=== PATIENT | female | born 1940 | race Caucasian/White ===

== ENCOUNTER 2024-10-28 13:07 | Inpatient (IN) | payer MEDICARE, OTHER, SELFPAY ==
[2024-10-28] VITALS (39 sets, daily range): BP systolic 76–103; BP diastolic 41–62; BMI 26.3
--- NOTE | 2024-10-28 10:03 | ED.GENMED ---
History of Present Illness
General
Chief Complaint: Rectal Bleeding
Time Seen by Provider: 10/28/24 09:52
History of Present Illness
History of Present Illness:
Patient is a 84-year-old woman presenting to the emergency department with vomiting blood. Patient states for the past few weeks she has been taking 880 mg of Aleve a day for leg pain. She states that yesterday she was nauseous. This morning she
woke up nauseous and then vomited bright red blood some clots. She also noticed some maroon-colored stool. She is having some vague epigastric abdominal pain. No prior endoscopy or colonoscopy that she remembers. She denies any lightheadedness
dizziness. She is not on a blood thinner. Per paperwork the patient arrives with her last hemoglobin was 11.1 in September.
Past History
Past History
ED Past Medical History: Other (osteoarthitis)
ED Past Surgical History: Orthopedic (ORIF of femur fx folling auto-ped)
Social History
Tobacco: Non-smoker
Alcohol: None
Drug: None
Phy Exam
Physical Exam
Physical Exam:
GENERAL: Pale
HEENT: normocephalic, extraocular movements intact, moist oral mucosa
NECK: normal inspection
RESPIRATORY: no respiratory distress, clear to auscultation bilaterally
CARDIOVASCULAR: regular rate and rhythm
ABDOMEN/: soft, non-distended, epigastric tenderness,, no rebound or guarding
EXTREMITIES: non-tender, no edema/swelling
NEUROLOGIC: awake and alert, moves all extremities
SKIN: warm
Course
Orders/Labs/Results
Orders:
Orders
10/28/24 09:57
Pantoprazole [Protonix IV] 80 mg IV NOW STA
10/28/24 09:58
Electrocardiogram (*1) Stat
Reason for Study: Other
Other Reason for Exam: GI Bleed
EKG- Treatment ONCE
IV Insert/Care/Rem.- Treatment PRN
10/28/24 10:11
Type+Screen Urgent
Complete Blood Count/With Diff Urgent
Comprehensive Metabolic Panel Urgent
Lipase Urgent
PTT Urgent
Prothrombin Time Urgent
10/28/24 10:24
0.9% Sodium Chloride 1000 ml [Nss] 1,000 ml IV BOLUS
10/28/24 10:49
ABO2 Urgent
BBK Wristband Number:
Associate notified that ABO2 has been ordered: [id number]
Date: 10/28/24
Time: 10:43
Scrip Clerk ID: [id number]
10/28/24 10:50
* Blood Bank Products Urgent
Blood Bank Products: *Packed RBC Leuko(PRBC's)
Quantity: 3
Transfuse Today: Yes
Reason: Anemia
Abnormal Lab Results
10/28/24
10:11
WBC 39.2 H 10^3/uL
(4.8-10.8)
RBC 1.94 L 10^6/uL
(4.20-5.40)
Hgb 5.2 L* g/dL
(12.0-16.0)
Hct 16.4 L* %
(37.0-47.0)
MCH 26.8 L pg
(27.0-31.0)
MCHC 31.7 L g/dL
(33.0-37.0)
RDW 14.9 H %
(11.5-14.5)
Plt Count 435 H 10^3/uL
(130-400)
PT 15.1 H Sec
(11.4-14.6)
Sodium 130 L mmol/L
(135-145)
Chloride 96 L mmol/L
(98-107)
BUN 31 H mg/dl
(7-17)
Creatinine 0.4 L mg/dL
(0.6-1.0)
Glucose 114 H mg/dl
(70-99)
Total Protein 3.9 L g/dl
(6.3-8.2)
Albumin 1.9 L g/dl
(3.5-5.0)
10/28/24 10:11
10/28/24 10:11
Vital Signs
Initial and Last Documented VS:
Initial Vital Signs
Temp Pulse Resp BP Pulse Ox
97.5 F 84 16 76/41 99
10/28/24 09:42 10/28/24 09:42 10/28/24 09:42 10/28/24 09:42 10/28/24 09:42
Last Documented Vital Signs
Temp Pulse Resp BP Pulse Ox
97.5 F 78 16 93/49 95
10/28/24 09:42 10/28/24 10:31 10/28/24 10:53 10/28/24 10:31 10/28/24 10:18
MDM/Problems Addressed
Differential Diagnosis Includes:
Patient is a 84-year-old woman presenting to the emergency department with GI bleeding. Vitals initially notable for blood pressure of 76/41 exam does show woman who is pale appearing. She is not actively vomiting. Concern for upper GI bleed and
possible lower GI bleed given the maroon-colored stool. Will give Protonix and fluids. Low threshold to initiate blood. Will check blood work as well as CTA. Will reach out to GI.
After discussion with GI, we will hold off on CTA. Patient does need endoscopy.
*Critical Care Note
Total Time (30-74mins, 75-104mins- exclusive of procedures): Not Applicable
Update Note
Update Note:
On reevaluation patient blood pressure has been improving with the fluids.
Hemoglobin is 5.2. Will order blood transfusion. If patients blood pressure drops will start emergent transfusion.
I did update GI who will take patient up to the lab later this afternoon. Discussed with hospitalist who accepted patient to their service.
ED Attending Note
-
Portions of this chart may have been created with voice recognition software.� Occasional wrong word or��sound alike� substitutions may have occurred due to the inherent limitations of voice recognition software.
Discharge Plan
Departure
Patient Disposition: Admit
Date of Disposition: 10/28/24
Time of Disposition: 11:06
Presentation/result/management discussed w/ accepting MD/DO: Hospitalist
Discharge Problem:
Acute upper GI bleed
Prescriptions:
No Action
naproxen sodium [Aleve] 220 MG tablet
220 mg PO PRN PRN (Reason: pain.)
acetaminophen 325 MG tablet
650 mg PO Q4HPRN PRN (Reason: mild to moderate pain) Qty: 0 0RF
Referrals:
UNKNOWN - PT DOES,NOT KNOW [Family Provider] -
Interventions
Interventions:
*Risk Screen - Suicide Last Done: 10/28/24 09:42
*General Assessment Last Done: 10/28/24 09:42
*Neglect/Abuse Screening Last Done: 10/28/24 09:42
ED- Fall Risk Assessment Last Done: 10/28/24 10:18
*ED COVID-19 Vaccine History Last Done: 10/28/24 10:53
EJ-Fhtlou-Riwsbcubjr Assessment Last Done: 10/28/24 10:18
ED- Cardiac Assessment Last Done: 10/28/24 10:18
ED- Pulmonary Assessment Last Done: 10/28/24 10:18
Discharge Date and Time
Print Language: TAMAZIGHT
[2024-10-28] MEDS: PROTONIX IV 80 MG IV (10:15)
[2024-10-28] MEDS: NSS 1000 IV (10:24)
[2024-10-28 10:44] LABS: INR 1.14; PT 15.1 Sec (11.4-14.6)
[2024-10-28 10:45] LABS: ALT (SGPT) 12 U/L (0-35); APTT 29.1 Sec (23.4-35.0); AST (SGOT) 21 U/L (14-36); Albumin 1.9 g/dl (3.5-5.0); Alkaline Phosphatase 71 U/L (38-126); Blood Urea Nitrogen 31 mg/dl (7-17); Calcium 8.5 mg/dl (8.4-10.2); Carbon Dioxide 30 mmol/L (22-30); Chloride 96 mmol/L (98-107); Glucose 114 mg/dl (70-99); Lipase 129 U/L (23-300); Sodium 130 mmol/L (135-145); Total Bilirubin 0.4 mg/dl (0.2-1.3); Total Protein 3.9 g/dl (6.3-8.2); eGFR > 60.00
[2024-10-28 10:47] LABS: Hematocrit 16.4 % (37.0-47.0); Hemoglobin 5.2 g/dL (12.0-16.0); Mean Corp Hgb Conc. 31.7 g/dL (33.0-37.0); Mean Corpuscular Hgb 26.8 pg (27.0-31.0); Mean Corpuscular Volume 84.5 fL (81.0-99.0); Mean Platelet Volume 8.9 fL (7.4-10.4); Platelet Count 435 10^3/uL (130-400); Red Blood Cell Count 1.94 10^6/uL (4.20-5.40); Red Cell Dist. Width 14.9 % (11.5-14.5); White Blood Cell Count 39.2 10^3/uL (4.8-10.8)
[2024-10-28 11:28] LABS: % Basophils 0.3 % (0-2); % Eosinophils 0.1 % (0-6); % Immature Granulocytes 1.7 % (0-0.5); % Lymphocytes 2.5 % (20.5-51.1); % Monocytes 4.2 % (1.7-9.3); % Neutrophils 91.2 % (42.2-75.2); Absolute Basophils 0.1 10^3/uL (0-0.2); Absolute Immature Granulocytes 0.7 10^3/uL (0-0.05); Absolute Monocytes 1.7 10^3/uL (0.1-0.6); Absolute Neutrophils 35.7 10^3/uL (1.4-6.5); Nucleated Red Blood Cells % 0 %
--- NOTE | 2024-10-28 11:31 | CON.GI ---
Addendum entered and electronically signed by Alexandra Nye MD 10/28/24 16:30:
I saw and examined the patient.
The GHOST WRITER's note was reviewed and I agree with the note.
Comment: This is a very pleasant 84-year-old female with past medical history as listed below who presented to the emergency room with symptoms of hematemesis. She had been having edema and saw her PCP about a month ago and had blood work done and
was thought to be related to hypoalbuminemia and was told to take more protein supplements also. She is also been recently taking more NSAIDs for joint pain with swelling and yesterday had hematemesis and also had dark stool. Her labs showed
elevated WBC of 39.2 profound anemia with a hemoglobin of 5.2 down from 11.1 in September and thrombocytosis with hyponatremia and also iron deficiency and B12 deficiency.
Assessment and plan acute blood loss anemia with hematemesis and melena. Will schedule her for urgent endoscopy after she gets at least 3 units of packed red blood cells since she was also hypotensive on presentation. She is going to continue on
Protonix drip which has been started in the ER. given her recent use of NSAIDs will need to rule out possible PUD. She also has iron deficiency anemia and will need to rule out possible chronic blood loss from angioectasias or neoplasm. She also
has diffuse anasarca and significant hypoalbuminemia and also B12 deficiency. She will need to be started on B12 supplements and IV iron infusions also. Avoid NSAIDs. Will need further workup for leukocytosis, thrombocytosis and anasarca will
defer to primary may need hematology consult.
Original Note:
Consultation
-
Date/Time Consultation Requested: 10/28/24 1030
Date/Time Consultation Performed: 10/28/24 1130
Requesting Provider: Marilee Boyd MD
Performing Provider: ERVIN Bolden, Alexandra Nye MD
Reason for Consultation: Gi bleed
Medical History
Chief Complaint / HPI
Chief Complaint: GI bleed
History of Present Illness:
Pt is an 84 yo with hx sudhir, hysterectomy, ORIF femur, arthritis, hernia repair with mesh for incarcerated hernia with SB resection presents to ER today with onset of nausea with vomiting red blood and clots. In review with patient and family
noted with fall and rib fractures 3 months ago with Tylenol use then recent onset of diffuse swelling. She saw PCP in September with hbg 11.1 with some elevation of platelets. She began taking NSAID- Aleve 2 tabs BID for pain with swelling and noted
onset of nausea 10/27 then vomiting red blood 2 episode with second episode about 50ml of blood and presents to ER for evaluation. She was also noted with dark stool at home on day of admission. On admission she is noted hypotension with labs
noted WBC 39.2, hbg 5.2 with platelets 435, Na 130, creat 0.4, albumin 1.9.
Pt otherwise denies dysphagia, GERD, nausea, vomiting, wt loss, diarrhea, constipation, or prior bleeding. Pt states possible colonoscopy in past. Family denies hx EGD or colonoscopy in past.
Past Medical History
Past Medical History: Other (osteoarthritis )
Past Surgical History: Cholecystectomy, Gynecological (hysterectomy), Orthopedic (LLE traumatic injury with ORIF femur ) and Other (open umbilical hernia with mesh and SB resection)
Social History
Tobacco: Non-Smoker
Alcohol: None
Drug: None
Living: With Family
Employment: Retired
Family History
Family History: Other (no family hx GI issues, colon CA etc. )
Allergies / Home Medications
Allergy/AdvReac Type Severity Reaction Status Date / Time
No Known Allergies Allergy Verified 10/28/24 09:46
�Medication �Instructions �Recorded
naproxen sodium 220 mg tablet 220 mg PO PRN PRN pain. 11/21/18
(Aleve)
acetaminophen 325 mg tablet 650 mg (2 x 325 mg) PO Q4HPRN PRN 11/27/18
mild to moderate pain #0 tabs
Review of Systems
-
History Source: Patient and Family (granddaughter at bedside )
Constitutional: Reports Weight Gain (with new swelling ) and Fatigue
EENT: Reports No Symptoms
Respiratory: Reports No Symptoms
Cardiac: Reports No Symptoms
Abdomen/GI: Reports Nausea, Vomiting (blood emesis ) and Black Stools (prior to admission)
Musculoskeletal: Reports Other (new onset of diffuse anasarca )
Skin: Reports No Symptoms
Neurological: Reports Weakness
Endocrine: Reports No Symptoms
Hematologic/Lymphatic: Reports Bleeding
Vital Signs
Temp Pulse Resp BP Pulse Ox
97.5 F 80 14 96/52 96
10/28/24 09:42 10/28/24 11:15 10/28/24 11:15 10/28/24 11:15 10/28/24 11:15
Physical Exam
Exam
General: Other (pale appearing, diffuse anasarca in leg and also in arms )
HEENT: Normocephalic
Respiratory: Clear
Cardiac: Regular Rhythm
GI: Soft, Non Tender and Non Distended
Rectal: Other (dark prior to admission)
Musculoskeletal: No Clubbing and No Cyanosis
Skin: Warm and Dry
Neuro: Awake, Alert and AO x 3
Psych: Calm
Results
WBC 39.2 10^3/uL (4.8-10.8) H 10/28/24 10:11
Hgb 5.2 g/dL (12.0-16.0) L* 10/28/24 10:11
Hct 16.4 % (37.0-47.0) L* 10/28/24 10:11
MCV 84.5 fL (81.0-99.0) 10/28/24 10:11
Plt Count 435 10^3/uL (130-400) H 10/28/24 10:11
Absolute Neuts (auto) 35.7 10^3/uL (1.4-6.5) H 10/28/24 10:11
PT 15.1 Sec (11.4-14.6) H 10/28/24 10:11
INR 1.14 10/28/24 10:11
APTT 29.1 Sec (23.4-35.0) 10/28/24 10:11
Sodium 130 mmol/L (135-145) L 10/28/24 10:11
Potassium 5.0 mmol/L (3.5-5.1) 10/28/24 10:11
Chloride 96 mmol/L (98-107) L 10/28/24 10:11
Carbon Dioxide 30 mmol/L (22-30) 10/28/24 10:11
BUN 31 mg/dl (7-17) H 10/28/24 10:11
Creatinine 0.4 mg/dL (0.6-1.0) L 10/28/24 10:11
Calcium 8.5 mg/dl (8.4-10.2) 10/28/24 10:11
Total Bilirubin 0.4 mg/dl (0.2-1.3) 10/28/24 10:11
AST 21 U/L (14-36) 10/28/24 10:11
ALT 12 U/L (0-35) 10/28/24 10:11
Alkaline Phosphatase 71 U/L (38-126) 10/28/24 10:11
Lipase 129 U/L (23-300) 10/28/24 10:11
Diagnostic Image Results:
Prior GI Procedures:
EGD: none
Colonoscopy: ? in past per pt -- family denies
Assessment / Plan
-
Pt is an 84 yo with hx sudhir, hysterectomy, ORIF femur, arthritis, hernia repair with mesh for incarcerated hernia with SB resection presents to ER today with onset of nausea with vomiting red blood and clots. In review with patient and family
noted with fall and rib fractures 3 months ago with Tylenol use then recent onset of diffuse swelling. She saw PCP in September with hbg 11.1 with some elevation of platelets. She began taking NSAID- Aleve 2 tabs BID for pain with swelling and noted
onset of nausea 10/27 then vomiting red blood 2 episode with second episode about 50ml of blood and presents to ER for evaluation. She was also noted with dark stool at home on day of admission. On admission she is noted hypotension with labs
noted WBC 39.2, hbg 5.2 with platelets 435, Na 130, creat 0.4, albumin 1.9. Family denies hx EGD or colonoscopy in past.
-onset of nausea/vomiting with hematemesis
-recent NSAID use
- anemia with drop in hbg 11.1 in September to 5.2 on admission
-new onset anasarca/hypoalbuminemia
-leukocytosis
-thrombocytosis
-hyponatremia
-hx fall with rib fx 3 months ago
other med problems:
-sudhir
-hysterectomy
-ORIF femur
-arthritis
-hernia repair with mesh with SB resection
PLAN:
etiology of hematemesis with acute drop hbg 11.1 in September to 5.2 today unclear -- PUD with recent NSAID use, ectasia, mass vs other
concern for some other underlying process with new diffuse anasarca, hypoalbuminemia, hyponatremia -- reviewed with Dr. Dang-- for echo, urine studies
trend hbg agree with transfusion
possible EGD later today vs tomorrow -will review with Dr. Nye with other medical issues and first transfusion running now
PPI gtt
add iron studies, B12, folate
NSAID avoidance
consider eventual colonoscopy inpatient vs outpatient pending course
granddaughter updated at bedside
-
-
Thank you for consultation and allowing me to participate in the patient's care. Please call the foreign law consultant GI physician during the after hours with any questions or concerns.
--- NOTE | 2024-10-28 12:13 | HPS.HSE ---
Family Physician
-
Family Physician: NOT KNOW UNKNOWN - PT DOES
Chief Complaint
-
vomiting
History of Present Illness
84-year-old female extensive past medical history is presenting from home with complaints of nausea and vomiting of bright red blood. Patient granddaughter is able to fill in the details of the history. Per patient granddaughter post hernia
surgery patient appetite has significantly decreased. Patient was having significant amount of body pain extremity pain. Patient saw primary doctor last month where blood work was checked was found patient had hemoglobin of 11 with elevated
platelets and low albumin. Patient with significantly poor appetite. Patient with weight loss. Granddaughter states of noticing lower extremity edema and bilateral upper extremity edema. No prior history of cardiac or renal disease. Because of
the lower extremity edema pain patient was taking increasing amount of naproxen. Also with maroon colored stools.
Medical History
Past Medical History
Past Medical History: Reports Other
Additional Past Medical History:
Osteoarthritis
Umbilical hernia
Past Surgical History: Reports Other
Additional Past Surgical History:
Hysterectomy
Cholecystectomy
Left tibial plates
Umbilical hernia with mesh and bowel resection
Social History
Tobacco: Non-smoker
Alcohol: None
Living: With Family
Family History
Family History: Not pertinent
Allergies / Home Medications
Allergies reflects when Allergies were last updated in [employer].
Home Medications with original date entered in [employer]
Allergy/Medication List:
Allergies
Allergy/AdvReac Type Severity Reaction Status Date / Time
No Known Allergies Allergy Verified 10/28/24 09:46
Home Medications
naproxen sodium 220 mg tablet (Aleve) 440 mg PO BID 11/21/18
Review of Systems
-
History Source: Patient and Family (Granddaughter)
A 12 point ROS was completed and negative except as noted: Yes
Physical Exam
Vital Signs
Vital Signs
Temp Pulse Resp BP Pulse Ox
97.5 F 74 16 92/55 98
10/28/24 12:04 10/28/24 12:04 10/28/24 12:04 10/28/24 12:04 10/28/24 12:04
Physical Exam
General: No Apparent Distress and Cachectic
HEENT: NormoCephalic, Moist mucous membranes and Atraumatic
Respiratory: Clear
Cardiac: S1/S2 and Regular Rhythm; No Murmur or Rub
GI: Soft, Non Tender, Non Distended and Normal Bowel Sounds; No Organomegaly
Rectal: Deferred by Provider
Musculoskeletal: No Clubbing, No Cyanosis, Edema, Left Upper Extremity, Edema, Right Upper Extremity, Edema, Left Lower Extremity and Edema, Right Lower Extremity
Skin: No Rash
Neuro: Awake, Alert, Oriented, AO x 3, No Motor Deficits and Nonfocal/grossly intact
Psych: Calm
Laboratory Results
-
10/28/24 10:11
10/28/24 10:11
Laboratory Results
PT 15.1 Sec (11.4-14.6) H 10/28/24 10:11
INR 1.14 10/28/24 10:11
APTT 29.1 Sec (23.4-35.0) 10/28/24 10:11
Total Bilirubin 0.4 mg/dl (0.2-1.3) 10/28/24 10:11
AST 21 U/L (14-36) 10/28/24 10:11
ALT 12 U/L (0-35) 10/28/24 10:11
Alkaline Phosphatase 71 U/L (38-126) 10/28/24 10:11
Lipase 129 U/L (23-300) 10/28/24 10:11
Impression/Plan
-
#Hematemesis suspected acute upper GI bleeding exacerbated due to NSAID usage
#Acute blood loss anemia
#Shock likely hemorrhagic due to volume loss
Agree with blood transfusion. Recheck hemoglobin post blood transfusion
Start pressors if needed
Status post PPI bolus. Continue with Protonix drip
Avoid all NSAIDs. This was discussed with patient and granddaughter at bedside. Patient verbalized understanding
Plan for endoscopy later today versus tomorrow
Colonoscopy per GI
Monitor in the ICU
GI evaluated patient
Hr Receptionist consultation
#Iron deficiency anemia
#Vitamin B12 deficiency
Start patient on IV iron while here
Start patient B12 supplementation
#Anasarca/hypoalbuminemia
Low albumin likely could be due to dietary deficiency
Check urine protein creatinine ratio
Check echocardiogram
Gentle IV fluids if needed
Creatinine normal. Check urine for proteinuria
If it worsening anasarca may need gentle diuresis if blood pressure can tolerate
#Severe leukocytosis
Could be reactive due to episode of GI bleeding
If patient spikes fevers blood culture and chest x-ray
Trend CBC for now
#Thrombocytosis
Monitor for now
#Mild hyponatremia likely second to hypovolemia
Status post IV fluid bolus
Trend sodium for now
If with persistent drop then check urine lites
Sodium at 130.
DVT prophylaxis SCDs in the setting of GI bleeding
Full code
Total Critical Care Time 40_ minutes. I was immediately available to the patient and staff. I personally examined, reviewed labs, diagnostic images/reports, interpretations, treatment plans, discussed patient care with other providers and family
or caregivers (if patient is unable to make decisions), entered orders as appropriate and documented the medical record.
[2024-10-28 13:23] LABS: Iron 23 ug/dl (37-170)
[2024-10-28 13:32] LABS: Percent Saturation 10 % (20-50); Total Iron Binding Capacity 224 ug/dl (265-497)
[2024-10-28 14:50] LABS: Folate 5.6 ng/ml (2.76-20); Vitamin B12 180 pg/ml (239-931)
[2024-10-28] MEDS: PROTONIX 100 IV ×2 (14:59→23:44)
--- NOTE | 2024-10-28 16:03 | CON.INTV ---
Consultation
Consultation Request
Date/Time Consultation Requested: 10/28/2024 12:07
Date/Time Consultation Performed: 10/28/2024 14:00
Requesting Provider: Ede Dang MD
Performing Provider: Ramón Vance MD; Robe Kellogg DO (Resident)
Reason for Consultation: Acute GI Bleed
Medical History
-
History of Present Illness:
This is an 84 year old female with a past medical history of osteoarthritis and a recent fall 3 months ago with resultant rib injury who presented to the emergency department this morning after having 2 episodes of hematemesis and 1 episode of
melena earlier this morning. The patient states that she felt to be in her usual state of health until yesterday, when she started to feel mildly nauseous. This morning, the nausea continued, and the patient had 2 episodes of a moderate amount of
bloody clot-laden emesis. At this point, she called her daughters who felt that the patient seemed weak and fatigued. The patient herself endorses a feeling of weakness, and shortness of breath with exertion after the episodes of hematemesis +
melena that is out of the ordinary for her. The patient otherwise denies any headaches, chest pains, shortness of breath at rest, diarrhea, constipation.
Less acutely, the patient notes that she has experienced swelling of her bilateral upper and lower extremities for approximately 3 months. The patient, who does not normally go to the doctor, went to her primary care physician. Hemoglobin at that
visit was 11.1, and the swelling was thought to be due to low total body protein. Additionally, during this time, the patient started to use Aleve (220 mg x 2 tabs, BID) for her chronic osteoarthritic pain and pain from a recent fall in which she
injured her ribs (denies fracture).
In the Emergency Department, the patient appeared pale with a benign abdomen. However, laboratory studies revelead a Hb of 5.2, Hct of 16.4 and mild thrombocytosis of 433 (patient notes mild thrombocytosis was also seen on prior outpatient labs in
Sep) and leukocytosis of 39.2 with neutrophilic predominance. Patient was additionally hyponatremic at 130, hypoalbuminemic at 1.9, and iron studies with an anemia of chronic disease pattern. The patient was type/screened, given 3U pRBCs, started on
IVF resuscitation and Protonix with emergent evaluation by gastroenterology. Patient was admitted to the ICU for intensive management of acute GI bleed.
Past Medical History
Past Medical History: Other (osteoarthritis )
Past Surgical History: Other (Cholecystectomy, hysterectomy, open reduction internal fixation, hernia repair with mesh)
Social History
Tobacco: Non-smoker
Alcohol: Occasional
Drug: None
Living: With Family
Family History
Family History: Reviewed & Not Pertinent
Allergies / Home Medications
Allergies
Allergy/AdvReac Type Severity Reaction Status Date / Time
No Known Allergies Allergy Verified 10/28/24 09:46
Home Medications
�Medication �Instructions �Recorded �Confirmed �Last Taken �Type
naproxen sodium 220 mg tablet 440 mg PO BID 11/21/18 10/28/24 10/27/24 History
(Aleve)
Review of Systems
-
History Source: Patient and Family
Constitutional: Fever (n), Fatigue and Chills (n)
EENT: Other (dysphagia (n))
Respiratory: No Symptoms
Cardiac: No Symptoms
Abdomen/GI: Abdominal Pain (n), Nausea, Vomiting (2 episodes of hematemesis), Diarrhea (n) and Black Stools (episode)
: No Symptoms
Musculoskeletal: Edema (bilateral lower and upper extremities x 3 months)
Neuro: No Symptoms
Vitals / Labs / Diagnostic Testing
Vital Signs
Temp Pulse Resp BP Pulse Ox
98.1 F 79 16 96/57 98
10/28/24 15:31 10/28/24 15:31 10/28/24 15:31 10/28/24 15:31 10/28/24 15:31
Lab Data
10/28/24 10:11
10/28/24 10:11
Laboratory Results
10/28/24
10:11
PT 15.1 H
INR 1.14
APTT 29.1
Diagnostic Testing:
ECG (10/28): NSR, Normal ECG
Iron Studies: Low Iron, Low TIBC, Low % Sat, Normal Ferritin (ACD picture)
Physical Exam
-
HEENT: Normocephalic, Anicteric and Other (conjunctival pallor)
Cardiovascular: S1/S2, Regular Rhythm, Murmur (n), Rub (n) and Peripheral Edema (3+ edema in the lower extremities bilaterally up to the level of the thighs, 3+ edema in the upper extremities bilaterally up to the level of the mid-forearm)
Respiratory: Clear, Wheeze (n), Rales (n), Rhonchi (n) and Non-Labored Respirations
GI: Soft, Non Distended, Non Tender and Normal Bowel Sounds
Neurology: Awake, Alert and Oriented
Skin: Warm and Dry
General: Respiratory Distress (n), Comfortable, Pain (n), Fever (n) and Poor Appetite
Assessment
-
Opal Harris is an 84-year-old female with a past medical history of osteoarthritis, anasarca secondary to hypoalbuminemia, recent hernia pair with mesh, recent fall 3 months ago with resultant rib injury (no fractures), and is not on any
anticoagulation, who presented to the emergency department this afternoon with 2 episodes of hematemesis and 1 episode of melena earlier today resulting in a hemoglobin level of 5.2 and a hematocrit of 16.4 necessitating repletion of 3 units of
packed red blood cells in the emergency department. Patient was admitted to the ICU for intensive management of acute upper GI bleed.
Impression:
Acute Upper GI Bleed +/- Lower GI Bleed
2 episodes of hematemesis and 1 episode of melena prior to arrival
Patient has been using Aleve 440mg BID for approximately 2 weeks, with questionable occasional use prior to this
Hemoglobin on arrival 5.2, hematocrit 16.4.
Patient being followed by GI; scheduled for emergent EGD today.
-Hemorrhagic, diffusely ulcerated gastropathy; suspicious for linitis plastica. Biopsies sent.
Patient started on Protonix for GI PPx
Acute Blood Loss Anemia in the Setting of Likely Anemia of Chronic Disease
Hb 5.2; s/p 3U pRBC in the ED; see above
Hypotension
BP 91/57 (MAP 68); otherwise hemodynamically stable
Leukocytosis
WBC 39.2 on admission
Hyponatremia
Other Conditions Present Prior to Arrival
Subacute Thrombocytosis
Subacute Anasarca Secondary to Hypoalbuminemia
Chronic Pain secondary to Osteoarthritis
Recent Hernia with Mesh Repair
Plan:
Neuro:
Pain Control; avoid NSAIDs; Tylenol 650 mg PO PRN for mild pain
Cardiovascular:
Continue IVF. NS to replete hyponatremia.
Continue to monitor BP with goal MAP of >65
Consider repletion of Albumin, otherwise may require pressors
Respiratory:
Stable. PT/OT when able.
GI:
Patient being followed by GI.
Follow up endoscopic biopsy results.
Inpatient vs. outpatient colonoscopy to be decided by GI.
Protonix for GI PPx.
ID:
Continue to monitor WBC Count.
Heme/Onc:
SCD for DVT PPx
s/p 3U pRBC; transfuse for Hb < 7
Consider oncology consult pending biopsy results
Data Reviewed
-
EKG: Tracing personally visualized and interpreted and Report reviewed by me
Labs: Labs reviewed by me and Discussed with Patient
[2024-10-28 18:08] LABS: Hematocrit 27.2 % (37.0-47.0); Hemoglobin 9.1 g/dL (12.0-16.0)
--- NOTE | 2024-10-28 21:10 | PTCARENOTE ---
Pt AAOx3. SPO2 96% RA lungs clear. Protonix gtt hanging. Pt has no complaints at this time. Call robles within reach.
[2024-10-28 22:41] LABS: Hematocrit 25.4 % (37.0-47.0); Hemoglobin 8.6 g/dL (12.0-16.0)
[2024-10-28] MEDS: FLEXBUMIN 100 IV (23:30)
[2024-10-29] VITALS (69 sets, daily range): BP systolic 84–120; BP diastolic 48–68; BMI 25.9
--- NOTE | 2024-10-29 00:09 | PTCARENOTE ---
Pt repeat H&H 8.6/25.4. Pt bp's becoming soft 80's/40's Pt remains Asymptomatic. Orders placed for Flexbumin and Levophed.
[2024-10-29 00:48] LABS: Urine Albumin 1+ (Neg - Trace); Urine Bilirubin Negative (Negative); Urine Character Slightly Cloudy (Clear); Urine Color Yellow; Urine Glucose Negative (Negative); Urine Ketone Negative (Negative); Urine Leukocyte Negative (Negative); Urine Nitrite Negative (Negative); Urine Occult Blood Negative (Negative); Urine Urobilinogen Negative (Neg - 1+)
[2024-10-29 01:08] LABS: Protein/creatinine Ratio 0.2; Urine Protein 12 mg/dl
[2024-10-29 01:24] LABS: Urine Amorphous Seen; Urine Squamous Cell >30 /LPF (Few)
[2024-10-29 01:25] LABS: Urine Bacteria Many (Negative)
[2024-10-29] MEDS: LEVOPHED 250 IV (02:06)
[2024-10-29 05:46] LABS: % Basophils 0.4 % (0-2); % Eosinophils 0.3 % (0-6); % Immature Granulocytes 1.1 % (0-0.5); % Lymphocytes 5.8 % (20.5-51.1); % Monocytes 7.9 % (1.7-9.3); % Neutrophils 84.5 % (42.2-75.2); Absolute Basophils 0.1 10^3/uL (0-0.2); Absolute Eosinophils 0.1 10^3/uL (0-0.7); Absolute Immature Granulocytes 0.2 10^3/uL (0-0.05); Absolute Lymphocytes 1.2 10^3/uL (1.2-3.4); Absolute Monocytes 1.6 10^3/uL (0.1-0.6); Absolute Neutrophils 16.8 10^3/uL (1.4-6.5); Hematocrit 25.4 % (37.0-47.0); Hemoglobin 8.4 g/dL (12.0-16.0); Mean Corp Hgb Conc. 33.1 g/dL (33.0-37.0); Mean Corpuscular Hgb 27.6 pg (27.0-31.0); Mean Corpuscular Volume 83.6 fL (81.0-99.0); Mean Platelet Volume 8.5 fL (7.4-10.4); Nucleated Red Blood Cells % 0 %; Platelet Count 353 10^3/uL (130-400); Red Blood Cell Count 3.04 10^6/uL (4.20-5.40); Red Cell Dist. Width 16.4 % (11.5-14.5); White Blood Cell Count 19.9 10^3/uL (4.8-10.8)
--- NOTE | 2024-10-29 05:55 | PTCARENOTE ---
Pt spo2 dropping to mid 80's while sleeping, Pt placed on 2L nc spo2 now in mid 90's. Pt continues on Levo gtt @ 4mcg/min, MAP maintaining >65. Protonix gtt continues. Pt denies pain. No BM over night.
[2024-10-29 06:03] LABS: Blood Urea Nitrogen 25 mg/dl (7-17); Calcium 8.2 mg/dl (8.4-10.2); Carbon Dioxide 29 mmol/L (22-30); Chloride 99 mmol/L (98-107); Estimated Creatinine Clearance 58 ml/min; Glucose 68 mg/dl (70-99); Magnesium 1.9 mg/dl (1.6-2.3); Potassium 4.3 mmol/L (3.5-5.1); Sodium 132 mmol/L (135-145); eGFR > 60.00
[2024-10-29] MEDS: VITAMIN B-12 PO (08:24)
--- NOTE | 2024-10-29 09:09 | W.PN.INTV ---
Today's Communication / Plan
Recommendations
Pressor support/intravascular volume repletion; wean Levophed as tolerated, give Albumin IV, consider Midodrine
Continue to monitor CBC q8-q12h; monitor BMs for blood
Follow up Vitamin B12, hyponatremia, leukocytosis
Consider downgrade to [facility] once cleared by GI and no longer on pressor support
Assessment
-
Opal Harris is an 84-year-old female with a past medical history of osteoarthritis, anasarca secondary to hypoalbuminemia, recent hernia repair with mesh, recent fall 3 months ago with resultant rib injury (no fractures), and is not on any
anticoagulation, who presented to the emergency department this afternoon with 2 episodes of hematemesis and 1 episode of melena yesterday (10/28) resulting in a hemoglobin level of 5.2 and a hematocrit of 16.4 necessitating repletion with 3 units of
packed red blood cells in the emergency department (10/28). Patient was admitted to the ICU (10/28) for intensive management of acute upper GI bleed and pressor support of soft blood pressures.
Impression:
Acute Upper GI Bleed +/- Lower GI Bleed
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
Patient has been using Aleve 440mg BID for approximately 2 weeks, with questionable occasional use prior to this
Hemoglobin on arrival 5.2, hematocrit 16.4.
- Appropriate response to 3U pRBC, hemoglobin corrected to 9.1, slight drop to 8.4 this AM
EGD (10/28): Hemorrhagic, diffusely ulcerated gastropathy; suspicious for linitis plastica. Biopsies sent.
Patient started on Protonix for GI PPx
Acute Blood Loss Anemia in the Setting of Likely Anemia of Chronic Disease
Hb 5.2; s/p 3U pRBC in the ED; see above
Vitamin B12 low; pending MMA and homocysteine level - possible Vit B12 deficiency in the setting of diffuse gastric ulceration and decreased intrinsic factor production/secretion
Hypotension
Patient given 25 g Albumin and started on Levophed; maximum dose of 4mcg/min, currently at 1mcg/min
Leukocytosis
WBC 39.2 on admission, currently 19.9
Hyponatremia
Na 132, improving.
Other Conditions Present Prior to Arrival
Subacute Thrombocytosis
Subacute Anasarca Secondary to Hypoalbuminemia
Chronic Pain secondary to Osteoarthritis
Recent Hernia with Mesh Repair
Plan:
Neuro:
Pain Control; strict avoidance of NSAIDs; Tylenol 650 mg PO PRN for mild pain
Cardiovascular:
Continue Levophed for BP support, but wean as tolerated; continue to monitor BP with goal MAP of >65
Received 25 g Albumin last night. Given the patient's chronic hypoalbuminemia and history of third spacing, will try albumin for fluid resuscitation
Given relatively small need for Levophed, consider Midodrine prior to transfer to telemetry, if GI does not plan on doing any more procedures
Respiratory:
Stable. PT/OT when able.
GI:
Patient being followed by GI.
Follow up endoscopic biopsy results.
Inpatient vs. outpatient colonoscopy to be decided by GI.
Protonix for GI PPx.
Advance to [facility] per GI
ID:
Continue to monitor WBC Count.
Heme/Onc:
SCD for DVT PPx
s/p 3U pRBC; transfuse for Hb < 7
Consider oncology consult pending biopsy results
Follow up MMA and Homocysteine level
Subjective Dataa
Subjective Data
Date of Service:
Date of Service: October 29, 2024
Chief Complaint: Neurology Nurse Follow Up
Subjective:
Patient seen and examined while resting comfortably in bed, with daughter at bedside. Hemoglobin responded to 3U pRBC yesterday, and no overnight emetic events or bowel movements. Patient denies any abdominal pains, chest pains, shortness of breath,
dizziness. Feels mildly improved from a fatigue standpoint from yesterday. Pt was mildly hypotensive last night, was given 25 g Albumin, and then started on Levophed, went as high as 4mcg/min, currently at 1 mcg/min.
Review of Systems
General: Fever (n), Chills (n), Pain (n) and Bleeding (n)
HEENT: Dysphagia (n)
Cardiopulmonary: Dyspnea (n), Chest Pain (n) and Edema (bilateral lower and upper extremities (subacute))
GI: Abdominal Pain (n), Nausea (n), Vomiting (n), Diarrhea (n), Constipation (n) and Melena ((n), no BM overnight)
Neuro: Dizziness (n)
Objective Data
Data Reviewed
Vital Signs / I&O / Oxygen:
Vital Signs
Temp Pulse Resp BP Pulse Ox
99.2 F 72 15 108/68 98
10/29/24 03:44 10/29/24 05:30 10/29/24 05:30 10/29/24 05:30 10/29/24 05:30
Intake and Output
10/28/24 10/29/24 10/30/24
06:59 06:59 06:59
Intake Total 960 / 960
Output Total 600 / 600
Balance 360 / 360
SaO2 98
Physical Exam
General: Respiratory Distress (n), Comfortable, Pain (n), Fever (n) and T Max (99.2)
HEENT: Normocephalic and Anicteric
Cardiovascular: S1-S2, Regular Rhythm, Murmur (n) and Rub (n)
Respiratory: Clear, Wheeze (n), Crackles (n), Rhonchi (n) and Non-Labored Respirations
GI: Soft, Non Distended, Non Tender and Normal Bowel Sounds
Neurology: Awake, Alert, Oriented and No Motor Deficits
Skin: Warm and Dry
Labs/Micro/Reports
Lab Data
10/29/24 05:24
10/29/24 05:24
Laboratory Results
10/28/24
10:11
PT 15.1 H
INR 1.14
APTT 29.1
[2024-10-29] MEDS: PROTONIX 100 IV ×2 (09:44→21:00)
--- NOTE | 2024-10-29 10:01 | PTCARENOTE ---
Updated assessment, vital signs ongoing and as documented. Follow up am plan of cares, await gi team for updated plan of cares. Daughter at bedside. Follow up with hospitalist team. At bedside working with patient. Updates with pharmacy, Protonix
drip continues. Will follow up plan of cares in am rounds. Update with Retail Performance Specialist at bedside this am.
--- NOTE | 2024-10-29 11:36 | CM ---
CM following re: discharge planning.
Reviewed pt's chart, met with pt. Pt's daughter and nephew at bedside.
Pt is an 84 year old female, admitted with primary dx of nausea and vomiting, bright red clots and rectal bleeding.
Pt reports she lives with daughter 2SH [place], 2 steps to enter, has 3 supportive children. Pt reports she ambulates with a walker at baseline, family helps as needed. No VN or SNF history.
PT and OT will evaluate the pt to determine a level of care at discharge.
PCP: Guicho Barnard
Pharmacy: [facility]
D/C plan: uncertain at this time, most likely home home VN services. PT and OT to confirm
CM will follow with discharge plan updates as hospitalization progresses
--- NOTE | 2024-10-29 11:39 | W.PN.GI.CBS2 ---
Today's Communication / Plan
-
clears today
Assessment / Plan
-
Pt is an 84 yo with hx sudhir, hysterectomy, ORIF femur, arthritis, hernia repair with mesh for incarcerated hernia with SB resection presents to ER today with onset of nausea with vomiting red blood and clots. In review with patient and family
noted with fall and rib fractures 3 months ago with Tylenol use then recent onset of diffuse swelling. She saw PCP in September with hbg 11.1 with some elevation of platelets. She began taking NSAID- Aleve 2 tabs BID for pain with swelling and noted
onset of nausea 10/27 then vomiting red blood 2 episode with second episode about 50ml of blood and presents to ER for evaluation. She was also noted with dark stool at home on day of admission. On admission she is noted hypotension with labs
noted WBC 39.2, hbg 5.2 with platelets 435, Na 130, creat 0.4, albumin 1.9. Family denies hx EGD or colonoscopy in past.
-onset of nausea/vomiting with hematemesis
-recent NSAID use
- anemia with drop in hbg 11.1 in September to 5.2 on admission
-new onset anasarca/hypoalbuminemia
-leukocytosis
-thrombocytosis
-hyponatremia
-hx fall with rib fx 3 months ago
other med problems:
-sudhir
-hysterectomy
-ORIF femur
-arthritis
-hernia repair with mesh with SB resection
PLAN:
Severe anemia secondary to acute blood loss and chronic blood loss.
Status post EGD 10/28 which showed severe gastritis with ulcerated nodular hemorrhagic mucosa which was biopsied path pending concerning for possible lymphoma versus lienitis plastica
Malabsorption may be related to this
Has evidence of iron deficiency and B12 deficiency also
Was started on iron infusions and B12 injection yesterday
concern for some other underlying process with new diffuse anasarca, hypoalbuminemia, hyponatremia, leukocytosis and thrombocytosis
PPI gtt continue can change to bid tomorrow
added carafate also
She is also receiving albumin infusions and her edema seems to have improved
NSAID avoidance
chest,Abdomen CT when more stable
May need hematology consult based on pathology and CT results
Subjective
Subjective
Date of Service: October 29, 2024
Hemoglobin responded after 3 units of packed red blood cells from 5.4-8.2 and has not had any rectal bleeding or hematemesis overnight
Objective
Data Reviewed
Laboratory Data:
Laboratory Results
10/29/24 05:24
Laboratory Results
PT 15.1 Sec (11.4-14.6) H 10/28/24 10:11
INR 1.14 10/28/24 10:11
APTT 29.1 Sec (23.4-35.0) 10/28/24 10:11
Magnesium 1.9 mg/dl (1.6-2.3) 10/29/24 05:24
Total Bilirubin 0.4 mg/dl (0.2-1.3) 10/28/24 10:11
AST 21 U/L (14-36) 10/28/24 10:11
ALT 12 U/L (0-35) 10/28/24 10:11
Alkaline Phosphatase 71 U/L (38-126) 10/28/24 10:11
Lipase 129 U/L (23-300) 10/28/24 10:11
Vital Signs and I&O:
Vital Signs
Temp Pulse Resp BP Pulse Ox
98.4 F 71 17 89/58 96
10/29/24 09:34 10/29/24 10:30 10/29/24 10:30 10/29/24 10:30 10/29/24 10:30
I&O
10/28/24 10/29/24 10/30/24
06:59 06:59 06:59
Intake Total 960 / 985 77.5 / 77.5
Output Total 600 / 600 300 / 300
Balance 360 / 385 -222.5 / -222.5
10/28/24 EGD
Impression: - Normal esophagus.
- Hemorrhagic, diffusely ulcerated gastropathy.
Biopsied.
- Normal examined duodenum. Biopsied.
Physical Exam
Physical Exam
Cardiology: Normal Sinus Rhythm
Pulmonary: Clear
GI: Soft, Non Distended, Non Tender and Normal Bowel Sounds
[2024-10-29] MEDS: FLEXBUMIN 100 IV ×2 (12:23→16:17)
--- NOTE | 2024-10-29 12:44 | W.PN.HOSP.TC ---
Today's Communication/Plan
-
Started on clears
IV albumin
PPI drip
Start midodrine
Wean off Levophed
Trend H&H
Assessment / Plan
Assessment / Plan
General: No Apparent Distress and Cachectic
HEENT: NormoCephalic, Moist mucous membranes and Atraumatic
Respiratory: Clear
Cardiac: S1/S2 and Regular Rhythm; No Murmur or Rub
GI: Soft, Non Tender, Non Distended and Normal Bowel Sounds; No Organomegaly
Rectal: Deferred by Provider
Musculoskeletal: No Clubbing, No Cyanosis, Edema, Left Upper Extremity, Edema, Right Upper Extremity, Edema, Left Lower Extremity and Edema, Right Lower Extremity-improvement lower extremity edema
Skin: No Rash
Neuro: Awake, Alert, Oriented, AO x 3, No Motor Deficits and Nonfocal/grossly intact
Psych: Calm
#Hematemesis suspected acute upper GI bleeding exacerbated due to NSAID usage
#Acute blood loss anemia
#Shock likely hemorrhagic due to volume loss
Status post 3 units of PRBC. Hemoglobin 8.4. Repeat pending.
Wean off Levophed as tolerated
Status post PPI bolus. Continue with Protonix drip
Avoid all NSAIDs. This was discussed with patient and granddaughter at bedside. Patient verbalized understanding
Status post emergent endoscopy with finding of Diffuse hemorrhagic ulcerated mucosa with intermittent nodularity with no bleeding and stigmata of recent bleeding was found in the entire examined stomach. Stomach was also narrowed and gave the
appearance of linitis plastica. Old blood seen in the fundus. No normal mucosa seen. s/p biopsies.
Colonoscopy per GI
Started on clears
Start on midodrine and wean off Levophed if if possible
Plan for CAT scan pending stabilization of hemodynamics.
Appreciate ICU and GI assistance
#Iron deficiency anemia
#Vitamin B12 deficiency
Start patient on IV iron while here
Start patient B12 supplementation
#Anasarca/hypoalbuminemia
Low albumin likely could be due to dietary deficiency
Check urine protein creatinine ratio with 200 mg. Will require further workup with nephrology as outpatient
Check echocardiogram
Gentle IV fluids if needed
Creatinine normal.
Currently on albumin per numerical control machine tool operator
If it worsening anasarca may need gentle diuresis if blood pressure can tolerate
#Severe leukocytosis
Could be reactive due to episode of GI bleeding
If patient spikes fevers blood culture and chest x-ray
Trend CBC for now
WBC is downtrending. Platelets have down trended.
#Thrombocytosis
Monitor for now
Platelets improved.
#Mild hyponatremia likely second to hypovolemia
Status post IV fluid bolus
Trend sodium for now
If with persistent drop then check urine lites
Sodium is improving.
DVT prophylaxis SCDs in the setting of GI bleeding
Full code
Discussed with patient daughter at bedside in details
Anticipated Discharge: > 48 hours
Subjective/Interval History
-
Date of Service: October 29, 2024
States feeling weak
Denies lower extremity leg pain
Denies abdominal pain
States of dry heaves
Objective Data
-
Labs:
Laboratory Results
10/29/24 10/29/24 10/29/24
05:24 05:24 05:24
WBC 19.9 H
Hgb Cancelled 8.4 L
Hct Cancelled 25.4 L
Plt Count 353
Sodium 132 L
Potassium 4.3
Chloride 99
Carbon Dioxide 29
BUN 25 H
Creatinine 0.4 L
Glucose 68 L
Calcium 8.2 L
10/29/24
14:00
WBC Pending
Hgb Pending
Hct Pending
Plt Count Pending
Sodium
Potassium
Chloride
Carbon Dioxide
BUN
Creatinine
Glucose
Calcium
Vital Signs:
Vital Signs
Temp Pulse Resp BP Pulse Ox
98.5 F 71 17 89/58 96
10/29/24 12:13 10/29/24 10:30 10/29/24 10:30 10/29/24 10:30 10/29/24 10:30
I&O
10/28/24 10/29/24 10/30/24
06:59 06:59 06:59
Intake Total 960 / 985 77.5 / 77.5
Output Total 600 / 600 300 / 300
Balance 360 / 385 -222.5 / -222.5
Data Reviewed
-
Total Time Spent with Patient (in minutes): 55
[2024-10-29] MEDS: ProAmatine 5 MG PO ×2 (12:57→17:53)
[2024-10-29 14:28] LABS: Hematocrit 24.2 % (37.0-47.0); Mean Corp Hgb Conc. 33.1 g/dL (33.0-37.0); Mean Corpuscular Hgb 27.7 pg (27.0-31.0); Mean Corpuscular Volume 83.7 fL (81.0-99.0); Mean Platelet Volume 8.4 fL (7.4-10.4); Platelet Count 346 10^3/uL (130-400); Red Blood Cell Count 2.89 10^6/uL (4.20-5.40); Red Cell Dist. Width 16.4 % (11.5-14.5); White Blood Cell Count 20.2 10^3/uL (4.8-10.8)
[2024-10-29] MEDS: FERRLECIT 110 MG IV (14:45)
[2024-10-29] MEDS: CARAFATE SUSPENSION 1 GM PO ×2 (16:17→20:59)
--- NOTE | 2024-10-29 17:47 | PTCARENOTE ---
Assessment update. Two loose black brown old watery stools. Patient vss and as documented. Remains on protonix. Off levophed thru afternoon. Two rounds SPAalbumin as ordered, medications reviewed with pharmacy and followed via [facility]. Echo completed
earlier today. Continue follow up labs, review with hospitalist and orthopedic nurse team. Daughter at bedside. Family verbalizes appreciation of cares and service provided. Continue supportive cares and emotional support.
--- NOTE | 2024-10-29 20:00 | PTCARENOTE ---
Received pt resting in bed, AAOx3, able to make needs known. No complaints at this time. NAVAS but with generalized weakness. NSR on tele, HR 60s-70s. BP 90-100s/50s-60s. Afebrile. +3 gen anasarca present. Pt and family states it is improved overall.
On RA. Spo2 91-93%. Lungs CTA but diminished throughout, poor effort. Hypoactive bowel sounds. Tolerating clear liquid diet. No BM this shift thus far. Incontinent of han urine - cleaned and changed. R AC with protonix gtt as ordered. Call robles in
reach.
[2024-10-29 21:18] LABS: Hematocrit 23.8 % (37.0-47.0); Hemoglobin 7.8 g/dL (12.0-16.0); Mean Corp Hgb Conc. 32.8 g/dL (33.0-37.0); Mean Corpuscular Hgb 27.1 pg (27.0-31.0); Mean Corpuscular Volume 82.6 fL (81.0-99.0); Mean Platelet Volume 8.4 fL (7.4-10.4); Platelet Count 280 10^3/uL (130-400); Red Blood Cell Count 2.88 10^6/uL (4.20-5.40); Red Cell Dist. Width 16.5 % (11.5-14.5); White Blood Cell Count 13.4 10^3/uL (4.8-10.8)
--- NOTE | 2024-10-29 23:41 | PTCARENOTE ---
Placed on 1L NC due to sats dipping to high 80s while sleeping. Spo2 96% now. Pt. resting.
[2024-10-30] VITALS (21 sets, daily range): BP systolic 82–131; BP diastolic 49–65; BMI 26.3
[2024-10-30 04:23] LABS: % Basophils 0.4 % (0-2); % Eosinophils 0.6 % (0-6); % Lymphocytes 7.9 % (20.5-51.1); % Monocytes 8.6 % (1.7-9.3); % Neutrophils 81.5 % (42.2-75.2); Absolute Basophils 0.1 10^3/uL (0-0.2); Absolute Eosinophils 0.1 10^3/uL (0-0.7); Absolute Immature Granulocytes 0.1 10^3/uL (0-0.05); Absolute Monocytes 1.1 10^3/uL (0.1-0.6); Absolute Neutrophils 10.2 10^3/uL (1.4-6.5); Hematocrit 23.2 % (37.0-47.0); Hemoglobin 7.5 g/dL (12.0-16.0); Mean Corp Hgb Conc. 32.3 g/dL (33.0-37.0); Mean Corpuscular Hgb 27.1 pg (27.0-31.0); Mean Corpuscular Volume 83.8 fL (81.0-99.0); Mean Platelet Volume 8.9 fL (7.4-10.4); Nucleated Red Blood Cells % 0 %; Platelet Count 319 10^3/uL (130-400); Red Blood Cell Count 2.77 10^6/uL (4.20-5.40); Red Cell Dist. Width 16.5 % (11.5-14.5); White Blood Cell Count 12.4 10^3/uL (4.8-10.8)
[2024-10-30 04:43] LABS: Blood Urea Nitrogen 19 mg/dl (7-17); Calcium 8.2 mg/dl (8.4-10.2); Carbon Dioxide 29 mmol/L (22-30); Chloride 100 mmol/L (98-107); Estimated Creatinine Clearance 58 ml/min; Glucose 68 mg/dl (70-99); Potassium 3.9 mmol/L (3.5-5.1); Sodium 131 mmol/L (135-145); eGFR > 60.00
--- NOTE | 2024-10-30 06:21 | PTCARENOTE ---
No bowel movements overnight. Pt. without complaints this AM. Rested calmly. AM labs sent
[2024-10-30] MEDS: PROTONIX 100 IV (07:18)
[2024-10-30] MEDS: CARAFATE SUSPENSION 1 GM PO ×4 (07:50→23:34)
[2024-10-30] MEDS: VITAMIN B-12 1000 MCG PO (07:50)
[2024-10-30] MEDS: ProAmatine 5 MG PO ×2 (07:50→09:48)
--- NOTE | 2024-10-30 08:20 | PTCARENOTE ---
Assumed care of pt from night patrol inspector RN. AAOx3. NSR on tele, HRs 60s-70s. Remains off levo, BPs 90s-100s/50s-60s. +3 general anasarca. On RA, SpO2 90-92%. Tolerating clear liquids. Protonix gtt remains at 8mg/hr. Hgb 7.5 this morning, goal is > 7. Pt
resting in bed, call robles in reach. Family member at bedside. Assessment documented.
[2024-10-30 12:00] LABS: Hematocrit 25.7 % (37.0-47.0); Hemoglobin 8.1 g/dL (12.0-16.0); Mean Corp Hgb Conc. 31.5 g/dL (33.0-37.0); Mean Corpuscular Hgb 26.7 pg (27.0-31.0); Mean Corpuscular Volume 84.8 fL (81.0-99.0); Mean Platelet Volume 8.6 fL (7.4-10.4); Platelet Count 337 10^3/uL (130-400); Red Blood Cell Count 3.03 10^6/uL (4.20-5.40); Red Cell Dist. Width 16.5 % (11.5-14.5); White Blood Cell Count 14.6 10^3/uL (4.8-10.8)
[2024-10-30] MEDS: ProAmatine 10 MG PO (12:26)
--- NOTE | 2024-10-30 12:42 | W.PN.INTV ---
Today's Communication / Plan
Recommendations
Change Protonix to 40mg IV BID
Monitor BPs on Midodrine 10mg TID
Consider downgrade to telemetry pending GI evaluation
PT/OT as tolerated.
CBC at 1200.
Assessment
-
Opal Harris is an 84-year-old female with a past medical history of osteoarthritis, anasarca secondary to hypoalbuminemia, recent hernia repair with mesh, recent fall 3 months ago with resultant rib injury (no fractures), and is not on any
anticoagulation, who presented to the emergency department this afternoon with 2 episodes of hematemesis and 1 episode of melena yesterday (10/28) resulting in a hemoglobin level of 5.2 and a hematocrit of 16.4 necessitating repletion with 3 units of
packed red blood cells in the emergency department (10/28). Patient was admitted to the ICU (10/28) for intensive management of acute upper GI bleed and pressor support of soft blood pressures.
Impression:
Acute Upper GI Bleed +/- Lower GI Bleed
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
Patient has been using Aleve 440mg BID for approximately 2 weeks, with questionable occasional use prior to this
Hemoglobin on arrival 5.2, hematocrit 16.4.
- Appropriate response to 3U pRBC, hemoglobin corrected to 9.1, slight drop to 8.4 yesterday.
- Patient's hemoglobin continues to exhibit slight drops from lab draw to lab draw q8h, 7.5 this AM.
EGD (10/28): Hemorrhagic, diffusely ulcerated gastropathy; suspicious for linitis plastica. Biopsies sent.
Patient started on Protonix for GI PPx
Acute Blood Loss Anemia in the Setting of Likely Anemia of Chronic Disease
Hb 5.2 on arrival; s/p 3U pRBC in the ED; see above
Vitamin B12 low; pending MMA and homocysteine level - possible Vit B12 deficiency in the setting of diffuse gastric ulceration and decreased intrinsic factor production/secretion
Hypotension
Patient given 25 g Albumin and started on Levophed; maximum dose of 4mcg/min, currently at 1mcg/min
Leukocytosis
WBC 39.2 on admission, currently 12.4 with steady daily improvements
Hyponatremia
Na 131, stable.
Subacute Anasarca 2/2 Hypoalbuminemia
3+ pitting edema of the lower extremities bilaterally up to the level of the thigh on admission
2+ pitting edema of the upper extremities bilaterally up to the level of the forearm on admission
Patient is s/p 25g IV albumin repletion x 3
Marked improvement in edema (10/30)
ECHO (10/29): LVEF 65-70% mild aortic regurgitation, mild-moderate tricuspid regurgitation, moderate-severe left atrial dilatation
Other Conditions Present Prior to Arrival
Subacute Thrombocytosis
Chronic Pain secondary to Osteoarthritis
Recent Hernia with Mesh Repair
Plan:
Neuro:
Pain Control; strict avoidance of NSAIDs; Tylenol 650 mg PO PRN for mild pain
Cardiovascular:
Continue Midodrine 10mg TID for BP support, but titrate as tolerated; continue to monitor BP with goal MAP of >65
Transfer to telemetry pending GI evaluation
Respiratory:
Stable. PT/OT.
GI:
Patient being followed by GI.
Follow up endoscopic biopsy results.
Inpatient vs. outpatient colonoscopy to be decided by GI.
Protonix for GI PPx.
Tolerating clears, advance as tolerated.
ID:
Continue to monitor WBC Count.
Heme/Onc:
SCD for DVT PPx
s/p 3U pRBC; transfuse for Hb < 7
-CBC at 1200 today.
Consider oncology consult pending biopsy results
Follow up MMA and Homocysteine level
Subjective Dataa
Subjective Data
Date of Service:
Date of Service: October 30, 2024
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
Subjective:
Patient seen and examined while resting comfortably in bed, with daughter at bedside. Patient states that she is feeling better today, per daughter, appears less fatigued, better color. Patient has been off of pressors since last night, has been on
standing order of TID midodrine since yesterday at 1300. Patient tolerating clear liquid diet without nausea, vomiting, diarrhea. Denies overt bleeding, notes 1 bowel movement, characterized as small, streaky, dark brown.
Review of Systems
General: Fever (n), Chills (n), Pain (n) and Bleeding (n)
HEENT: Dysphagia (n)
Cardiopulmonary: Dyspnea (n), Chest Pain (n) and Edema (improved)
GI: Abdominal Pain (n), Nausea (n), Vomiting (n), Diarrhea (n) and Constipation (n)
Neuro: Weakness (n)
Objective Data
Data Reviewed
Vital Signs / I&O / Oxygen:
Vital Signs
Temp Pulse Resp BP Pulse Ox
98.5 F 66 14 101/57 93
10/30/24 08:58 10/30/24 12:26 10/30/24 11:00 10/30/24 12:26 10/30/24 10:00
Intake and Output
10/29/24 10/30/24 10/31/24
06:59 06:59 06:59
Intake Total 960 / 985 1114.9 / 1124.9 300 / 300
Output Total 600 / 600 800 / 800
Balance 360 / 385 314.9 / 324.9 300 / 300
SaO2 93
Nasal Cannula flow liters per 1
minute
Physical Exam
General: Respiratory Distress (n), Comfortable, Pain (n), Fever (n) and T Max (99.2)
HEENT: Normocephalic and Anicteric
Cardiovascular: S1-S2, Regular Rhythm, Murmur (n), Rub (n) and Peripheral Edema (markedly improved from presentation)
Respiratory: Clear, Wheeze (n), Crackles (n), Rhonchi (n) and Non-Labored Respirations
GI: Soft, Non Distended, Non Tender and Normal Bowel Sounds
Neurology: Awake, Alert, Oriented and No Motor Deficits
Skin: Warm and Dry
Labs/Micro/Reports
Lab Data
10/30/24 11:38
10/30/24 03:30
Microbiology
10/29/24 00:23 Urine Urine Culture - Preliminary
Gram negative bacilli
Lactobacillus species
--- NOTE | 2024-10-30 13:48 | W.PN.HOSP.TC ---
Addendum entered and electronically signed by Ede Dang MD 10/30/24 14:07:
Patient with asymptomatic bacteriuria.
Lactobacillus. Increase squamous cell. DC antibiotics and observe
Original Note:
Today's Communication/Plan
-
Transfer out of ICU
Plan for CAT scan
Monitor blood pressure
Diet per GI
Assessment / Plan
Assessment / Plan
General: No Apparent Distress and Cachectic
HEENT: NormoCephalic, Moist mucous membranes and Atraumatic
Respiratory: Clear
Cardiac: S1/S2 and Regular Rhythm; No Murmur or Rub
GI: Soft, Non Tender, Non Distended and Normal Bowel Sounds; No Organomegaly
Rectal: Deferred by Provider
Musculoskeletal: No Clubbing, No Cyanosis, Edema, Left Upper Extremity, Edema, Right Upper Extremity, Edema, Left Lower Extremity and Edema, Right Lower Extremity-improvement lower extremity edema
Skin: No Rash
Neuro: Awake, Alert, Oriented, AO x 3, No Motor Deficits and Nonfocal/grossly intact
Psych: Calm
#Hematemesis suspected acute upper GI bleeding exacerbated due to NSAID usage
#Acute blood loss anemia
#Shock likely hemorrhagic due to volume loss
Status post 3 units of PRBC. Hemoglobin 8.1.
Wean off Levophed as tolerated
Status post PPI bolus and Protonix drip. Now on PPI BID and Carafate ordered
Avoid all NSAIDs. This was discussed with patient and granddaughter at bedside. Patient verbalized understanding
Status post emergent endoscopy with finding of Diffuse hemorrhagic ulcerated mucosa with intermittent nodularity with no bleeding and stigmata of recent bleeding was found in the entire examined stomach. Stomach was also narrowed and gave the
appearance of linitis plastica. Old blood seen in the fundus. No normal mucosa seen. s/p biopsies.
Colonoscopy per GI
Started on clears
Start on midodrine was increased to 10 mg. Off pressors.
Plan for CT chest abdomen pelvis
Diet per GI.
#Iron deficiency anemia
#Vitamin B12 deficiency
Start patient on IV iron while here
Start patient B12 supplementation and folic acid.
#Anasarca/hypoalbuminemia improving
Low albumin likely could be due to dietary deficiency
Check urine protein creatinine ratio with 200 mg. Will require further workup with nephrology as outpatient
Gentle IV fluids if needed
Creatinine normal.
Currently on albumin per public health social worker
Echocardiogram with normal ejection fraction. Valvular disease noted. Discussed with patient daughter.
#Severe leukocytosis possibly due to polymicrobial urinary tract infection andCould be reactive due to episode of GI bleeding
Start patient on IV antibiotic with ceftriaxone.
#Thrombocytosis
Monitor for now
Platelets improved.
#Mild hyponatremia likely second to hypovolemia
Status post IV fluid bolus
Trend sodium for now
If with persistent drop then check urine lites
Sodium is improving.
DVT prophylaxis SCDs in the setting of GI bleeding
Full code
Discussed with patient daughter at bedside in details
Anticipated Discharge: > 48 hours
Subjective/Interval History
-
Date of Service: October 30, 2024
Resting in bed
States of weakness
Tolerating liquids
States improvement in lower extremity edema
Objective Data
-
Labs:
Laboratory Results
10/30/24 10/30/24
03:30 11:38
WBC 12.4 H 14.6 H
Hgb 7.5 L 8.1 L
Hct 23.2 L 25.7 L
Plt Count 319 337
Sodium 131 L
Potassium 3.9
Chloride 100
Carbon Dioxide 29
BUN 19 H
Creatinine 0.4 L
Glucose 68 L
Calcium 8.2 L
Vital Signs:
Vital Signs
Temp Pulse Resp BP Pulse Ox
98.7 F 63 18 111/61 94
10/30/24 12:30 10/30/24 13:00 10/30/24 13:00 10/30/24 13:00 10/30/24 13:00
I&O
10/29/24 10/30/24 10/31/24
06:59 06:59 06:59
Intake Total 960 / 985 1114.9 / 1124.9 310 / 310
Output Total 600 / 600 800 / 800
Balance 360 / 385 314.9 / 324.9 310 / 310
Data Reviewed
-
Total Time Spent with Patient (in minutes): 58
[2024-10-30] MEDS: FERRLECIT 110 MG IV (14:04)
[2024-10-30] MEDS: OMNIPAQUE 50 ML PO (14:40)
--- NOTE | 2024-10-30 15:15 | CM ---
CM following re: discharge planning.
Reviewed pt's chart, met with pt. Per Rounds meeting, pt is downgraded from ICU level of are, continue supportive care.
Pt lives with daughter 2[facility] [place], ambulates with a walker at baseline, .
PT and OT will evaluate the pt to determine a level of care at discharge.
D/C plan: uncertain at this time, most likely home home VN services. PT and OT to confirm
CM will follow with discharge plan updates as hospitalization progresses
--- NOTE | 2024-10-30 16:15 | PTCARENOTE ---
Repeat hgb 8.1, pt downgraded to tele. Protonix gtt discontinued, switched to IV Protonix 40mg BID. Abx discontinued. CT abd/Pelvis with oral contrast ordered for suspected GI malignancy. Per family request, they would like to be present with
patient before results of biopsies disclosed to patient. Hospitalist informed. Will hold off on Oncology consult until tomorrow. Assessment unchanged. Pt in bed, call robles in reach.
[2024-10-30] MEDS: ZOFRAN 4 MG IV (16:42)
--- NOTE | 2024-10-30 17:12 | PTCARENOTE ---
Report called to [address] Dayday [address] Abd/Pelvis. Will be transferred to room 436-[address] scan.
--- NOTE | 2024-10-30 17:30 | PTCARENOTE ---
Pt admitted to 4W from ICU, pulled over from stretcher to bed. AAOx3, no acute complaints at this time. Patient and daughter oriented to room and plan of care.
[2024-10-30] MEDS: ProAmatine PO (18:31)
[2024-10-30] MEDS: NSS (PRESERVATIVE FREE) 10 ML IV (20:21)
[2024-10-30] MEDS: PROTONIX IV 40 MG IV (20:22)
[2024-10-30] MEDS: FLUSH (NSS) 1 FLUSH IV (20:22)
[2024-10-30 23:39] LABS: Homocysteine 12 umol/L (0-15)
[2024-10-31] VITALS (10 sets, daily range): BP systolic 99–121; BP diastolic 50–63; PULSE 59–72; O2SAT 98; BMI 25.9
[2024-10-31 07:59] LABS: % Basophils 0.3 % (0-2); % Eosinophils 0.3 % (0-6); % Lymphocytes 7.2 % (20.5-51.1); % Monocytes 6.2 % (1.7-9.3); Absolute Basophils 0.1 10^3/uL (0-0.2); Absolute Eosinophils 0.1 10^3/uL (0-0.7); Absolute Immature Granulocytes 0.2 10^3/uL (0-0.05); Absolute Lymphocytes 1.2 10^3/uL (1.2-3.4); Absolute Neutrophils 13.9 10^3/uL (1.4-6.5); Hematocrit 26.7 % (37.0-47.0); Hemoglobin 8.6 g/dL (12.0-16.0); Mean Corp Hgb Conc. 32.2 g/dL (33.0-37.0); Mean Corpuscular Hgb 27.7 pg (27.0-31.0); Mean Corpuscular Volume 85.9 fL (81.0-99.0); Mean Platelet Volume 8.8 fL (7.4-10.4); Nucleated Red Blood Cells % 0 %; Platelet Count 383 10^3/uL (130-400); Red Blood Cell Count 3.11 10^6/uL (4.20-5.40); White Blood Cell Count 16.3 10^3/uL (4.8-10.8)
[2024-10-31 08:33] LABS: Blood Urea Nitrogen 16 mg/dl (7-17); Calcium 8.3 mg/dl (8.4-10.2); Carbon Dioxide 28 mmol/L (22-30); Chloride 97 mmol/L (98-107); Estimated Creatinine Clearance 58 ml/min; Glucose 65 mg/dl (70-99); Magnesium 1.8 mg/dl (1.6-2.3); Phosphorus 3.2 mg/dl (2.5-4.5); Potassium 3.7 mmol/L (3.5-5.1); Sodium 129 mmol/L (135-145); eGFR > 60.00
[2024-10-31] MEDS: NSS (PRESERVATIVE FREE) 10 ML IV ×2 (10:11→21:16)
[2024-10-31] MEDS: PROTONIX IV 40 MG IV ×2 (10:12→21:16)
[2024-10-31] MEDS: ProAmatine PO ×4 (10:13→17:52)
[2024-10-31] MEDS: CARAFATE SUSPENSION 1 GM PO ×3 (10:13→21:13)
[2024-10-31] MEDS: VITAMIN B-12 1000 MCG PO (10:16)
[2024-10-31] MEDS: FOLVITE 1 MG PO (10:16)
--- NOTE | 2024-10-31 10:55 | W.PN.HOSP.TC ---
Today's Communication/Plan
-
iRad for thoracentesis
Oncology evaluation
Diet per GI
Monitor blood pressure
Trend hemoglobin
Assessment / Plan
Assessment / Plan
General: No Apparent Distress and Cachectic
HEENT: NormoCephalic, Moist mucous membranes and Atraumatic
Respiratory: Clear
Cardiac: S1/S2 and Regular Rhythm; No Murmur or Rub
GI: Soft, Non Tender, Non Distended and Normal Bowel Sounds; No Organomegaly
Rectal: Deferred by Provider
Musculoskeletal: No Clubbing, No Cyanosis, Edema, Left Upper Extremity, Edema, Right Upper Extremity, Edema, Left Lower Extremity and Edema, Right Lower Extremity-improvement lower extremity edema
Skin: No Rash
Neuro: Awake, Alert, Oriented, AO x 3, No Motor Deficits and Nonfocal/grossly intact
Psych: Calm
#Hematemesis suspected acute upper GI bleeding exacerbated due to NSAID usage
#Acute blood loss anemia
#Shock likely hemorrhagic due to volume loss
#Gastric B-cell lymphoma
Status post 3 units of PRBC. Hemoglobin 8.1.
Wean off Levophed as tolerated
Status post PPI bolus and Protonix drip. Now on PPI BID and Carafate ordered
Avoid all NSAIDs. This was discussed with patient and granddaughter at bedside. Patient verbalized understanding
Status post emergent endoscopy with finding of Diffuse hemorrhagic ulcerated mucosa with intermittent nodularity with no bleeding and stigmata of recent bleeding was found in the entire examined stomach. Stomach was also narrowed and gave the
appearance of linitis plastica. Old blood seen in the fundus. No normal mucosa seen. s/p biopsies.
Colonoscopy per GI
Started on clears
Start on midodrine was increased to 10 mg. Off pressors.
Blood pressure is improving.
Diet per GI.
#Gastric B-cell lymphoma
Final biopsy results pending
Preliminary- Stomach biopsy - High grade B-cell lymphoma. Additional immuno- and molecular studies pending.
CT chest abdomen pelvis done.
Unclear if bx sent for h.pylori.
Patient informed of the results
Oncology evaluation
# Bilateral pleural effusion
iRad for thoracentesis. Fluid cytology also ordered.
#Iron deficiency anemia
#Vitamin B12 deficiency
Start patient on IV iron while here
Start patient B12 supplementation and folic acid.
#Anasarca/hypoalbuminemia improving
Low albumin likely could be due to dietary deficiency
Check urine protein creatinine ratio with 200 mg. Will require further workup with nephrology as outpatient
Gentle IV fluids if needed
Creatinine normal.
Currently on albumin per internal specialist
Echocardiogram with normal ejection fraction. Valvular disease noted. Discussed with patient daughter.
#Severe leukocytosis possibly Could be reactive due to episode of GI bleeding versus due to malignancy
Patient with asymptomatic bacteriuria.
#Thrombocytosis
Monitor for now
Platelets improved.
#Mild hyponatremia likely second to hypovolemia
Status post IV fluid bolus
Trend sodium for now
If with persistent drop then check urine lites
Sodium is improving.
DVT prophylaxis SCDs in the setting of GI bleeding
Full code
Discussed with patient daughter and granddaughter at bedside in details
Anticipated Discharge: > 48 hours
Subjective/Interval History
-
Date of Service: October 31, 2024
Patient was informed of the stomach biopsy result positive for lymphoma. Patient daughter and granddaughter present at bedside
Remains on oxygen
Remains on liquid diet and tolerating it
Objective Data
-
Labs:
Laboratory Results
10/31/24
07:08
WBC 16.3 H
Hgb 8.6 L
Hct 26.7 L
Plt Count 383
Sodium 129 L
Potassium 3.7
Chloride 97 L
Carbon Dioxide 28
BUN 16
Creatinine 0.5 L
Glucose 65 L
Calcium 8.3 L
Vital Signs:
Vital Signs
Temp Pulse Resp BP Pulse Ox
98.4 F 69 16 135/71 98
10/31/24 07:52 10/31/24 10:13 10/31/24 07:52 10/31/24 10:13 10/31/24 07:52
I&O
10/30/24 10/31/24 11/01/24
06:59 06:59 06:59
Intake Total 1114.9 / 1124.9 1879
Output Total 800 / 800
Balance 314.9 / 324.9 1879
Data Reviewed
-
Total Time Spent with Patient (in minutes): 55
--- NOTE | 2024-10-31 13:29 | W.PN.GI.CBS2 ---
Today's Communication / Plan
-
oncology eval
Assessment / Plan
-
Pt is an 84 yo with hx sudhir, hysterectomy, ORIF femur, arthritis, hernia repair with mesh for incarcerated hernia with SB resection presents to ER today with onset of nausea with vomiting red blood and clots. In review with patient and family
noted with fall and rib fractures 3 months ago with Tylenol use then recent onset of diffuse swelling. She saw PCP in September with hbg 11.1 with some elevation of platelets. She began taking NSAID- Aleve 2 tabs BID for pain with swelling and noted
onset of nausea 10/27 then vomiting red blood 2 episode with second episode about 50ml of blood and presents to ER for evaluation. She was also noted with dark stool at home on day of admission. On admission she is noted hypotension with labs
noted WBC 39.2, hbg 5.2 with platelets 435, Na 130, creat 0.4, albumin 1.9. Family denies hx EGD or colonoscopy in past.
-onset of nausea/vomiting with hematemesis
-recent NSAID use
- anemia with drop in hbg 11.1 in September to 5.2 on admission
-new onset anasarca/hypoalbuminemia
-leukocytosis
-thrombocytosis
-hyponatremia
-hx fall with rib fx 3 months ago
other med problems:
-sudhir
-hysterectomy
-ORIF femur
-arthritis
-hernia repair with mesh with SB resection
EGD 10/28
Findings:
The examined esophagus was normal.
Diffuse hemorrhagic ulcerated mucosa with intermittent nodularity with
no bleeding and stigmata of recent bleeding was found in the entire
examined stomach. Stomach was also narrowed and gave the appearance of
linitis plastica. Old blood seen in the fundus. No normal mucosa seen.
Biopsies were taken with a cold forceps for histology.
The examined duodenum was normal. Biopsies for histology were taken with
a cold forceps for evaluation of celiac disease.
prelim path results -high-grade B-cell lymphoma. Awaiting additional immuno and molecular studies
PLAN:
Prelim path results discussed with patient/patient's daughter/medical team
Will recommend oncology eval for further evaluation/management
Final path results-official report pending
Patient is tolerating liquid diet. She would like to remain on that when I asked her this morning. Okay to advance to low-fat low fiber diet as tolerated
No further recommendation. Will sign off. Please call us back if any questions
Total Time Spent with Patient (in minutes): 35
Subjective
Subjective
Date of Service: October 31, 2024
Denies any GI bleeding. Tolerating liquid diet
Objective
Data Reviewed
Laboratory Data:
Laboratory Results
10/31/24 07:08
10/31/24 07:08
Laboratory Results
PT 15.1 Sec (11.4-14.6) H 10/28/24 10:11
INR 1.14 10/28/24 10:11
APTT 29.1 Sec (23.4-35.0) 10/28/24 10:11
Phosphorus 3.2 mg/dl (2.5-4.5) 10/31/24 07:08
Magnesium 1.8 mg/dl (1.6-2.3) 10/31/24 07:08
Total Bilirubin 0.4 mg/dl (0.2-1.3) 10/28/24 10:11
AST 21 U/L (14-36) 10/28/24 10:11
ALT 12 U/L (0-35) 10/28/24 10:11
Alkaline Phosphatase 71 U/L (38-126) 10/28/24 10:11
Lipase 129 U/L (23-300) 10/28/24 10:11
Vital Signs and I&O:
Vital Signs
Temp Pulse Resp BP Pulse Ox
98.3 F 66 16 110/60 97
10/31/24 11:20 10/31/24 11:20 10/31/24 11:20 10/31/24 11:20 10/31/24 11:20
I&O
10/30/24 10/31/24 11/01/24
06:59 06:59 06:59
Intake Total 1114.9 / 1124.9 1879
Output Total 800 / 800
Balance 314.9 / 324.9 1879
Physical Exam
Physical Exam
GI: Soft, Non Distended and Non Tender
[2024-10-31] MEDS: CARAFATE SUSPENSION PO (13:54)
[2024-10-31] MEDS: FERRLECIT 110 MG IV (15:10)
--- NOTE | 2024-10-31 19:15 | PTCARENOTE ---
Assumed care of previous nurse. Pt denies pain. pt with family at bedside. oob to chair today, tolerated well. Call robles is within reach, pt rings cheryle. will cont to monitor.
--- NOTE | 2024-10-31 20:00 | CON.ONC ---
Impression
Impression
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
B12 deficiency
Iron deficiency
Multi-factorial anemia: GI blood loss, substrate deficiency
Anasarca
Plan
Plan
Await final path.
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
Start IV iron to optimize Hgb as she will need to start chemo sooner than later.
Outpt PET.
Thank you for consult. Will follow along with you.
Patient History
History of Present Illness
Pt is an 84 yo with hx sudhir, hysterectomy, ORIF femur, arthritis, hernia repair with mesh for incarcerated hernia with SB resection. Presented to ED presents to ER 10/28 with onset of nausea with vomiting red blood and clots. In review with
patient and family noted with fall and rib fractures 3 months ago with Tylenol use then recent onset of diffuse swelling. She saw PCP in September with hbg 11.1 with some elevation of platelets. She began taking NSAID- Aleve 2 tabs BID for pain with
swelling and noted onset of nausea 10/27 then vomiting red blood 2 episode with second episode about 50 ml of blood and presents to ER for evaluation. She was also noted with dark stool at home on day of admission. Hypotensive in ED. Workup of
anemia showed iron and B12 deficiency. Since admission, she underwent EGD 10/28/24 noting diffuse hemorrhagic ulcerated mucosa with intermittent nodularity. Stomach had linitis plastica appearance. Prelim path diffuse large cell lymphoma. CT C/A/P:
moderate bilateral pleural effusions. Gastric outlet obstruction. No adenopathy or splenomegaly.
Past-Medical/Surgical History
Past Medical History
Osteoarthritis
Past Surgical History
Cholecystectomy
Gynecological (hysterectomy)
Orthopedic (LLE traumatic injury with ORIF femur )
Open umbilical hernia with mesh and SB resection
Social History
Tobacco: Non-Smoker
Alcohol: None
Drug: None
Living: With Family
Employment: Retired
Family History
Family History: Other (no family hx GI issues, colon CA etc. )
Patient Medication
�Medication �Instructions �Recorded �Confirmed �Last Taken �Type
naproxen sodium 220 mg tablet 440 mg PO BID Pain 11/21/18 10/28/24 10/27/24 History
(Aleve)
Active Medications
Generic Name Dose Route Start Last Admin
Trade Name Freq PRN Reason Stop Dose Admin
Cyanocobalamin 1,000 mcg 10/29/24 08:00 10/31/24 10:16
Cyanocobalamin 1,000 Mcg Tablet PO 11/26/24 07:59 1,000 mcg
DAILY CHA Administration
Folic Acid 1 mg 10/31/24 08:00 10/31/24 10:16
Folic Acid 1 Mg Tablet PO 11/28/24 07:59 1 mg
DAILY CHA Administration
Ferric Sodium Gluconate 110 mls @ 110 mls/hr 10/29/24 14:00 10/31/24 15:10
Complex 125 mg/ Sodium IV 11/02/24 14:59 110 mls
Chloride DAILY@1400 CHA Administration
Midodrine 10 mg 10/30/24 13:00 10/31/24 17:52
Midodrine 5 Mg Tablet PO 11/27/24 12:59 Not Given
TID@0800,1300,1800 CHA
Ondansetron HCl 4 mg 10/30/24 16:35 10/30/24 16:42
Ondansetron 4 Mg/2 Ml Vial IV 11/27/24 16:34 4 mg
Q6HPRN PRN Administration
NAUSEA/VOMITING
Pantoprazole Sodium 40 mg 10/30/24 20:00 10/31/24 10:12
Pantoprazole Sodium 40 Mg/10 Ml Vial IV 11/27/24 19:59 40 mg
BID CHA Administration
Sodium Chloride 0 flush 10/28/24 17:00 10/30/24 20:22
Sodium Chloride 0.9% (Flush) Syringe IV 11/25/24 16:59 1 flush
PER PROTOCOL CHA Administration
Sodium Chloride 10 ml 10/30/24 20:00 10/31/24 10:11
Sodium Chloride 0.9% (Preservative Free) 10 Ml Vial IV 11/27/24 19:59 10 ml
BID CHA Administration
Sucralfate 1 gm 10/29/24 16:30 10/31/24 17:52
Sucralfate (Carafate) 1 Gm/10 Ml Cup PO 11/26/24 16:29 1 gm
ACHS CHA Administration
Review of Systems
-
History Source: Patient, Family and Records
Constitutional: Reports No Symptoms; Denies Fever, Weight Loss or No Appetite
EENT: Reports No Symptoms
Respiratory: Reports No Symptoms
Cardiac: Reports No Symptoms
GI: Reports Hemetemesis and Bloated
: Reports No Symptoms
Musculoskeletal: Reports No Symptoms
Neuro: Reports No Symptoms
Endocrine: Reports No Symptoms
Hematologic/Lymphatic: Reports No Symptoms
Allergy / Immunology: Reports No Symptoms
Psych: Reports No Symptoms
Physical Exam
-
General: Well Developed, Well Nourished and Other (Appears younger than stated age)
HEENT: Moist Mucous Membranes; Negative Jaundice
Cardiology: Normal Sinus Rhythm, S1 and S2
Pulmonary: Other (breath sounds decreased at b/l bases)
GI: Soft, Distended and Other (non-tender)
Musculoskeletal: No Clubbing, No Cyanosis and No Edema
Extremities: Negative Phlebitic Signs
Neurology: Non Focal
Skin: Warm and Dry
Hematologic / Lymphatic: No Lymphadenopathy
Psych: Calm and Intact Judgement/Insight
Labs
Lab Results
WBC 16.3 10^3/uL (4.8-10.8) H 10/31/24 07:08
RBC 3.11 10^6/uL (4.20-5.40) L 10/31/24 07:08
Hgb 8.6 g/dL (12.0-16.0) L 10/31/24 07:08
Hct 26.7 % (37.0-47.0) L 10/31/24 07:08
MCV 85.9 fL (81.0-99.0) 10/31/24 07:08
MCH 27.7 pg (27.0-31.0) 10/31/24 07:08
MCHC 32.2 g/dL (33.0-37.0) L 10/31/24 07:08
RDW 17.0 % (11.5-14.5) H 10/31/24 07:08
Plt Count 383 10^3/uL (130-400) 10/31/24 07:08
MPV 8.8 fL (7.4-10.4) 10/31/24 07:08
Abs Immat Gran (auto) 0.2 10^3/uL (0-0.05) H 10/31/24 07:08
Absolute Neuts (auto) 13.9 10^3/uL (1.4-6.5) H 10/31/24 07:08
Absolute Lymphs (auto) 1.2 10^3/uL (1.2-3.4) 10/31/24 07:08
Absolute Monos (auto) 1.0 10^3/uL (0.1-0.6) H 10/31/24 07:08
Absolute Eos (auto) 0.1 10^3/uL (0-0.7) 10/31/24 07:08
Absolute Basos (auto) 0.1 10^3/uL (0-0.2) 10/31/24 07:08
Immature Gran % 1.0 % (0-0.5) H 10/31/24 07:08
Neutrophils % 85.0 % (42.2-75.2) H 10/31/24 07:08
Lymphocytes % 7.2 % (20.5-51.1) L 10/31/24 07:08
Monocytes % 6.2 % (1.7-9.3) 10/31/24 07:08
Eosinophils % 0.3 % (0-6) 10/31/24 07:08
Basophils % 0.3 % (0-2) 10/31/24 07:08
Creatinine 0.5 mg/dL (0.6-1.0) L 10/31/24 07:08
Vital Signs
Vital Signs
Temp Pulse Resp BP Pulse Ox
98.2 F 60 16 127/61 98
10/31/24 15:00 10/31/24 17:52 10/31/24 15:00 10/31/24 17:52 10/31/24 15:00
[2024-10-31 20:20] LABS: Methylmalonic Acid 0.39 umol/L (0.00-0.40)
[2024-10-31] MEDS: FLUSH (NSS) 1 FLUSH IV (21:17)
[2024-11-01 03:07] VITALS: BP 108/61
[2024-11-01 07:00] VITALS: BP 110/62
[2024-11-01 08:02] LABS: % Basophils 0.7 % (0-2); % Eosinophils 0.6 % (0-6); % Immature Granulocytes 1.1 % (0-0.5); % Lymphocytes 6.8 % (20.5-51.1); % Monocytes 7.4 % (1.7-9.3); % Neutrophils 83.4 % (42.2-75.2); Absolute Basophils 0.1 10^3/uL (0-0.2); Absolute Eosinophils 0.1 10^3/uL (0-0.7); Absolute Immature Granulocytes 0.1 10^3/uL (0-0.05); Absolute Lymphocytes 0.8 10^3/uL (1.2-3.4); Absolute Monocytes 0.9 10^3/uL (0.1-0.6); Absolute Neutrophils 9.7 10^3/uL (1.4-6.5); Hemoglobin 8.7 g/dL (12.0-16.0); Mean Corp Hgb Conc. 32.2 g/dL (33.0-37.0); Mean Corpuscular Hgb 27.5 pg (27.0-31.0); Mean Corpuscular Volume 85.4 fL (81.0-99.0); Mean Platelet Volume 8.8 fL (7.4-10.4); Nucleated Red Blood Cells % 0 %; Platelet Count 358 10^3/uL (130-400); Red Blood Cell Count 3.16 10^6/uL (4.20-5.40); Red Cell Dist. Width 17.2 % (11.5-14.5); White Blood Cell Count 11.7 10^3/uL (4.8-10.8)
[2024-11-01 08:32] LABS: Blood Urea Nitrogen 12 mg/dl (7-17); Calcium 8.3 mg/dl (8.4-10.2); Carbon Dioxide 30 mmol/L (22-30); Chloride 99 mmol/L (98-107); Estimated Creatinine Clearance 58 ml/min; Glucose 73 mg/dl (70-99); LDH 193 U/L (120-246); Potassium 3.7 mmol/L (3.5-5.1); Sodium 131 mmol/L (135-145); Uric Acid 2.1 mg/dl (2.5-6.2); eGFR > 60.00
[2024-11-01] MEDS: CARAFATE SUSPENSION 1 GM PO ×4 (08:43→21:02)
[2024-11-01] MEDS: ProAmatine PO ×3 (08:44→18:05)
[2024-11-01] MEDS: FOLVITE 1 MG PO (08:45)
[2024-11-01] MEDS: VITAMIN B-12 1000 MCG PO (08:45)
[2024-11-01] MEDS: PROTONIX IV 40 MG IV ×2 (08:48→21:02)
[2024-11-01] MEDS: NSS (PRESERVATIVE FREE) 10 ML IV ×2 (08:48→21:01)
[2024-11-01 11:00] VITALS: BP 111/55
--- NOTE | 2024-11-01 11:31 | W.PN.HOSP.TC ---
Today's Communication/Plan
-
Start weaning down oxygen as tolerated
Interventional radiology for thoracentesis
Trend hemoglobin
Continue PPI
Monitor for diet tolerance. Diet advanced.
Assessment / Plan
Assessment / Plan
General: No Apparent Distress and Cachectic
HEENT: NormoCephalic, Moist mucous membranes and Atraumatic
Respiratory: Clear
Cardiac: S1/S2 and Regular Rhythm; No Murmur or Rub
GI: Soft, Non Tender, Non Distended and Normal Bowel Sounds; No Organomegaly
Rectal: Deferred by Provider
Musculoskeletal: No Clubbing, No Cyanosis, Edema, Left Upper Extremity, Edema, Right Upper Extremity, Edema, Left Lower Extremity and Edema, Right Lower Extremity-improvement lower extremity edema
Skin: No Rash
Neuro: Awake, Alert, Oriented, AO x 3, No Motor Deficits and Nonfocal/grossly intact
Psych: Calm
#Hematemesis suspected acute upper GI bleeding exacerbated due to NSAID usage
#Acute blood loss anemia
#Shock likely hemorrhagic due to volume loss
#Gastric B-cell lymphoma
Status post 3 units of PRBC. Hemoglobin 8.7.
Wean off Levophed as tolerated
Status post PPI bolus and Protonix drip. Now on PPI BID and Carafate ordered
Avoid all NSAIDs. This was discussed with patient and granddaughter at bedside. Patient verbalized understanding
Status post emergent endoscopy with finding of Diffuse hemorrhagic ulcerated mucosa with intermittent nodularity with no bleeding and stigmata of recent bleeding was found in the entire examined stomach. Stomach was also narrowed and gave the
appearance of linitis plastica. Old blood seen in the fundus. No normal mucosa seen. s/p biopsies.
Colonoscopy per GI
Diet advanced.
Start on midodrine was increased to 10 mg. Off pressors.
Blood pressure is improving.
Diet per GI.
#Gastric B-cell lymphoma
Final biopsy results pending
Preliminary- Stomach biopsy - High grade B-cell lymphoma. Additional immuno- and molecular studies pending.
CT chest abdomen pelvis done.
Unclear if bx sent for h.pylori.
Patient informed of the results
Further blood work ordered
Oncology evaluation
# Bilateral pleural effusion
[facility] for thoracentesis. Fluid cytology also ordered.
#Iron deficiency anemia
#Vitamin B12 deficiency
Start patient on IV iron while here can switch to p.o. on discharge
Start patient B12 supplementation and folic acid.
#Anasarca/hypoalbuminemia improving
Low albumin likely could be due to dietary deficiency
Check urine protein creatinine ratio with 200 mg. Will require further workup with nephrology as outpatient
Gentle IV fluids if needed
Creatinine normal.
Currently on albumin per produce shipper
Echocardiogram with normal ejection fraction. Valvular disease noted. Discussed with patient daughter.
#Severe leukocytosis possibly Could be reactive due to episode of GI bleeding versus due to malignancy
Patient with asymptomatic bacteriuria. White count continues to trend down.
#Thrombocytosis
Monitor for now
Platelets improved.
#Mild hyponatremia likely second to hypovolemia
Status post IV fluid bolus
Trend sodium for now
If with persistent drop then check urine lites
Sodium is improving.
DVT prophylaxis SCDs in the setting of GI bleeding
Full code
PT/OT Home PT versus SNF. Family would like to take patient home.
Discussed with patient granddaughter at bedside in details
Anticipated Discharge: 24 - 48 hours
Subjective/Interval History
-
Date of Service: November 01, 2024
remains on oxygen
Objective Data
-
Labs:
Laboratory Results
11/01/24
07:25
WBC 11.7 H
Hgb 8.7 L
Hct 27.0 L
Plt Count 358
Sodium 131 L
Potassium 3.7
Chloride 99
Carbon Dioxide 30
BUN 12
Creatinine 0.5 L
Glucose 73
Calcium 8.3 L
Vital Signs:
Vital Signs
Temp Pulse Resp BP Pulse Ox
97.5 F 64 16 111/55 98
11/01/24 11:00 11/01/24 11:00 11/01/24 11:00 11/01/24 11:00 11/01/24 11:00
I&O
10/31/24 11/01/24 11/02/24
06:59 06:59 06:59
Intake Total 1879 690 / 690
Balance 1879 690 / 690
Data Reviewed
-
Total Time Spent with Patient (in minutes): 55
--- NOTE | 2024-11-01 12:23 | PTCARENOTE ---
Assumed care of pt from previous nurse. Pt denies pain. Pt weaned to 1 unit of 02, sating 98%. Pt call robles is within reach, pt rings cheryle. will cont to monitor.
[2024-11-01 15:00] VITALS: BP 102/58
[2024-11-01] MEDS: FERRLECIT 110 MG IV (15:33)
[2024-11-01 19:47] VITALS: BP 131/65
[2024-11-01 23:40] VITALS: BP 106/59
[2024-11-02] VITALS (9 sets, daily range): BP systolic 69–131; BP diastolic 57–70
[2024-11-02 08:12] LABS: Blood Urea Nitrogen 12 mg/dl (7-17); Calcium 8.1 mg/dl (8.4-10.2); Carbon Dioxide 29 mmol/L (22-30); Chloride 98 mmol/L (98-107); Estimated Creatinine Clearance 58 ml/min; Glucose 75 mg/dl (70-99); Potassium 3.7 mmol/L (3.5-5.1); Sodium 132 mmol/L (135-145); eGFR > 60.00
[2024-11-02] MEDS: FOLVITE 1 MG PO (08:27)
[2024-11-02] MEDS: VITAMIN B-12 1000 MCG PO (08:27)
[2024-11-02] MEDS: ProAmatine PO ×3 (08:28→16:07)
[2024-11-02] MEDS: CARAFATE SUSPENSION 1 GM PO ×4 (08:28→22:24)
[2024-11-02] MEDS: PROTONIX IV 40 MG IV ×2 (08:29→20:29)
[2024-11-02] MEDS: NSS (PRESERVATIVE FREE) 10 ML IV ×2 (08:29→20:30)
--- NOTE | 2024-11-02 11:44 | W.PN.HOSP.TC ---
Today's Communication/Plan
-
Monitor off oxygen
Trend hemoglobin
monitor for diet tolerance
Start disposition planning
Assessment / Plan
Assessment / Plan
General: No Apparent Distress and Cachectic
HEENT: NormoCephalic, Moist mucous membranes and Atraumatic
Respiratory: dec bs L>R
Cardiac: S1/S2 and Regular Rhythm; No Murmur or Rub
GI: Soft, Non Tender, Non Distended and Normal Bowel Sounds; No Organomegaly
Rectal: Deferred by Provider
Musculoskeletal: No Clubbing, No Cyanosis, Edema, Left Upper Extremity, Edema, Right Upper Extremity, Edema, Left Lower Extremity and Edema, Right Lower Extremity-improvement lower extremity edema
Skin: No Rash
Neuro: Awake, Alert, Oriented, AO x 3, No Motor Deficits and Nonfocal/grossly intact
Psych: Calm
#Hematemesis suspected acute upper GI bleeding exacerbated due to NSAID usage
#Acute blood loss anemia
#Shock likely hemorrhagic due to volume loss
#Gastric B-cell lymphoma
Status post 3 units of PRBC. Hemoglobin 8.7.
Wean off Levophed as tolerated
Status post PPI bolus and Protonix drip. Now on PPI BID and Carafate ordered
Avoid all NSAIDs. This was discussed with patient and granddaughter at bedside. Patient verbalized understanding
Status post emergent endoscopy with finding of Diffuse hemorrhagic ulcerated mucosa with intermittent nodularity with no bleeding and stigmata of recent bleeding was found in the entire examined stomach. Stomach was also narrowed and gave the
appearance of linitis plastica. Old blood seen in the fundus. No normal mucosa seen. s/p biopsies.
Colonoscopy per GI
Diet advanced.
Start on midodrine was increased to 10 mg. Off pressors.
Blood pressure is improving.
Diet per GI.
#Gastric B-cell lymphoma
Final biopsy results pending
Preliminary- Stomach biopsy - High grade B-cell lymphoma. Additional immuno- and molecular studies pending.
CT chest abdomen pelvis done.
Unclear if bx sent for h.pylori.
Patient informed of the results
Further blood work ordered
hep panel ordered per onc-pending
Oncology evaluation
# Bilateral pleural effusion
Status post thoracentesis with findings 500cc removed on the left side.
Discussed with interventional radiology and not enough fluid for right-sided thoracentesis.
#Iron deficiency anemia
#Vitamin B12 deficiency
Start patient on IV iron while here can switch to p.o. on discharge
Start patient B12 supplementation and folic acid.
#Anasarca/hypoalbuminemia improving
Low albumin likely could be due to dietary deficiency
Check urine protein creatinine ratio with 200 mg. Will require further workup with nephrology as outpatient
Gentle IV fluids if needed
Creatinine normal.
Currently on albumin per autocad detailer
Echocardiogram with normal ejection fraction. Valvular disease noted. Discussed with patient daughter.
#Severe leukocytosis possibly Could be reactive due to episode of GI bleeding versus due to malignancy
Patient with asymptomatic bacteriuria. White count continues to trend down.
#Thrombocytosis
Monitor for now
Platelets improved.
#Mild hyponatremia likely second to hypovolemia
Status post IV fluid bolus
Trend sodium for now
If with persistent drop then check urine lites
Sodium is improving.
DVT prophylaxis SCDs in the setting of GI bleeding
Full code
PT/OT Home PT versus SNF. Family would like to take patient home.
Discussed with patient daughter at bedside in details
Anticipated Discharge: Within 24 hours
Subjective/Interval History
-
Date of Service: November 02, 2024
didnt sleep much overnight
feeling tired
Objective Data
-
Labs:
Laboratory Results
11/02/24
05:59
Sodium 132 L
Potassium 3.7
Chloride 98
Carbon Dioxide 29
BUN 12
Creatinine 0.4 L
Glucose 75
Calcium 8.1 L
Vital Signs:
Vital Signs
Temp Pulse Resp BP Pulse Ox
97.7 F 69 15 109/58 95
11/02/24 11:00 11/02/24 11:26 11/02/24 11:26 11/02/24 11:26 11/02/24 11:26
I&O
11/01/24 11/02/24 11/03/24
06:59 06:59 06:59
Intake Total 690 / 690 900 / 900
Balance 690 / 690 900 / 900
Data Reviewed
-
Total Time Spent with Patient (in minutes): 55
[2024-11-02 12:09] LABS: Body Fluid pH 7.49
[2024-11-02] MEDS: FERRLECIT 110 MG IV (12:11)
[2024-11-02 12:28] LABS: Body Fluid Glucose 98 mg/dl; Body Fluid LDH 101 U/L; Body Fluid Protein < 2.0 g/dl
[2024-11-02 14:07] LABS: Body Fluid Mononuclear 74.2 %; Body Fluid Polymorphonuclear 25.8 %; Body Fluid Second Tech EM; Body Fluid WBC 899 /CUMM
[2024-11-02 18:34] LABS: Hepatitis B Surface Antigen Negative (Negative)
[2024-11-02 18:53] LABS: Hepatitis B Core Ab, Total Negative (Negative); Hepatitis B Surface Antibody Negative; Hepatitis C Antibody Negative (Negative)
--- NOTE | 2024-11-02 19:34 | W.PN.ONC2 ---
Addendum entered and electronically signed by Shanika Monroy MD 11/02/24 20:03:
Need H.pylori testing and probably empiric treatment, to decrease risk of gastric hemorrhage and perforation.
If disease is localized to stomach on PET, preventative regimen (H. pylori treatment, omit prednisone) can be used to decrease risk of gastric rupture.
GI signed off but need input from them about H. pylori status and empiric treatment.
Original Note:
Today's Communication / Plan
-
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
Impression
Impression
Infiltrative neoplasm lining of stomach, prelim path large cell lymphoma
B12 deficiency
Iron deficiency
Multi-factorial anemia: GI blood loss, substrate deficiency
Anasarca
Plan
Plan
Discussed probable gastric large cell diagnosis today.
Discussed usual management which would be chemotherapy vs. surgery.
Suspect pt would tolerate R-mini-CHOP. She and family are amenable.
Plan:
- outpt PET
- outpt port placement
- Cardio-Oncology eval
Discussed that there is a risk of gastric rupture when gastric diffuse large cell is treated with chemotherapy. Pt and family voice understanding.
Reviewed ECHO showing normal LVEF, dilated L atrium.
Will coordinate outpt care
Subjective/Objective
Chief Complaint
Heme/Onc follow up of hematemasis and anemia
Subjective
Feels well, denies complaint.
Vital Signs:
Vital Signs
Temp Pulse Resp BP Pulse Ox
98.2 F 73 18 131/70 94
11/02/24 15:00 11/02/24 15:00 11/02/24 15:00 11/02/24 15:00 11/02/24 15:00
Lab Results:
Laboratory Data
WBC 11.7 10^3/uL (4.8-10.8) H 11/01/24 07:25
Hgb 8.7 g/dL (12.0-16.0) L 11/01/24 07:25
Plt Count 358 10^3/uL (130-400) 11/01/24 07:25
PT 15.1 Sec (11.4-14.6) H 10/28/24 10:11
INR 1.14 10/28/24 10:11
APTT 29.1 Sec (23.4-35.0) 10/28/24 10:11
eGFR > 60.00 11/02/24 05:59
Prelim path: Gastric diffuse large B-cell lymphoma
Physical Exam
Awake, alert, pale, non-toxic appearing
[2024-11-03 03:38] VITALS: BP 124/63
[2024-11-03 07:00] VITALS: BP 98/57
[2024-11-03] MEDS: ProAmatine PO ×2 (07:48→12:04)
[2024-11-03] MEDS: NSS (PRESERVATIVE FREE) 10 ML IV (07:51)
[2024-11-03] MEDS: FOLVITE 1 MG PO (07:51)
[2024-11-03] MEDS: CARAFATE SUSPENSION 1 GM PO ×2 (07:51→12:04)
[2024-11-03] MEDS: VITAMIN B-12 1000 MCG PO (07:51)
[2024-11-03] MEDS: PROTONIX IV 40 MG IV (07:52)
[2024-11-03 08:06] LABS: Hemoglobin 9.1 g/dL (12.0-16.0)
--- NOTE | 2024-11-03 09:50 | W.PN.ONC2 ---
Today's Communication / Plan
-
.
Impression
Impression
Infiltrative neoplasm lining of stomach, prelim path large cell lymphoma
B12 deficiency
Iron deficiency
Multi-factorial anemia: GI blood loss, substrate deficiency
Anasarca
Plan
Plan
usual management which would be chemotherapy vs. surgery, however, suspect pt would tolerate R-mini-CHOP.
- outpt PET
- outpt port placement
- Cardio-Oncology eval
Will coordinate outpt care
Family at bedside provided updates
Subjective/Objective
Subjective
ambulating
no new complaints
denies overt bleeding
Vital Signs:
Vital Signs
Temp Pulse Resp BP Pulse Ox
97.8 F 70 18 98/57 96
11/03/24 07:00 11/03/24 07:00 11/03/24 07:00 11/03/24 07:00 11/03/24 07:00
Lab Results:
Laboratory Data
WBC 11.7 10^3/uL (4.8-10.8) H 11/01/24 07:25
Hgb 9.1 g/dL (12.0-16.0) L 11/03/24 06:34
Plt Count 358 10^3/uL (130-400) 11/01/24 07:25
PT 15.1 Sec (11.4-14.6) H 10/28/24 10:11
INR 1.14 10/28/24 10:11
APTT 29.1 Sec (23.4-35.0) 10/28/24 10:11
eGFR > 60.00 11/02/24 05:59
[2024-11-03 11:16] VITALS: BP 114/62; PULSE 72; O2SAT 95
--- NOTE | 2024-11-03 11:17 | W.PN.HOSP.TC ---
Today's Communication/Plan
-
op GI and onc f/u
Assessment / Plan
Assessment / Plan
General: No Apparent Distress and Cachectic
HEENT: NormoCephalic, Moist mucous membranes and Atraumatic
Respiratory: dec bs L>R
Cardiac: S1/S2 and Regular Rhythm; No Murmur or Rub
GI: Soft, Non Tender, Non Distended and Normal Bowel Sounds; No Organomegaly
Rectal: Deferred by Provider
Musculoskeletal: No Clubbing, No Cyanosis, Edema, Left Upper Extremity, Edema, Right Upper Extremity, Edema, Left Lower Extremity and Edema, Right Lower Extremity-improvement lower extremity edema
Skin: No Rash
Neuro: Awake, Alert, Oriented, AO x 3, No Motor Deficits and Nonfocal/grossly intact
Psych: Calm
#Hematemesis suspected acute upper GI bleeding exacerbated due to NSAID usage-resolved
#Acute blood loss anemia
#Shock likely hemorrhagic due to volume loss
#Gastric B-cell lymphoma
Status post 3 units of PRBC. Hemoglobin 9.1
Wean off Levophed as tolerated
Status post PPI bolus and Protonix drip. Now on PPI BID and Carafate ordered
Avoid all NSAIDs. This was discussed with patient and granddaughter at bedside. Patient verbalized understanding
Status post emergent endoscopy with finding of Diffuse hemorrhagic ulcerated mucosa with intermittent nodularity with no bleeding and stigmata of recent bleeding was found in the entire examined stomach. Stomach was also narrowed and gave the
appearance of linitis plastica. Old blood seen in the fundus. No normal mucosa seen. s/p biopsies.
Colonoscopy per GI
Diet advanced.
Start on midodrine was increased to 10 mg. Off pressors.
Blood pressure is improving.
Diet per GI.
#Gastric B-cell lymphoma
Final biopsy results pending
Stomach biopsy - finalized Diffuse large B-cell lymphoma.
CT chest abdomen pelvis done.
Unclear if bx sent for h.pylori. d;w with Dr. Souza who requested h.pylori testing w/pathologist. f/u results Dr. KELLY in office
Patient informed of the results
Further blood work ordered
hep panel ordered negative.
Oncology evaluation-OP PET/Port/chemo etc
# Bilateral pleural effusion
Status post thoracentesis with findings 500cc removed on the left side.
Discussed with interventional radiology and not enough fluid for right-sided thoracentesis.
#Iron deficiency anemia
#Vitamin B12 deficiency
Start patient on IV iron while here can switch to p.o. on discharge
Start patient B12 supplementation and folic acid.
#Anasarca/hypoalbuminemia improving
Low albumin likely could be due to dietary deficiency
Check urine protein creatinine ratio with 200 mg. Will require further workup with nephrology as outpatient
Gentle IV fluids if needed
Creatinine normal.
Currently on albumin per certified medical assistant
Echocardiogram with normal ejection fraction. Valvular disease noted. Discussed with patient daughter.
#Severe leukocytosis possibly Could be reactive due to episode of GI bleeding versus due to malignancy
Patient with asymptomatic bacteriuria. White count continues to trend down.
#Thrombocytosis
Monitor for now
Platelets improved.
#Mild hyponatremia likely second to hypovolemia
Status post IV fluid bolus
Trend sodium for now
If with persistent drop then check urine lites
Sodium is improving.
DVT prophylaxis SCDs in the setting of GI bleeding
Full code
PT/OT Home PT versus SNF. Family would like to take patient home.
Discussed with patient daughter at bedside in details.
d/w with GI
More than 30 minutes spent in discharge including
Final examination of the patient
Summarizing hospital stay
Instructions for continuing care to all relevant caregivers
Preparation of discharge records, prescriptions, and referral forms
Total time spent (in minutes): 55
Anticipated Discharge: Today
Subjective/Interval History
-
Date of Service: November 03, 2024
tolerating diet
Objective Data
-
Labs:
Laboratory Results
11/03/24
06:34
Hgb 9.1 L
Hct 29.0 L
Vital Signs:
Vital Signs
Temp Pulse Resp BP Pulse Ox
97.8 F 70 18 98/57 96
11/03/24 07:00 11/03/24 07:00 11/03/24 07:00 11/03/24 07:00 11/03/24 07:00
I&O
11/02/24 11/03/24 11/04/24
06:59 06:59 06:59
Intake Total 900 / 900 1140 / 1140
Balance 900 / 900 1140 / 1140
--- NOTE | 2024-11-03 11:26 | W.DCSUMMARY ---
Discharge Summary
Discharge Data
Date of Admission: 10/28/24
Date of Discharge: 11/03/24
-
Pending Results: No
Hospital Course
84-year female past medical history of arthritis, anasarca, recent hernia repair with mesh who is presenting with complaints of hematemesis and melanotic stools. Patient was found to be severely anemic with hemoglobin of 5.2 requiring emergent 2
units of packed red blood cells for transfusion. Patient admitted to medical ICU. Patient underwent endoscopy which showed esophagus was normal. Diffuse hemorrhagic ulcerated mucosa with intermittent nodularity with no bleeding and stigmata of
recent bleeding was found in the entire examined stomach. Stomach was also narrowed and gave the appearance of linitis plastica. Old blood seen in the fundus. No normal mucosa seen. Biopsies were taken with a cold forceps for histology.The
examined duodenum was normal. Biopsies for histology were taken with na cold forceps for evaluation of celiac disease. Patient was also found to be iron deficient was started on IV iron. Patient was also started B12 supplementation. IV PPI was
transitioned to twice daily. Patient was also started on Carafate. Patient hemoglobin stabilized. Patient was also started on midodrine. Patient was transferred out of ICU. Diet was slowly advanced. Patient gastric biopsy positive for diffuse
large B-cell lymphoma. H. pylori testing was requested by oncologist and GI discussed at the visit pathology. Family to follow-up results as outpatient. Patient was tolerating diet. Hemoglobin was stable. Patient will follow-up outpatient with
gastroenterology and oncology.
Discharge Plan
-
Patient Disposition: Home with Home Care
Discharge Diagnosis/Procedures: Hematemesis suspected acute upper GI bleeding exacerbated due to NSAID usage
Acute blood loss anemia
Shock likely hemorrhagic due to volume loss
Gastric B-cell lymphoma
Pleural effusion Status post thoracentesis
Iron deficiency anemia
Vitamin B12 deficiency
Mild hyponatremia likely second to hypovolemia
Severe leukocytosis possibly Could be reactive due to episode of GI bleeding versus due to malignancy
Condition: Fair
Diet: Low Fat
Additional Diets: low-fat low fiber diet
Activity: With assistance and As tolerated
Driving Restrictions: Not until seen by your Dr
Blood Work: cbc in 1 week via primary doctor.
Other Services: [facility]
Activity Restrictions/Additional Instructions:
Follow-up H. pylori testing results with pottery kiln builder and or primary doctor as they are currently pending.
Referrals:
Khoa Harper MD [Active] - in one week (follow H.pylori results. )
Shanika Monroy MD [Active] - in one to two weeks
Guicho Barnard DO [Family Provider] - in less than 1 week
Prescriptions:
New
midodrine 5 mg Tablet
10 mg PO TID@0800,1300,1800 30 Days Qty: 180 0RF
folic acid 1 mg Tablet
1 mg PO DAILY 30 Days Qty: 30 0RF
cyanocobalamin (vitamin B-12) [Vitamin B-12] 1,000 mcg Tablet
1,000 mcg PO DAILY 30 Days Qty: 30 0RF
ferrous sulfate 325 mg (65 mg iron) tablet
325 mg PO DAILY Qty: 30 0RF
pantoprazole [Protonix] 40 mg tablet,delayed release (DR/EC)
40 mg PO BID Qty: 60 0RF
sucralfate [Carafate] 1 gram tablet
1 g PO ACHS 30 Days Qty: 120 0RF
Discontinued
naproxen sodium [Aleve] 220 MG tablet
440 mg PO BID
Discharge Orders:
Discharge Patient (As Directed); Ordered 11/03/24
Ordered By: Ede Dang
Discharge Date and Time
Print Language: STATELESS
[2024-11-03 11:30] VITALS: BP 114/62
--- NOTE | 2024-11-03 11:43 | W.PN.GI.CBS2 ---
Today's Communication / Plan
-
Asked to see again by oncology to review for H pylori
Dr. Souza reviewed with pathology and added on H pylori testing from prior EGD path
await results
if treatment needed pt request family be called to review results -- I reviewed with daughter to call office in 1 week to review results
Assessment / Plan
-
Pt is an 84 yo with hx sudhir, hysterectomy, ORIF femur, arthritis, hernia repair with mesh for incarcerated hernia with SB resection presents to ER today with onset of nausea with vomiting red blood and clots. In review with patient and family
noted with fall and rib fractures 3 months ago with Tylenol use then recent onset of diffuse swelling. She saw PCP in September with hbg 11.1 with some elevation of platelets. She began taking NSAID- Aleve 2 tabs BID for pain with swelling and noted
onset of nausea 10/27 then vomiting red blood 2 episode with second episode about 50ml of blood and presents to ER for evaluation. She was also noted with dark stool at home on day of admission. On admission she is noted hypotension with labs
noted WBC 39.2, hbg 5.2 with platelets 435, Na 130, creat 0.4, albumin 1.9. s/p EGD with concern for hemorrhagic ulcers and nodularity path with high grade B cell lymphoma
-concern for high grade B cell lymphoma
-onset of nausea/vomiting with hematemesis
-recent NSAID use
- anemia with drop in hbg 11.1 in September to 5.2 on admission
-new onset anasarca/hypoalbuminemia
-leukocytosis
-thrombocytosis
-hyponatremia
-hx fall with rib fx 3 months ago
other med problems:
-sudhir
-hysterectomy
-ORIF femur
-arthritis
-hernia repair with mesh with SB resection
EGD 10/28
Findings:
The examined esophagus was normal.
Diffuse hemorrhagic ulcerated mucosa with intermittent nodularity with
no bleeding and stigmata of recent bleeding was found in the entire
examined stomach. Stomach was also narrowed and gave the appearance of
linitis plastica. Old blood seen in the fundus. No normal mucosa seen.
Biopsies were taken with a cold forceps for histology.
The examined duodenum was normal. Biopsies for histology were taken with
a cold forceps for evaluation of celiac disease.
path results -high-grade B-cell lymphoma.
PLAN:
Asked to see again by oncology to review for H pylori
Dr. Souza reviewed with pathology and added on H pylori testing from prior EGD path
await results
if treatment needed pt request family be called to review results -- I reviewed with daughter to call office in 1 week to review results
Subjective
Subjective
Date of Service: November 03, 2024
10/31 small stool on low fat diet
Objective
Data Reviewed
Laboratory Data:
Laboratory Results
11/03/24 06:34
11/02/24 05:59
Laboratory Results
PT 15.1 Sec (11.4-14.6) H 10/28/24 10:11
INR 1.14 10/28/24 10:11
APTT 29.1 Sec (23.4-35.0) 10/28/24 10:11
Phosphorus 3.2 mg/dl (2.5-4.5) 10/31/24 07:08
Magnesium 1.8 mg/dl (1.6-2.3) 10/31/24 07:08
Total Bilirubin 0.4 mg/dl (0.2-1.3) 10/28/24 10:11
AST 21 U/L (14-36) 10/28/24 10:11
ALT 12 U/L (0-35) 10/28/24 10:11
Alkaline Phosphatase 71 U/L (38-126) 10/28/24 10:11
Lipase 129 U/L (23-300) 10/28/24 10:11
Vital Signs and I&O:
Vital Signs
Temp Pulse Resp BP Pulse Ox
97.8 F 70 18 98/57 96
11/03/24 07:00 11/03/24 07:00 11/03/24 07:00 11/03/24 07:00 11/03/24 07:00
I&O
11/02/24 11/03/24 11/04/24
06:59 06:59 06:59
Intake Total 900 / 900 1140 / 1140
Balance 900 / 900 1140 / 1140
Physical Exam
Physical Exam
HEENT: Anicteric and Moist mucous membranes
Cardiology: Normal Sinus Rhythm
Pulmonary: Clear
GI: Soft, Non Distended and Non Tender
Extremities: Edema (with anasaraca )
Neuro: Non Focal
--- NOTE | 2024-11-03 11:45 | CM ---
Plan is for discharge to home home today with visiting nurses, options reviewed with patient and she has selected [facility], [facility] liaison contacted.
Plan; Home with family and [facility].
--- NOTE | 2024-11-03 12:19 | VNURNOTE ---
Home Health Liaison met with patient and daugher at bedside to discuss [facility] nurse/therapy, visits, schedule and homebound status. Both are agreeable and understand that visits at home will be 2-3 x per week to assess and teach medical management.
[facility] contact information provided. Both patient and daughter are aware that [facility] will contact them for start of care in 1-2 days after discharge from .
[facility] referral completed in [facility].
== END 2024-11-03 14:11 | disposition home health service (06) | DRG 840 ==
LOC: 4 WEST ACU 13:07
PROVIDERS: Internal Medicine; Radiology Vascular & Interventional Radiology; ADMITTING PHYSICIAN Hospitalist; CONSULT PHYSICIAN Internal Medicine Critical Care Medicine; CONSULT PHYSICIAN Internal Medicine Gastroenterology; CONSULT PHYSICIAN Internal Medicine Hematology & Oncology; EMERGENCY PHYSICIAN Student in an Organized Health Care Education/Training Program; FAMILY PHYSICIAN Family Medicine
PROC: 30233N1 Transfusion of Nonautologous Red Blood Cells into Peripheral Vein, Percutaneous Approach (ICD-10-PCS; 2024-10-28)
PROC: 0DB98ZX Excision of Duodenum, Via Natural or Artificial Opening Endoscopic, Diagnostic (ICD-10-PCS; 2024-10-28)
PROC: 0DB68ZX Excision of Stomach, Via Natural or Artificial Opening Endoscopic, Diagnostic (ICD-10-PCS; 2024-10-28)
PROC: 0W9B3ZZ Drainage of Left Pleural Cavity, Percutaneous Approach (ICD-10-PCS; 2024-11-02)
DX: C83.398 Diffuse large B-cell lymphoma of other extranodal and solid organ sites (principal); R57.8 Other shock; K92.1 Melena; E87.1 Hypo-osmolality and hyponatremia; D62 Acute posthemorrhagic anemia; D68.32 Hemorrhagic disorder due to extrinsic circulating anticoagulants; J90 Pleural effusion, not elsewhere classified; K90.9 Intestinal malabsorption, unspecified; K31.1 Adult hypertrophic pyloric stenosis; K92.0 Hematemesis; M79.606 Pain in leg, unspecified; R10.13 Epigastric pain; M19.90 Unspecified osteoarthritis, unspecified site; D75.839 Thrombocytosis, unspecified; D72.829 Elevated white blood cell count, unspecified; E88.09 Other disorders of plasma-protein metabolism, not elsewhere classified; R63.0 Anorexia; D50.9 Iron deficiency anemia, unspecified; E53.8 Deficiency of other specified B group vitamins; E87.8 Other disorders of electrolyte and fluid balance, not elsewhere classified; D63.8 Anemia in other chronic diseases classified elsewhere; G89.29 Other chronic pain; R60.1 Generalized edema; E86.1 Hypovolemia; R82.71 Bacteriuria; Z90.710 Acquired absence of both cervix and uterus; Z90.49 Acquired absence of other specified parts of digestive tract; Z79.1 Long term (current) use of non-steroidal anti-inflammatories (NSAID)
CPT/HCPCS: 88305; 32555; 36430; 71045; 71260; 74177; 80048; 80053; 81003; 81015; 82570; 82607; 82728; 82746; 82945; 83090; 83540; 83550; 83615; 83690; 83735; 83921; 83986; 84100; 84156; 84157; 84550; 85014; 85018; 85025; 85027; 85610; 85730; 86704; 86706; 86803; 86850; 86900; 86901; 86920; 87015; 87070; 87077; 87086; 87186; 87205; 87340; 88112; 88341; 88342; 89051; 93005; 93306; 96361; 96374; 97162; 97166; 97530; 99285; J2916; P9016; P9047; Q9967

== ENCOUNTER → 2024-11-16 08:21 | Outpatient (REF) | payer MEDICARE, OTHER, SELFPAY ==
[2024-11-16 08:40] VITALS: BP 110/57; BP_SYST 72
[2024-11-16] MEDS: ANCEF 10 IV (09:17)
[2024-11-16 10:15] VITALS: BP 106/71; BP_SYST 82
[2024-11-16 10:31] VITALS: BP 97/56
== END ==
LOC: RADI 08:21
PROVIDERS: ATTENDING PHYSICIAN Internal Medicine Hematology & Oncology; FAMILY PHYSICIAN Family Medicine
DX: C83.33 Diffuse large B-cell lymphoma, intra-abdominal lymph nodes (principal)
CPT/HCPCS: 36561; 76937; 77001; 99152; 99153; C1788

== ENCOUNTER → 2024-11-18 13:59 | Outpatient (REF) | payer MEDICARE, OTHER, SELFPAY ==
[2024-11-18 14:05] LABS: % Basophils 0.2 % (0-2); % Eosinophils 0.2 % (0-6); % Immature Granulocytes 0.6 % (0-0.5); % Lymphocytes 6.7 % (20.5-51.1); % Monocytes 5.2 % (1.7-9.3); % Neutrophils 87.1 % (42.2-75.2); Absolute Immature Granulocytes 0.1 10^3/uL (0-0.05); Absolute Lymphocytes 1.2 10^3/uL (1.2-3.4); Absolute Monocytes 0.9 10^3/uL (0.1-0.6); Absolute Neutrophils 15.7 10^3/uL (1.4-6.5); Hematocrit 30.5 % (37.0-47.0); Hemoglobin 9.7 g/dL (12.0-16.0); Mean Corp Hgb Conc. 31.8 g/dL (33.0-37.0); Mean Corpuscular Hgb 26.1 pg (27.0-31.0); Mean Corpuscular Volume 82.2 fL (81.0-99.0); Mean Platelet Volume 8.9 fL (7.4-10.4); Platelet Count 309 10^3/uL (130-400); Red Blood Cell Count 3.71 10^6/uL (4.20-5.40); Red Cell Dist. Width 16.9 % (11.5-14.5)
[2024-11-18 15:00] LABS: ALT (SGPT) 11 U/L (0-35); AST (SGOT) 20 U/L (14-36); Albumin 2.1 g/dl (3.5-5.0); Alkaline Phosphatase 69 U/L (38-126); Blood Urea Nitrogen 14 mg/dl (7-17); Calcium 8.5 mg/dl (8.4-10.2); Carbon Dioxide 37 mmol/L (22-30); Chloride 92 mmol/L (98-107); Glucose 79 mg/dl (70-99); Potassium 3.7 mmol/L (3.5-5.1); Sodium 128 mmol/L (135-145); Total Bilirubin 0.4 mg/dl (0.2-1.3); eGFR > 60.00
== END ==
LOC: OIDL 13:59
PROVIDERS: ATTENDING PHYSICIAN Internal Medicine Hematology & Oncology
DX: C83.33 Diffuse large B-cell lymphoma, intra-abdominal lymph nodes (principal); D51.9 Vitamin B12 deficiency anemia, unspecified; E61.1 Iron deficiency
CPT/HCPCS: 80053; 85025

== ENCOUNTER 2025-01-17 17:05 | Emergency (ER) | payer MEDICARE, SELFPAY ==
[2025-01-17 17:07] VITALS: BP 127/84
[2025-01-17 17:51] LABS: PT 14.7 Sec (11.4-14.6)
[2025-01-17 17:55] LABS: ALT (SGPT) 13 U/L (0-35); AST (SGOT) 25 U/L (14-36); Albumin 2.5 g/dl (3.5-5.0); Alkaline Phosphatase 95 U/L (38-126); Blood Urea Nitrogen 15 mg/dl (7-17); Calcium 8.6 mg/dl (8.4-10.2); Carbon Dioxide 36 mmol/L (22-30); Chloride 97 mmol/L (98-107); Glucose 113 mg/dl (70-99); Potassium 3.1 mmol/L (3.5-5.1); Sodium 132 mmol/L (135-145); Total Bilirubin 0.2 mg/dl (0.2-1.3); Total Protein 4.5 g/dl (6.3-8.2); eGFR > 60.00
[2025-01-17 18:01] LABS: % Basophils 1.3 % (0-2); % Eosinophils 0.2 % (0-6); % Immature Granulocytes 6.4 % (0-0.5); % Lymphocytes 8.4 % (20.5-51.1); % Monocytes 4.6 % (1.7-9.3); % Neutrophils 79.1 % (42.2-75.2); Absolute Basophils 0.2 10^3/uL (0-0.2); Absolute Immature Granulocytes 0.9 10^3/uL (0-0.05); Absolute Lymphocytes 1.2 10^3/uL (1.2-3.4); Absolute Monocytes 0.7 10^3/uL (0.1-0.6); Absolute Neutrophils 11.4 10^3/uL (1.4-6.5); Hematocrit 31.6 % (37.0-47.0); Hemoglobin 10.3 g/dL (12.0-16.0); Mean Corp Hgb Conc. 32.6 g/dL (33.0-37.0); Mean Corpuscular Hgb 25.7 pg (27.0-31.0); Mean Corpuscular Volume 78.8 fL (81.0-99.0); Mean Platelet Volume 9.2 fL (7.4-10.4); Nucleated Red Blood Cells % 0 %; Platelet Count 264 10^3/uL (130-400); Red Blood Cell Count 4.01 10^6/uL (4.20-5.40); Red Cell Dist. Width 19.6 % (11.5-14.5); White Blood Cell Count 14.4 10^3/uL (4.8-10.8)
[2025-01-17 18:09] LABS: Troponin I < 0.012 ng/ml
[2025-01-17 18:26] VITALS: BMI 18.4
[2025-01-17 18:30] VITALS: BP 128/75
--- NOTE | 2025-01-17 18:30 | ED.GENMED ---
History of Present Illness
General
Chief Complaint: Cardiac Symptoms
Time Seen by Provider: 01/17/25 18:13
History of Present Illness
History of Present Illness:
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 Patient states around noon she developed chest pain with intermittent back pain. She
states that the back pain feels positional. It has since resolved. However she also felt palpitations this morning. They usually correlates with her potassium levels. She states that she had a low potassium level and her oncologist did give p.o.
potassium however it did not increase it. She does get blood work completed again in a few days. She denies any shortness of breath. No current chest pain or back pain. No numbness tingling. No weakness. No leg swelling. No hemoptysis.
Past History
Past History
ED Past Medical History: Other (osteoarthitis)
ED Past Surgical History: Orthopedic (ORIF of femur fx folling auto-ped)
Social History
Tobacco: Non-smoker
Alcohol: None
Drug: None
Phy Exam
Physical Exam
Physical Exam:
GENERAL: in no acute distress
HEENT: normocephalic, extraocular movements intact, moist oral mucosa
NECK: normal inspection
RESPIRATORY: no respiratory distress, clear to auscultation bilaterally
CARDIOVASCULAR: regular rate and rhythm
ABDOMEN/: soft, non-distended, non-tender to palpation, no rebound or guarding
EXTREMITIES: non-tender, no edema/swelling
NEUROLOGIC: awake and alert, moves all extremities
SKIN: warm
Course
Orders/Labs/Results
Orders:
Orders
01/17/25 17:10
Electrocardiogram (*1) Urgent
Reason for Study: Palpitations
01/17/25 17:11
EKG- Treatment ONCE
01/17/25 17:32
Comprehensive Metabolic Panel Urgent
Magnesium Urgent
Comment: ADD ON
PT/INR [Prothrombin Time] Urgent
Troponin I Urgent
01/17/25 17:33
Complete Blood Count/With Diff Urgent
01/17/25 18:27
EKG- Treatment ONCE
Potassium Chloride [KCl] 40 meq 0.9% Sodium Chloride 250 ml [Nss] 250 ml IV NOW
01/17/25 18:32
Add On- LAB Urgent
Tests Added?: mag
01/17/25 19:31
Magnesium Sulfate 4 Gram/100Ml [Magnesium Sulfate] 4 gram in 100 ml IV NOW
01/17/25 20:30
Electrocardiogram (*1) Urgent
Reason for Study: Chest Pain
01/17/25 20:39
Troponin I Urgent
Abnormal Lab Results
01/17/25 01/17/25
17:32 17:33
WBC 14.4 H 10^3/uL
(4.8-10.8)
RBC 4.01 L 10^6/uL
(4.20-5.40)
Hgb 10.3 L g/dL
(12.0-16.0)
Hct 31.6 L %
(37.0-47.0)
MCV 78.8 L fL
(81.0-99.0)
MCH 25.7 L pg
(27.0-31.0)
MCHC 32.6 L g/dL
(33.0-37.0)
RDW 19.6 H %
(11.5-14.5)
Abs Immat Gran (auto) 0.9 H 10^3/uL
(0-0.05)
Absolute Neuts (auto) 11.4 H 10^3/uL
(1.4-6.5)
Absolute Monos (auto) 0.7 H 10^3/uL
(0.1-0.6)
Immature Gran % 6.4 H %
(0-0.5)
Neutrophils % 79.1 H %
(42.2-75.2)
Lymphocytes % 8.4 L %
(20.5-51.1)
PT 14.7 H Sec
(11.4-14.6)
Sodium 132 L mmol/L
(135-145)
Potassium 3.1 L mmol/L
(3.5-5.1)
Chloride 97 L mmol/L
(98-107)
Carbon Dioxide 36 H mmol/L
(22-30)
Creatinine 0.3 L mg/dL
(0.6-1.0)
Glucose 113 H mg/dl
(70-99)
Magnesium 1.1 L mg/dl
(1.6-2.3)
Total Protein 4.5 L g/dl
(6.3-8.2)
Albumin 2.5 L g/dl
(3.5-5.0)
01/17/25 17:33
01/17/25 17:32
Vital Signs
Initial and Last Documented VS:
Initial Vital Signs
Temp Pulse Resp BP Pulse Ox
97.7 F 90 18 127/84 95
01/17/25 17:07 01/17/25 17:07 01/17/25 17:07 01/17/25 17:07 01/17/25 17:07
Last Documented Vital Signs
Temp Pulse Resp BP Pulse Ox
97.7 F 73 18 108/58 96
01/17/25 17:07 01/17/25 22:45 01/17/25 22:45 01/17/25 22:00 01/17/25 22:45
MDM/Problems Addressed
Differential Diagnosis Includes:
Patient is a 84-year-old woman with history of lymphoma presenting to the emergency department with palpitations and chest pain that have since resolved. On arrival vitals unremarkable exam is reassuring. Differential consist of atypical ACS
versus electrolyte derangement. Considered PE though patient is not tachycardic or hypoxic and is symptom-free at this time. EKG per my interpretation normal sinus rhythm. Blood work obtained prior to my evaluation shows leukocytosis which is
similar to prior. She does have hypokalemia. Will check magnesium level. Initial troponin negative. Will obtain delta troponin. Regarding patient's hypokalemia given that she was on p.o. potassium without improvement we will give IV
replacement. I did offer patient admission to make sure her potassium levels do respond to the potassium via the IV. However patient and patient's daughter at bedside states that they will get routine blood work done anyways in 2 days and will
follow-up then
*Critical Care Note
Total Time (30-74mins, 75-104mins- exclusive of procedures): Not Applicable
Update Note
Update Note:
Delta troponin negative. Patient magnesium is low. Will replete via IV.
Reevaluation patient resting comfortably. Patient without any new chest pain palpitations or other symptoms. Will discharge at this time. Patient will obtain outpatient blood work to ensure her electrolytes have normalized.
ED Attending Note
-
Portions of this chart may have been created with voice recognition software.� Occasional wrong word or��sound alike� substitutions may have occurred due to the inherent limitations of voice recognition software.
Discharge Plan
Departure
Patient Disposition: Home (Routine Discharge)
Date of Disposition: 01/17/25
Time of Disposition: 23:07
Patient with high blood pressure during this ER visit?: No
Discharge Problem:
Hypokalemia, Hypomagnesemia
Instructions: Chest Pain (DC)
Prescriptions:
No Action
midodrine 5 mg Tablet
10 mg PO TID@0800,1300,1800 30 Days Qty: 180 0RF
folic acid 1 mg Tablet
1 mg PO DAILY 30 Days Qty: 30 0RF
cyanocobalamin (vitamin B-12) [Vitamin B-12] 1,000 mcg Tablet
1,000 mcg PO DAILY 30 Days Qty: 30 0RF
ferrous sulfate 325 mg (65 mg iron) tablet
325 mg PO DAILY Qty: 30 0RF
pantoprazole [Protonix] 40 mg tablet,delayed release (DR/EC)
40 mg PO BID Qty: 60 0RF
sucralfate [Carafate] 1 gram tablet
1 g PO ACHS 30 Days Qty: 120 0RF
Referrals:
Guicho Barnard DO [Family Provider] -
Activity Restrictions/Additional Instructions:
You were seen in the Emergency Department today for palpitations and chest pain. While you were here we performed blood work, which did show low potassium and magnesium levels. Please make sure you obtain blood work to make sure that the
electrolytes have improved.
We would like for you to follow up with your primary care physician for further evaluation. If you experience fever, worsening of your symptoms, or develop any other new or concerning symptoms, please return to the Emergency Department immediately.
Please see the attached sheet for additional information.
Interventions
Interventions:
*Risk Screen - Suicide Last Done: 01/17/25 17:09
*General Assessment Last Done: 01/17/25 17:09
*Neglect/Abuse Screening Last Done: 01/17/25 17:09
*ED COVID-19 Vaccine History Last Done: 01/17/25 17:09
ED- Pulmonary Assessment Last Done: 01/17/25 18:26
ED- Cardiac Assessment Last Done: 01/17/25 18:26
Discharge Date and Time
Print Language: TURKISH
[2025-01-17 19:00] VITALS: BP 118/69
[2025-01-17 19:03] LABS: Magnesium 1.1 mg/dl (1.6-2.3)
[2025-01-17] MEDS: KCL 270 MEQ IV (19:04)
[2025-01-17 20:00] VITALS: BP 118/69
[2025-01-17] MEDS: MAGNESIUM SULFATE 100 IV (20:14)
[2025-01-17 21:00] VITALS: BP 122/67
[2025-01-17 21:20] LABS: Troponin I < 0.012 ng/ml
[2025-01-17 22:00] VITALS: BP 108/58
[2025-01-18] VITALS: BP 100/61
[2025-01-18 00:25] VITALS: BP 101/63
== END 2025-01-18 00:30 | disposition home or self-care (01) ==
LOC: EMR 17:05
PROVIDERS: Student in an Organized Health Care Education/Training Program; EMERGENCY PHYSICIAN Student in an Organized Health Care Education/Training Program; FAMILY PHYSICIAN Family Medicine
DX: E87.6 Hypokalemia (principal); E83.42 Hypomagnesemia; R07.9 Chest pain, unspecified; R00.2 Palpitations; Z85.72 Personal history of non-Hodgkin lymphomas; Z86.2 Personal history of diseases of the blood and blood-forming organs and certain disorders involving the immune mechanism
CPT/HCPCS: 96365; 96367; 96366; 99284; 80053; 83735; 84484; 85025; 85610; 93005

== ENCOUNTER 2025-01-21 09:28 | Outpatient (RCR) | payer MEDICARE, SELFPAY ==
[2025-01-21 10:09] LABS: Magnesium 1.1 mg/dl (1.6-2.3)
== END 2025-01-30 23:59 | disposition home or self-care (01) ==
LOC: OID 09:28
PROVIDERS: ATTENDING PHYSICIAN Nurse Practitioner Primary Care
DX: C83.33 Diffuse large B-cell lymphoma, intra-abdominal lymph nodes (principal); D51.9 Vitamin B12 deficiency anemia, unspecified; E61.1 Iron deficiency
CPT/HCPCS: 83735

== ENCOUNTER 2025-03-23 15:30 | Inpatient (IN) | payer MEDICARE, SELFPAY ==
[2025-03-22] VITALS (10 sets, daily range): BP systolic 118–148; BP diastolic 60–84; BMI 16.3
--- NOTE | 2025-03-22 14:31 | ED.GENMED ---
History of Present Illness
General
Chief Complaint: Abdominal Symptoms
Time Seen by Provider: 03/22/25 14:10
History of Present Illness
History of Present Illness:
85-year-old female with medical history significant for lymphoma presents to the emergency department for evaluation of intractable nausea and vomiting beginning this morning. Denies any abdominal pain at this time. Notes that she is approximate 3
weeks status post immunotherapy treatment. No reported fevers or chills. No new leg edema. No shortness of breath or chest pain.
Past History
Past History
ED Past Medical History: Other (osteoarthitis)
ED Past Surgical History: Orthopedic (ORIF of femur fx folling auto-ped)
Social History
Tobacco: Non-smoker
Alcohol: None
Drug: None
Review of Systems
Review of Systems
Allergies reviewed?: Yes
All Other Systems: ROS reviewed and negative except as documented in HPI and ROS
Phy Exam
Physical Exam
Physical Exam:
GEN: Well appearing, NAD, WDWN
HEENT: Oral mucosa moist, no scleral icterus
Cardiac: Regular rate and rhythm, no murmurs
Lung: No respiratory distress, no tachypnea, lungs clear to auscultation bilaterally
Abdomen: Soft, epigastric and left upper quadrant tenderness with no rigidity
MSK: No gross deformity or injuries
Skin: Good color, no pallor or jaundice, no rashes
Neuro: AO x3, moves all extremities freely
Psych: Calm, cooperative
Course
Orders/Labs/Results
Orders:
Orders
03/22/25 Lunch
Regular
At Your Request: Limited, Stock Driver Required
Oral Supplement (If unsure of flavor order apple or vanilla): Ensure Enlive Chocolate
Supplement Frequency: BID
03/22/25 14:27
Electrocardiogram (*1) Urgent
Reason for Study: QTc Monitoring
EKG- Treatment ONCE
0.9% Sodium Chloride 1000 ml [Nss] 1,000 ml IV BOLUS
03/22/25 14:28
CMP [Comprehensive Metabolic Panel] Urgent
Complete Blood Count/With Diff Urgent
Lipase Urgent
Magnesium Urgent
Comment: ADD ON
Phosphorus Urgent
Comment: ADD ON
03/22/25 15:30
CR Chest - 2 Views Urgent
Comment:
Reason For Exam: cough
03/22/25 16:17
Azithromycin 500 mg/250 ml [Zithromax Infusion] 500 mg in 250 ml IV NOW
CefTRIAXone [Rocephin] 1,000 mg IV NOW STA
03/22/25 16:30
Lactic Acid Q4H
Comment: CANCEL 2nd LACTIC ACID IF 1st LACTIC ACID IS LESS THAN 2
03/22/25 17:57
Code Status As Directed
Resuscitation Status: Do not resuscitate
Reached after discussion with pt or family/Healthcare POA: Yes
Acetaminophen [Tylenol] 650 mg PO Q4HPRN PRN
Bisacodyl [Dulcolax] 10 mg RECTAL [id number] PRN
Docusate W/Senna [Senokot-S] 1 tablet PO BIDPRN PRN
Polyethylene Glycol Powder [Miralax] 17 grams PO DAILYPRN PRN
Activity As Directed
Activity Level: With Assistance
DNR Bracelet Application ONCE
Precautions As Directed
Type of Precautions: Other
Comment: Fall precautions
Vital Signs As Directed
Frequency: Per unit guidelines
03/22/25 17:58
DX Deep Vein Thrombosis Video Routine
03/22/25 18:00
0.9% Sodium Chloride 1000 ml [Nss] 1,000 ml IV 75 mls/hr
Enoxaparin Sodium [Lovenox] 40 mg SC QPM
03/22/25 18:02
Lorazepam [Ativan] 0.25 mg PO Q6HPRN PRN
Trimethobenzamide [Tigan] 200 mg IM Q6HPRN PRN
03/22/25 18:05
Ot Eval And Treat Routine
Pt Eval And Treat Routine
Activity Level: With Assistance
Venous Doppler Lwr Ext Bilat [US Periph Venous LOWER Ext Dave] Routine
Comment:
Reason For Exam: calf asymmetry pitting edema amb dysf
03/22/25 18:07
Admit/Transfer Patient As Directed
Co-Sign Provider:
Level of Care: Observation services
Assign to:: Telemetry
Physician / Group: Reyes Malloy
Diagnosis: Possible PNA high white count
Reason for Telemetry: Arrhythmia
Date to Stop Telemetry: 03/25/25
Time to Stop Telemetry: 11:00
PRN Pain Medication Management As Directed
May give lesser potent ordered pain med per pt: Yes
preference::
Protocol:: Medication orders for pain may be administered in a
manner that supports deferring to patient preference
when the pt is:
- Requesting an ordered lesser potent pain medication.
Least to most potent pain medications are defined
as: acetaminophen < NSAID < tramadol < opioids
(morphine, oxycodone, hydromorphone).
- Requesting a lesser dose of the same medication IF
ORDERED.
- Requesting a less intrusive route of administration
if both routes are prescribed by the provider (PO <
IV).
03/22/25 18:10
Add On- LAB Routine
Tests Added?: Mg, Phos
03/22/25 19:05
Calcium 200mg(Ca. Carb. 500mg) [Tums Chewable Tablet] 400 mg PO DAILYPRN PRN
03/22/25 19:30
Procalcitonin Routine
If negative, will antibiotics be d/c'd or not started: Yes
Does the patient have renal or hepatic impairment?: No
Any recent (w/in 48 hrs) physiologic stress (CPR, rhabdo): No
Blood Culture Q30M
PAIGE Source: Blood/Venous
Specimen Description:
03/22/25 19:31
Lactic Acid Q4H
Comment: CANCEL 2nd LACTIC ACID IF 1st LACTIC ACID IS LESS THAN 2
03/22/25 19:35
Blood Culture Q30M
PAIGE Source: Blood/Venous
Specimen Description:
03/22/25 22:00
Sucralfate [Carafate] 1 gram PO ACHS
03/23/25 06:00
EKG [Electrocardiogram (*1)] IN AM
Reason for Study: QTc Monitoring
Basic Metabolic Panel IN AM
Complete Blood Count/No Diff IN AM
Magnesium IN AM
03/23/25 08:00
Cyanocobalamin [Vitamin B-12] 1,000 mcg PO DAILY
FOLic ACID [Folvite] 1 mg PO DAILY
Ferrous Sulfate [Feosol] 325 mg PO DAILY
Magnesium l-Lactate [Mag-Tab Sr] 168 mg PO DAILY
Pantoprazole [Protonix] 40 mg PO DAILY
Potassium Chloride [KCl] 10 meq PO DAILY
03/25/25 11:00
DC Protocol for Telemetry ONCE
Abnormal Lab Results
03/22/25
14:28
WBC 33.6 H 10^3/uL
(4.8-10.8)
RBC 3.71 L 10^6/uL
(4.20-5.40)
Hgb 10.5 L g/dL
(12.0-16.0)
Hct 32.1 L %
(37.0-47.0)
MCHC 32.7 L g/dL
(33.0-37.0)
RDW 19.6 H %
(11.5-14.5)
Abs Immat Gran (auto) 1.8 H 10^3/uL
(0-0.05)
Absolute Neuts (auto) 29.0 H 10^3/uL
(1.4-6.5)
Absolute Monos (auto) 1.1 H 10^3/uL
(0.1-0.6)
Immature Gran % 5.4 H %
(0-0.5)
Neutrophils % 86.3 H %
(42.2-75.2)
Lymphocytes % 4.8 L %
(20.5-51.1)
Sodium 129 L mmol/L
(135-145)
Carbon Dioxide 31 H mmol/L
(22-30)
Creatinine 0.3 L mg/dL
(0.6-1.0)
Calcium 8.2 L mg/dl
(8.4-10.2)
Alkaline Phosphatase 156 H U/L
(38-126)
Total Protein 4.4 L g/dl
(6.3-8.2)
Albumin 2.4 L g/dl
(3.5-5.0)
03/22/25 14:28
03/22/25 14:28
Vital Signs
Initial and Last Documented VS:
Initial Vital Signs
BP
125/84
03/22/25 14:13
Last Documented Vital Signs
Temp Pulse Resp BP Pulse Ox
98 F 69 18 148/73 96
03/22/25 14:15 03/22/25 14:15 03/22/25 14:15 03/22/25 18:00 03/22/25 17:52
MDM/Problems Addressed
MDM/Problems Addressed:
Patient reported having frequent mucus production in the mornings prompting chest x-ray which did reveal a left perihilar pneumonia. Her leukocytosis may be a product of Neulasta versus a systemic response due to pneumonia, nevertheless she is
immunocompromised on chemotherapy thus warrants inpatient treatment for IV antibiotics
*Pulse Oximetry
SaO2: 97
Oxygen Mode of Delivery: Room air
Patient hypoxic: no
*Critical Care Note
Total Time (30-74mins, 75-104mins- exclusive of procedures): Not Applicable
ED Attending Note
-
Portions of this chart may have been created with voice recognition software.� Occasional wrong word or��sound alike� substitutions may have occurred due to the inherent limitations of voice recognition software.
Discharge Plan
Departure
Patient Disposition: Admit
Date of Disposition: 03/22/25
Time of Disposition: 16:28
Presentation/result/management discussed w/ accepting MD/DO: Hospitalist
Discharge Problem:
Pneumonia
Interventions
Interventions:
*Risk Screen - Suicide Last Done: 03/22/25 14:15
*General Assessment Last Done: 03/22/25 14:15
*Neglect/Abuse Screening Last Done: 03/22/25 14:15
*ED- Fall Risk Assessment Last Done: 03/22/25 14:15
*ED COVID-19 Vaccine History Last Done: 03/22/25 14:15
[place] Assessment Last Done: 03/22/25 14:15
[2025-03-22] MEDS: NSS 1000 IV ×3 (14:32→21:31)
[2025-03-22 14:51] LABS: Hematocrit 32.1 % (37.0-47.0); Hemoglobin 10.5 g/dL (12.0-16.0); Mean Corp Hgb Conc. 32.7 g/dL (33.0-37.0); Mean Corpuscular Volume 86.5 fL (81.0-99.0); Platelet Count 274 10^3/uL (130-400); Red Cell Dist. Width 19.6 % (11.5-14.5)
[2025-03-22 14:56] LABS: ALT (SGPT) 14 U/L (0-35); AST (SGOT) 22 U/L (14-36); Albumin 2.4 g/dl (3.5-5.0); Alkaline Phosphatase 156 U/L (38-126); Blood Urea Nitrogen 14 mg/dl (7-17); Calcium 8.2 mg/dl (8.4-10.2); Carbon Dioxide 31 mmol/L (22-30); Chloride 98 mmol/L (98-107); Estimated Creatinine Clearance 45 ml/min; Glucose 79 mg/dl (70-99); Lipase 23 U/L (23-300); Potassium 4.0 mmol/L (3.5-5.1); Sodium 129 mmol/L (135-145); Total Protein 4.4 g/dl (6.3-8.2); eGFR > 60.00
[2025-03-22 15:14] LABS: Nucleated Red Blood Cells % 0 %
--- NOTE | 2025-03-22 16:38 | HPS.HSE ---
Family Physician
-
Family Physician: NOT KNOW UNKNOWN - PT DOES
Chief Complaint
-
General Malaise
History of Present Illness
85F Lymphoma on chemo (6th tx earlier this month) hx Lt Femur fx ORIF, walker at baseline, brought in by daughter d/t c/o general malaise fatigue nausea. VSS otherwise stable on room air. ED evaluation concerning for elevated white count possibly
due to PNA vs Neulasta given after last chemo session. EKG also noted QT prolongation 500s. CXR concerning for pneumonia though improved in comparison to prior imaging, per report. Denies sob coughing sneezing. Endorses poor appetite for the
past few months. Daughter MURPHY Opal at bedside assisting with history.
Medical History
Past Medical History
Past Medical History: Reports Other (as above)
Past Surgical History: Reports Other (as above)
Social History
Tobacco: Non-smoker
Alcohol: None
Drug: None
Living: With Family
Family History
Family History: Not pertinent (reviewed)
Allergies / Home Medications
Allergies reflects when Allergies were last updated in [facility].
Home Medications with original date entered in [facility]
Allergy/Medication List:
Allergies
Allergy/AdvReac Type Severity Reaction Status Date / Time
No Known Allergies Allergy Verified 01/17/25 17:09
Home Medications
cyanocobalamin (vitamin B-12) 1,000 mcg tablet (Vitamin B-12) 1,000 mcg PO DAILY 30 days #30 tabs 11/02/24
ferrous sulfate 325 mg (65 mg iron) tablet 325 mg PO DAILY #30 tabs 11/02/24
folic acid 1 mg tablet 1 mg PO DAILY 30 days #30 tabs 11/02/24
sucralfate 1 gram tablet (Carafate) 1 g PO ACHS 30 days #120 tabs 11/02/24
Tums 2 tab PO DAILYPRN PRN gerd 03/22/25
magnesium oxide 800 mg PO DAILY 03/22/25
midodrine 5 mg tablet 5 mg PO DAILYPRN PRN hypotension 03/22/25
pantoprazole 40 mg tablet,delayed release (Protonix) 40 mg PO DAILY 03/22/25
potassium chloride 10 mEq tablet,extended release 10 meq PO DAILY 03/22/25
Review of Systems
-
A 12 point ROS was completed and negative except as noted: Yes
Constitutional: Reports Other (as below)
Physical Exam
Vital Signs
Vital Signs
Temp Pulse Resp BP Pulse Ox
98 F 69 18 127/60 97
03/22/25 14:15 03/22/25 14:15 03/22/25 14:15 03/22/25 15:00 03/22/25 15:06
Physical Exam
General: Other (as below)
Laboratory Results
-
03/22/25 14:28
03/22/25 14:28
Laboratory Results
Total Bilirubin 0.5 mg/dl (0.2-1.3) 03/22/25 14:28
AST 22 U/L (14-36) 03/22/25 14:28
ALT 14 U/L (0-35) 03/22/25 14:28
Alkaline Phosphatase 156 U/L (38-126) H 03/22/25 14:28
Lipase 23 U/L (23-300) 03/22/25 14:28
Impression/Plan
-
ROS
General: Denies fever chills night sweats
Neuro: Denies seizure shaking loss of consciousness dizziness vertigo
Psych: denies depression hallucinations confusion manic episodes
Endocrine: Denies polyuria polydipsia polyphagia heat/cold intolerance
HEENT: Denies blindness visual disturbances epistaxis
Pulmonary: denies coughing hemoptysis sneezing sob dyspnea on exertion
Cardiovascular: denies chest pain palpitations leg swelling
Hematology: denies signs symptoms of anemia easy bruising/bleeding
Gastrointestinal: reports nausea vomiting appetite loss denies diarrhea constipation hematemesis hematochezia melena
Genito-Urinary: denies retention incontinence dysuria
Musculoskeletal: reports generalized weakness
Dermatology: denies rash laceration bruising
Physical Exam
General: pallor cachectic appearance no cyanosis or jaundice.
HEENT: Throat clear. PERRLA Normocephalic atraumatic
NECK: Supple. No JVD Carotid Bruits
RESPIRATORY: Lungs clear to auscultation. No crackles wheezes stridor
CVS: S1, S2 normal. RRR. No murmur, rub or gallop. right chest port present
ABDOMEN: Soft, non-tender. No distension. BS+/normal.
EXTREMITIES: No peripheral cyanosis, +2 pitting edema LE's b/l left calf significantly bigger than right calf
MATHEMATICIAN RESEARCH: AOx3. No focal deficits.
IMPRESSION:
85F Lymphoma on chemo (6th tx earlier this month) hx Lt Femur fx ORIF, walker at baseline, brought in by daughter d/t c/o general malaise fatigue nausea. VSS otherwise stable on room air. ED evaluation concerning for elevated white count possibly
due to PNA vs Neulasta given after last chemo session. EKG also noted QT prolongation 500s. CXR concerning for pneumonia though improved in comparison to prior imaging, per report. Denies sob coughing sneezing. Endorses poor appetite for the
past few months. Daughter MURPHY Joseph at bedside assisting with history.
PLAN:
#High Leukocytosis suspect 2/2 recent neulasta
#PNA less likely, denies respiratory symptoms, CXR though noted possible PNA also noted improvement in comparison to prior imaging
Tele observation for now (tele for QT prolongation as below)
PT/OT eval
fall precautions
received empiric ceftriaxone and azithromycin in ED
Check procal and lactic acid, hold further abx administration at this time
trend wbc
#QT prolongation 500s
monitor on tele
avoid/minimize use of QT prolonging agents
monitor and replete electrolytes as necessary
follow up AM repeat EKG
#Mild Hyponatremia
suspect d/t poor oral intake
IVF NS
monitor
#N/V appetite loss
likely 2/2 chemo
Ensure supplementation
PO ativan prn nausea (IV shortage)
Tigan IM prn if unable to tolerate oral, avoiding QT prolonging agents as above
#LE swelling pitting edema asymmetry
likely 2/2 hypoalbuminemia
Venous duplex eval for possible DVT
DVT ppx Lovenox
DNR as per patient, daughter Opal in agreement with patient's decision
I spent a total of 80 minutes with the patient or on the floor. More than 50% of this time involved counseling and coordination of care.
[2025-03-22] MEDS: ZITHROMAX INFUSION 250 IV (17:05)
[2025-03-22] MEDS: ROCEPHIN 1000 MG IV (17:05)
[2025-03-22 18:45] LABS: Magnesium 1.8 mg/dl (1.6-2.3)
[2025-03-22] MEDS: ATIVAN 0.25 MG PO (20:12)
[2025-03-22] MEDS: LOVENOX 40 MG SC (20:13)
[2025-03-22 20:26] LABS: Procalcitonin 0.28 ng/ml (0.0-0.25)
[2025-03-22] MEDS: CARAFATE 1 GRAM PO (21:34)
[2025-03-23] VITALS (7 sets, daily range): BP systolic 109–120; BP diastolic 59–74; BMI 16.3
[2025-03-23 06:14] LABS: Hematocrit 25.1 % (37.0-47.0); Hemoglobin 8.2 g/dL (12.0-16.0); Mean Corp Hgb Conc. 32.7 g/dL (33.0-37.0); Mean Corpuscular Volume 85.7 fL (81.0-99.0); Platelet Count 284 10^3/uL (130-400); Red Cell Dist. Width 19.5 % (11.5-14.5)
[2025-03-23 06:18] LABS: Blood Urea Nitrogen 11 mg/dl (7-17); Calcium 7.4 mg/dl (8.4-10.2); Carbon Dioxide 31 mmol/L (22-30); Chloride 100 mmol/L (98-107); Estimated Creatinine Clearance 45 ml/min; Glucose 48 mg/dl (70-99); Magnesium 1.7 mg/dl (1.6-2.3); Potassium 3.4 mmol/L (3.5-5.1); Sodium 130 mmol/L (135-145); eGFR > 60.00
[2025-03-23] MEDS: DEXTROSE 50% SYRINGE 12.5 GRAMS IV (06:28)
[2025-03-23 06:47] LABS: Glucose - Point of Care 118 mg/dl (70-99)
--- NOTE | 2025-03-23 07:10 | DOWNTIME ---
There was a Triptease Client Press Operator Downtime on 03/23/2025 from 0100 to 03/23/2025 at 0220. Downtime documentation of patient's care, including medication administrations, has been reconciled in the electronic record per guidelines. Refer to the
patient's paper chart under the miscellaneous tab to see printed paper medication records and downtime forms.
[2025-03-23] MEDS: KCL 10 MEQ PO (08:21)
[2025-03-23] MEDS: FEOSOL 325 MG PO (08:21)
[2025-03-23] MEDS: CARAFATE 1 GRAM PO ×3 (08:21→21:08)
[2025-03-23] MEDS: VITAMIN B-12 1000 MCG PO (08:21)
[2025-03-23] MEDS: FOLVITE 1 MG PO (08:21)
[2025-03-23] MEDS: MAG-TAB SR 168 MG PO (08:21)
[2025-03-23] MEDS: PROTONIX 40 MG PO ×2 (08:21→21:08)
[2025-03-23 09:14] LABS: Glucose - Point of Care 98 mg/dl (70-99)
--- NOTE | 2025-03-23 09:24 | PTCARENOTE ---
pt wakes to name. states no pain or sob. just tired. poor appetite.
[2025-03-23] MEDS: D5/0.9% SODIUM CHLORIDE 1000 IV (09:32)
[2025-03-23] MEDS: AUGMENTIN 875 MG/125 MG 1 TABLET PO ×2 (09:32→21:07)
--- NOTE | 2025-03-23 09:39 | W.PN.HOSP.TC ---
Today's Communication/Plan
-
see a/p
Assessment / Plan
Assessment / Plan
Physical Exam
General: pallor cachectic appearance no cyanosis or jaundice.
HEENT: Throat clear. PERRLA Normocephalic atraumatic
NECK: Supple. No JVD Carotid Bruits
RESPIRATORY: Lungs clear to auscultation. No crackles wheezes stridor
CVS: S1, S2 normal. RRR. No murmur, rub or gallop. right chest port present
ABDOMEN: Soft, non-tender. No distension. BS+/normal.
EXTREMITIES: No peripheral cyanosis, +2 pitting edema LE's b/l left calf significantly bigger than right calf
SITE INTERPRETER: AOx3. No focal deficits.
IMPRESSION:
85F Lymphoma on chemo (6th tx earlier this month) hx Lt Femur fx ORIF, walker at baseline, brought in by daughter d/t c/o general malaise fatigue nausea. VSS otherwise stable on room air. ED evaluation concerning for elevated white count possibly
due to PNA vs Neulasta given after last chemo session. EKG also noted QT prolongation 500s. CXR concerning for pneumonia though improved in comparison to prior imaging, per report. Denies sob coughing sneezing. Endorses poor appetite for the
past few months. Daughter MURPHY Joseph at bedside assisting with history.
PLAN:
#High Leukocytosis suspect 2/2 recent neulasta
#Possible PNA
initial CXR noted possible pna but also noted improvement compared to prior imaging
Tele observation for now (tele for QT prolongation as below)
PT/OT eval
fall precautions
received empiric ceftriaxone and azithromycin in ED
no significant lactic acidosis
mild procal elevation
trend wbc
ID eval appreciated IV abx de-escalated to Augmentin and Doxycycline with clinical improvement
#QT prolongation 500s
since resolved following repletion electrolytes
#Mild Hyponatremia
suspect d/t poor oral intake
IVF NS
monitor
#N/V appetite loss
likely 2/2 chemo vs malignancy
Ensure supplementation
compazine prn nausea (has not required)
cont home protonix carafate
nausea resolved since admission, appetite also improved
#Acute B/l extensive DVTs
#LE swelling pitting edema asymmetry
#hypoalbuminemia also likely contributing to swelling
#Anemia of Chronic Disease
#Possible Hemodilution from IVF
Venous duplex pos for extensive b/l DVTs
checking CT angio chest/abd/pelvis to evaluate extent of dvts
Noted patient was here October 2024 for GIB that lead to discovery of Lymphoma
discussed with patient and patient's family (SONALA daughter same name Opal and granddaughter Ibis) regarding concerns of recurrence GIB while on therapeutic Lovenox. Discussed benefits of treating DVT with anticoagulation, plan for close
monitoring to insure stable on therapeutic Lovenox before transitioning to DOAC, increasing Protonix to BID to further reduce risk of recurrence GIB. Also discussed if patient unable to tolerate, the next step would be to consider IVC filter- which
would reduce risk of PE but not treat patient's DVTs. Further it was emphasized that patient may still develop PE even with IVC filter in place. Also discussed patient at significant risk of developing pulmonary embolism (increased risk
morbidity/mortality) without either treatments, anticoagulation or IVC filter. All questions answered, patient and family agreeable with proceeding trial Lovenox
DVT PPx Lovenox increased to therapeutic dosing
type and screen, patient consented for transfusion if necessary (daughter MURPHY signed on her behalf per pt's request)
DVT ppx on therapeutic Lovenox as above
DNR
Discussed with patient, patient's Daughter MURPHY same name Opal, and granddaughter Ibis
I spent a total of 50 minutes with the patient or on the floor. More than 50% of this time involved counseling and coordination of care.
Anticipated Discharge: 24 - 48 hours
Subjective/Interval History
-
Date of Service: March 23, 2025
Overall reports feeling well. Significant improvement in symptoms, including appetite. Tolerating diet.
Objective Data
-
Labs:
Laboratory Results
03/23/25
04:57
WBC 21.7 H
Hgb 8.2 L D
Hct 25.1 L
Plt Count 284
Sodium 130 L
Potassium 3.4 L
Chloride 100
Carbon Dioxide 31 H
BUN 11
Creatinine 0.4 L
Glucose 48 L*
Calcium 7.4 L
Vital Signs:
Vital Signs
Temp Pulse Resp BP Pulse Ox
97.5 F 70 16 113/63 99
03/23/25 07:00 03/23/25 07:00 03/23/25 07:00 03/23/25 07:00 03/23/25 07:00
I&O
03/22/25 03/23/25 03/24/25
06:59 06:59 06:59
Intake Total 120 / 120
Balance 120 / 120
[2025-03-23] MEDS: KCL ELIXIR 40 MEQ PO (09:48)
[2025-03-23] MEDS: MAGNESIUM SULFATE 50 IV (09:48)
--- NOTE | 2025-03-23 11:08 | CON.ONC ---
Consultation
-
Date Consultation Performed: 03/23/25
Performing Provider: Rosemary Kam
Impression
Impression
Gastric Lymphoma s/p 6 cycles of mini RCHOP - last treatment 03/04, last growth stimulating factor 03/08.
LLL Pneumonia seen on Chest Xray
Elevated WBC (21.7) in setting of recent Neulasta and pneumonia
Patient has poor PO intake at home, improved in hospital
Plan
Plan
Antibiotics as per primary team for pneumonia
Will follow WBC count likely related to current infection
Continue PPI after discharge
Restaging PET scan currently scheduled for April 14 per patient - consider moving up imaging
Will follow along while admitted.
Patient History
History of Present Illness
85 year old female PMH of gastric lymphoma s/p 6 cycles mini R-CHOP completed on 03/04/25, presenting to the ED with general malaise, fatigue and nausea.
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 Patient presented to the ED with hematemesis, melanotic stools and anasarca. Patient hgb at that time was 5.2. Patient underwent endoscopy showing normal esophagus but
diffuse hemorrhagic ulcerated gastric mucosa with intermittent nodularity. The stomach was narrowed with appearance of infiltrative process. Biopsy revealed large cell gastric lymphoma. Patient is now s/p 6 cycles of mini R-CHOP completed last cycle
on 03/04/25, last growth stimulating factor on 03/08/25. Patient has had ~50lbs weight loss since diagnosis and initiation of treatment, but plateaued recently. Patient had been feeling nauseous and not eating much since starting chemo. Patient tried to
drink Ensures, but said they induced vomiting. She was having trouble keeping any food down after. Daughter brought patient in for her symptoms.
In ED patient had VSS stable on room air. Labs notable for elevated WBC of 33.6 g/dL, ANC 29.0 10^3/uL, hgb 8.2 g/dL. EKG also noted QT prolongation 500s. Chest Xray concerning for mild left lower lobe and left perihilar probable pneumonia. Patient
started on amoxicillin/clavulanate and a PPI.
Patient seen at the bedside today. She is feeling alright. Patient denies all ROS currently, and says that she has been eating better here. Patient follows with Dr. Toney and Brigid and is due for reimaging in April.
Past-Medical/Surgical History
Medical
arthritis
Surgical
hernia repair
Patient Medication
�Medication �Instructions �Recorded �Confirmed �Last Taken �Type
cyanocobalamin (vitamin B-12) 1,000 mcg PO DAILY 30 days #30 tabs 11/02/24 03/22/25 03/22/25 Rx
1,000 mcg tablet (Vitamin B-12)
ferrous sulfate 325 mg (65 mg 325 mg PO DAILY #30 tabs 11/02/24 03/22/25 03/22/25 Rx
iron) tablet
folic acid 1 mg tablet 1 mg PO DAILY 30 days #30 tabs 11/02/24 03/22/25 03/22/25 Rx
sucralfate 1 gram tablet (Carafate) 1 g PO ACHS 30 days #120 tabs 11/02/24 03/22/25 03/22/25 Rx
Tums 2 tab PO DAILYPRN PRN gerd 03/22/25 03/22/25 3 Days Ago History
~03/19/25
magnesium oxide 800 mg PO DAILY Stroke 03/22/25 03/22/25 03/22/25 History
midodrine 5 mg tablet 5 mg PO DAILYPRN PRN hypotension 03/22/25 03/22/25 3 Days Ago History
~03/19/25
pantoprazole 40 mg tablet,delayed 40 mg PO DAILY Gastrointestinal 03/22/25 03/22/25 03/22/25 History
release (Protonix) Issue
potassium chloride 10 mEq 10 meq PO DAILY Supplement 03/22/25 03/22/25 03/21/25 History
tablet,extended release
Active Medications
Generic Name Dose Route Start Last Admin
Trade Name Freq PRN Reason Stop Dose Admin
Acetaminophen 650 mg 03/22/25 17:57
Acetaminophen 325 Mg Tablet PO 04/19/25 17:56
Q4HPRN PRN
mild pain/HOWELL/temp> 100.4F
Amoxicillin/Clavulanate Potassium 1 tablet 03/23/25 09:00 03/23/25 09:32
Amoxicillin (875 Mg)/Clavulanate (125 Mg) Tablet PO 1 tablet
Q12 CHA Administration
Bisacodyl 10 mg 03/22/25 17:57
Bisacodyl 10 Mg Rectal Suppository RECTAL 04/19/25 17:56
[id number] PRN
constipation
Calcium Carbonate 400 mg 03/22/25 19:05
Calcium Antacid 200 Mg (Calcium Carbonate 500 Mg) Chew Tablet PO 04/19/25 19:04
DAILYPRN PRN
gerd
Cyanocobalamin 1,000 mcg 03/23/25 08:00 03/23/25 08:21
Cyanocobalamin 1,000 Mcg Tablet PO 04/20/25 07:59 1,000 mcg
DAILY CHA Administration
Dextrose 12.5 grams 03/23/25 08:48
Dextrose 50% (0.5 Grams/Ml) 50 Ml Syringe IV 04/20/25 08:47
[id number] PRN
hypoglycemia
Protocol
Enoxaparin Sodium 40 mg 03/22/25 18:00 03/22/25 20:13
Enoxaparin Sodium 40 Mg/0.4 Ml Syringe SC 04/19/25 17:59 40 mg
QPM CHA Administration
Ferrous Sulfate 325 mg 03/23/25 08:00 03/23/25 08:21
Ferrous Sulfate 325 Mg Tablet PO 04/20/25 07:59 325 mg
DAILY CHA Administration
Folic Acid 1 mg 03/23/25 08:00 03/23/25 08:21
Folic Acid 1 Mg Tablet PO 04/20/25 07:59 1 mg
DAILY CHA Administration
Heparin Sodium (Porcine) 500 unit 03/22/25 22:00
Heparin Flush Pf (100 Unit/Ml) 5 Ml Syringe IV 04/19/25 21:59
PER PROTOCOL CHA
Dextrose/Sodium Chloride 1,000 mls @ 70 mls/hr 03/23/25 09:00 03/23/25 09:32
D5/0.9% Sodium Chloride IV 1,000 mls
.[id number] CHA Administration
Magnesium Sulfate 2 gram in 50 mls @ 25 mls/hr 03/23/25 09:34 03/23/25 09:48
Magnesium Sulfate IV 03/23/25 11:33 50 mls
NOW STA Administration
Lorazepam 0.25 mg 03/22/25 18:02
Lorazepam 0.5 Mg Tablet PO 04/19/25 18:01
Q6HPRN PRN
nausea
Magnesium 168 mg 03/23/25 08:00 03/23/25 08:21
Magnesium Lactate 84 Mg Tablet PO 04/20/25 07:59 168 mg
DAILY CHA Administration
Pantoprazole Sodium 40 mg 03/23/25 08:00 03/23/25 08:21
Pantoprazole 40 Mg Delayed Release Tablet PO 04/20/25 07:59 40 mg
DAILY CHA Administration
Polyethylene Glycol 17 grams 03/22/25 17:57
Polyethylene Glycol Powder 17 Grams Packet PO 04/19/25 17:56
DAILYPRN PRN
constipation
Potassium Chloride 10 meq 03/23/25 08:00 03/23/25 08:21
Potassium Chloride 10 Meq Extended Release Tablet PO 04/20/25 07:59 10 meq
DAILY CHA Administration
Senna/Docusate Sodium 1 tablet 03/22/25 17:57
Docusate W/Senna ([place]-Colace) Tablet PO 04/19/25 17:56
BIDPRN PRN
constipation
Sodium Chloride 0 flush 03/22/25 19:00
Sodium Chloride 0.9% (Flush) Syringe IV 04/19/25 18:59
PER PROTOCOL CHA
Sucralfate 1 gram 03/22/25 22:00 03/23/25 08:21
Sucralfate 1 Gram Tablet PO 04/19/25 21:59 1 gram
ACHS CHA Administration
Trimethobenzamide HCl 200 mg 03/22/25 18:02
Trimethobenzamide 200 Mg/2 Ml Vial IM 04/19/25 18:01
Q6HPRN PRN
nausea/vomiting
Review of Systems
-
History Source: Patient
Constitutional: Reports No Symptoms
EENT: Reports No Symptoms
Respiratory: Reports Cough (productive)
Cardiac: Reports No Symptoms
GI: Reports No Symptoms
: Reports No Symptoms
Musculoskeletal: Reports No Symptoms
Skin: Reports No Symptoms
Neuro: Reports No Symptoms
Psych: Reports No Symptoms
Physical Exam
-
General: No Apparent Distress
Cardiology: Normal Sinus Rhythm
Pulmonary: Clear
GI: Soft
Extremities: Pulses Present
Skin: Warm and Dry
Psych: Calm and Intact Judgement/Insight
Labs
Lab Results
WBC 21.7 10^3/uL (4.8-10.8) H 03/23/25 04:57
RBC 2.93 10^6/uL (4.20-5.40) L 03/23/25 04:57
Hgb 8.2 g/dL (12.0-16.0) L D 03/23/25 04:57
Hct 25.1 % (37.0-47.0) L 03/23/25 04:57
MCV 85.7 fL (81.0-99.0) 03/23/25 04:57
MCH 28.0 pg (27.0-31.0) 03/23/25 04:57
MCHC 32.7 g/dL (33.0-37.0) L 03/23/25 04:57
RDW 19.5 % (11.5-14.5) H 03/23/25 04:57
Plt Count 284 10^3/uL (130-400) 03/23/25 04:57
MPV 8.9 fL (7.4-10.4) 03/23/25 04:57
Abs Immat Gran (auto) 1.8 10^3/uL (0-0.05) H 03/22/25 14:28
Absolute Neuts (auto) 29.0 10^3/uL (1.4-6.5) H 03/22/25 14:28
Absolute Lymphs (auto) 1.6 10^3/uL (1.2-3.4) 03/22/25 14:28
Absolute Monos (auto) 1.1 10^3/uL (0.1-0.6) H 03/22/25 14:28
Absolute Eos (auto) 0.0 10^3/uL (0-0.7) 03/22/25 14:28
Absolute Basos (auto) 0.1 10^3/uL (0-0.2) 03/22/25 14:28
Immature Gran % 5.4 % (0-0.5) H 03/22/25 14:28
Neutrophils % 86.3 % (42.2-75.2) H 03/22/25 14:28
Lymphocytes % 4.8 % (20.5-51.1) L 03/22/25 14:28
Monocytes % 3.3 % (1.7-9.3) 03/22/25 14:28
Eosinophils % 0.0 % (0-6) 03/22/25 14:28
Basophils % 0.2 % (0-2) 03/22/25 14:28
Creatinine 0.4 mg/dL (0.6-1.0) L 03/23/25 04:57
Vital Signs
Vital Signs
Temp Pulse Resp BP Pulse Ox
97.5 F 70 16 113/63 99
03/23/25 07:00 03/23/25 07:00 03/23/25 07:00 03/23/25 07:00 03/23/25 07:00
[2025-03-23] MEDS: CARAFATE PO (12:39)
--- NOTE | 2025-03-23 13:02 | CM ---
Addendum entered by Francesca Frank RN 03/23/25 14:54:
Patient is current with [facility]. Referral sent via [facility].
Original Note:
Reviewed the chart notes and spoke with the patient at the bedside. The patient is admitted under observational status. The VERMA was provided and explained. The had no questions with regards to the letter.
The patient resides with her daughter in a two story home with two steps to enter. The patient has a rolling walker, shower chair, and shower rail. The patient had had [facility] in the past, but no SNF. The patient confirmed her [facility] of choice [facility]. continues to be available to patient/family and is monitoring medical plan for needs at discharge.
Plan: Discharge plans will depend on the patient's progress.
--- NOTE | 2025-03-23 13:41 | CON.ID ---
Consultation
-
Date/Time Consultation Requested: March 23, 2025 0854
Date/Time Consultation Performed: March 23, 2025 1340
Requesting Provider: Dr. Renetta Malloy
Performing Provider: Dr. Ambika Miranda
Reason for Consultation: Pneumonia
Chief Complaint / Past History
Chief Complaint
Weakness and poor appetite
History of Present Illness
History obtained from the patient and daughter at bedside. She is an 85-year-old female with gastric lymphoma recently finished last cycle of mini R-CHOP on March 04 who presented to the hospital yesterday progressive weakness. Has significant loss
of appetite. Positive nausea. No abdominal pain or diarrhea. No fevers or chills. No shortness of breath. Initially no cough but now she is starting to cough in the hospital. No urine symptoms. No ill contacts. No travel history in the ER
white count noted to be 33.6. Chest x-ray shows left perihilar and left lower lobe opacity. Procalcitonin 0.28. Patient received ceftriaxone and azithromycin in the ER QTc is prolonged. Today antibiotic de-escalated to Augmentin. Patient
reports since being in the hospital she has improved. Appetite is better. Per daughter, patient is more alert today.
Past History
Additional Past Medical History:
Gastric lymphoma with peritoneal mets, on mini-RCHOP
Additional Past Surgical History:
R chest wall port placement
Left femur ORIF
Hernia repair
Allergy History:
No Known Allergies Allergy (Verified 01/17/25 17:09)
Medications Reviewed: Yes
Current Antibiotics:
s/p ceftriaxone, Azithromycin
Augmentin
Social History
Tobacco: Non-Smoker
Alcohol: None
Drug: None
Living: With Family (Daughter)
Family History
Family History: Not Pertinent
Review of Systems
Review of Systems
General: Change in Appetite; Negative Fever or Chills
HEENT: Negative Sinus Problems, Headache or Pharyngitis
Cardiovascular: Negative Chest Pain or Dyspnea
Respiratory: Cough; Negative Sputum Production
Gasteroenterology: Nausea; Negative Vomiting or Diarrhea
Genital / Urological: Negative Dysuria or Flank Pain
Endocrine: Weakness
All systems: All other systems were reviewed and were negative
Vital Signs
Temp Pulse Resp BP Pulse Ox
97 F 69 16 113/61 95
03/23/25 11:00 03/23/25 11:00 03/23/25 11:00 03/23/25 11:00 03/23/25 11:00
Physical Exam
Physical Exam
Constitutional: No Acute Distress and Chronically Ill
Head: Other (No frontal or maxillary sinus tenderness)
Eyes: No Conjunctival Hemorrhage and Sclera Anicteric
Pharynx: Benign
Oral: No Thrush and No Ulcers
Cardiovascular: Regular Rate and S1/S2
Pulmonary: Clear
Gastrointestinal: Soft, Non Tender, Non Distended and Normal Bowel Sounds
Extremities: Negative Edema
Skin: Negative Jaundice
Neurological: AO x 3
Lines: Port (RCW: no erythema)
Lab / Diagnostic Study Results
03/23/25 04:57
03/23/25 04:57
Abs Immat Gran (auto) 1.8 10^3/uL (0-0.05) H 03/22/25 14:28
Absolute Neuts (auto) 29.0 10^3/uL (1.4-6.5) H 03/22/25 14:28
Absolute Lymphs (auto) 1.6 10^3/uL (1.2-3.4) 03/22/25 14:28
Absolute Monos (auto) 1.1 10^3/uL (0.1-0.6) H 03/22/25 14:28
Absolute Basos (auto) 0.1 10^3/uL (0-0.2) 03/22/25 14:28
Immature Gran % 5.4 % (0-0.5) H 03/22/25 14:28
Neutrophils % 86.3 % (42.2-75.2) H 03/22/25 14:28
Lymphocytes % 4.8 % (20.5-51.1) L 03/22/25 14:28
Monocytes % 3.3 % (1.7-9.3) 03/22/25 14:28
Eosinophils % 0.0 % (0-6) 03/22/25 14:
Basophils % 0.2 % (0-2) 03/22/25 14:
Lactic Acid 1.2 mmol/L (0.7-2.0) 03/22/25 19:31
Procalcitonin 0.28 ng/ml (0.0-0.25) H 03/22/25 19:30
Microbiology Results
Micro:
03/22/25 19:35 Blood Culture - Pending
Blood/Venous
03/22/25 19:30 Blood Culture - Pending
Blood/Venous
03/22/25 CXR: Mild left lower lobe and left perihilar probable pneumonia.
Assessment / Plan
# Weakness/poor appetite improved
# Probable CAP
# Leukocytosis - improving
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
- Follow blood cx's
- Since pt clinically improved on abx, will continue Augmentin 875mg po bid plus doxycycline 100mg po bid x 5d through 03/26/25.
-Trend wbc
[2025-03-23] MEDS: LOVENOX 40 MG SC (16:18)
[2025-03-23 17:12] LABS: Glucose - Point of Care 152 mg/dl (70-99)
[2025-03-23] MEDS: VIBRAMYCIN 100 MG PO (21:08)
[2025-03-23 21:14] LABS: Glucose - Point of Care 181 mg/dl (70-99)
[2025-03-24] VITALS (8 sets, daily range): BP systolic 115–135; BP diastolic 66–84; PULSE 77–79; O2SAT 98
[2025-03-24] MEDS: D5/0.9% SODIUM CHLORIDE 1000 IV ×2 (03:15→15:19)
[2025-03-24 04:43] LABS: Hematocrit 25.2 % (37.0-47.0); Hemoglobin 8.4 g/dL (12.0-16.0); Mean Corp Hgb Conc. 33.3 g/dL (33.0-37.0); Mean Corpuscular Volume 84.0 fL (81.0-99.0); Platelet Count 275 10^3/uL (130-400); Red Cell Dist. Width 19.1 % (11.5-14.5)
[2025-03-24 05:05] LABS: Blood Urea Nitrogen 7 mg/dl (7-17); Calcium 7.4 mg/dl (8.4-10.2); Carbon Dioxide 31 mmol/L (22-30); Chloride 101 mmol/L (98-107); Estimated Creatinine Clearance 45 ml/min; Glucose 107 mg/dl (70-99); Magnesium 1.8 mg/dl (1.6-2.3); Potassium 3.8 mmol/L (3.5-5.1); Sodium 129 mmol/L (135-145); eGFR > 60.00
[2025-03-24 05:11] LABS: Iron < 20 ug/dl (37-170)
[2025-03-24 05:13] LABS: Total Iron Binding Capacity 105 ug/dl (265-497)
[2025-03-24 05:40] LABS: Ferritin 589.0 ng/ml (11.1-264.0)
[2025-03-24 06:11] LABS: Folate 15.8 ng/ml (2.76-20); Vitamin B12 > 1000 pg/ml (239-931)
--- NOTE | 2025-03-24 07:23 | W.PN.HOSP.TC ---
Today's Communication/Plan
-
cont therapeutic Lovenox
PPI bid
monitor H&H
PT/OT
abx as per ID
Assessment / Plan
Assessment / Plan
Physical Exam
General: pallor cachectic appearance no cyanosis or jaundice.
HEENT: Throat clear. PERRLA Normocephalic atraumatic
NECK: Supple. No JVD Carotid Bruits
RESPIRATORY: Lungs clear to auscultation. No crackles wheezes stridor
CVS: S1, S2 normal. RRR. No murmur, rub or gallop. right chest port present
ABDOMEN: Soft, non-tender. No distension. BS+/normal.
EXTREMITIES: No peripheral cyanosis, +2 pitting edema LE's b/l left calf significantly bigger than right calf
EDGE STITCHER: AOx3. No focal deficits.
IMPRESSION:
85F Lymphoma on chemo (6th tx earlier this month) hx Lt Femur fx ORIF, walker at baseline, brought in by daughter d/t c/o general malaise fatigue nausea. VSS otherwise stable on room air. ED evaluation concerning for elevated white count possibly
due to PNA vs Neulasta given after last chemo session. EKG also noted QT prolongation 500s. CXR concerning for pneumonia though improved in comparison to prior imaging, per report. Denies sob coughing sneezing. Endorses poor appetite for the
past few months. Daughter MURPHY Joseph at bedside assisting with history.
PLAN:
#High Leukocytosis suspect 2/2 recent neulasta
#Possible PNA
initial CXR noted possible pna but also noted improvement compared to prior imaging
Tele observation for now (tele for QT prolongation as below)
PT/OT eval appreciated Home Health vs SNF rehab
fall precautions
received empiric ceftriaxone and azithromycin in ED
no significant lactic acidosis
mild procal elevation
trend wbc
ID eval appreciated IV abx de-escalated to Augmentin and Doxycycline with clinical improvement. (doxycycline later discontinued d/t concerns nausea loss of appetite)
#QT prolongation 500s
since resolved following repletion electrolytes
#Mild Hyponatremia
#Hypoglycemia
suspect d/t poor oral intake
IVF D5WNS
monitor
#N/V appetite loss
likely 2/2 chemo vs malignancy
Ensure supplementation
compazine prn nausea (required once morning 03/24 since resolved)
cont home protonix carafate
appetite/nausea overall improved
#Acute B/l extensive DVTs
#LE swelling pitting edema asymmetry
#hypoalbuminemia also likely contributing to swelling
#Anemia of Chronic Disease
#Possible Hemodilution from IVF
Venous duplex pos for extensive b/l DVTs
CT angio chest/abd/pelvis appreciated questionable cystitis (denies dysuria) already on abx as above
Noted patient was here October 2024 for GIB that lead to discovery of Lymphoma
Protonix increased to BID to reduce risk recurrence bleed.
Trial therapeutic Lovenox started, tolerating so far, eventual transition to DOAC if remains stable
DVT PPx Therapeutic Lovenox
DVT ppx on therapeutic Lovenox as above
DNR
Discussed with patient and patient's Daughter POA same name Opal
I spent a total of 40 minutes with the patient or on the floor. More than 50% of this time involved counseling and coordination of care.
Anticipated Discharge: 24 - 48 hours
Subjective/Interval History
-
Date of Service: March 24, 2025
No acute distress, sitting up comfortably in chair. overall reports feeling well.
Objective Data
-
Labs:
Laboratory Results
03/24/25
04:27
WBC 16.9 H
Hgb 8.4 L
Hct 25.2 L
Plt Count 275
Sodium 129 L
Potassium 3.8
Chloride 101
Carbon Dioxide 31 H
BUN 7
Creatinine 0.3 L
Glucose 107 H
Calcium 7.4 L
Vital Signs:
Vital Signs
Temp Pulse Resp BP Pulse Ox
98.1 F 74 18 120/67 99
03/24/25 03:21 03/24/25 03:21 03/24/25 03:21 03/24/25 03:21 03/24/25 03:21
I&O
03/23/25 03/24/25 03/25/25
06:59 06:59 06:59
Intake Total 120 / 120 690 / 690
Balance 120 / 120 690 / 690
--- NOTE | 2025-03-24 07:32 | W.PN.ONC ---
Today's Communication / Plan
-
Continue antibiotics as per primary team and ID
WBC trending down, will continue to follow
Continue PPI after discharge
Restaging PET scan currently scheduled for 04/14 per patient
Lovenox started by primary team for b/l LE DVT, likely related to hypercoagulability of malignancy and inactivity. At discharge, recommend transition to Eliquis 10mg BID followed by 5mg BID.
Will continue follow along while admitted.
Impression
Impression
Gastric Lymphoma s/p 6 cycles of mini RCHOP - last treatment 03/04, last growth stimulating factor 03/08.
LLL Pneumonia seen on Chest Xray
Leukocytosis - improving WBC 16.9 today
Patient has poor PO intake at home, improved in hospital
New b/l LE DVT on doppler US, patient started on lovenox yesterday
03/23 CT CAP revealed small right pleural effusion, adjacent dependent right lower lobe patchy consolidation. Scattered patchy subpleural areas of consolidation throughout the left lower lobe with nodular areas of consolidation measuring up to 2.3
cm, likely new from prior.
Plan
Plan
Continue antibiotics as per primary team for pneumonia
WBC trending down, will continue to follow
Continue PPI after discharge
Restaging PET scan currently scheduled for April 14 per patient
Lovenox started by primary team for b/l LE DVT, likely related to hypercoagulability of malignancy and inactivity. At discharge, recommend transition to Eliquis 10mg BID followed by 5mg BID.
Will continue follow along while admitted.
Subjective/Objective
Subjective/Objective
Patient seen today at the bedside. Patient is feeling well and has no current complaints. Her daughter helped her order breakfast and she is looking forward to the pancakes and guerrero. Patient denies all ROS.
Physical Exam
General: AOx3. Not in acute distress
Extremities: +2 pitting edema b/l LE left > right
Vital Signs:
Vital Signs
Temp Pulse Resp BP Pulse Ox
98.1 F 74 18 120/67 99
03/24/25 03:21 03/24/25 03:21 03/24/25 03:21 03/24/25 03:21 03/24/25 03:21
Lab Results:
Laboratory Data
WBC 16.9 10^3/uL (4.8-10.8) H 03/24/25 04:27
Hgb 8.4 g/dL (12.0-16.0) L 03/24/25 04:27
Plt Count 275 10^3/uL (130-400) 03/24/25 04:27
eGFR > 60.00 03/24/25 04:27
[2025-03-24] MEDS: CARAFATE 1 GRAM PO ×3 (08:44→21:51)
[2025-03-24] MEDS: VIBRAMYCIN 100 MG PO (09:30)
[2025-03-24] MEDS: KCL 10 MEQ PO (09:31)
[2025-03-24] MEDS: VITAMIN B-12 1000 MCG PO (09:31)
[2025-03-24] MEDS: FEOSOL 325 MG PO (09:31)
[2025-03-24] MEDS: FOLVITE 1 MG PO (09:31)
[2025-03-24] MEDS: AUGMENTIN 875 MG/125 MG 1 TABLET PO ×2 (09:31→20:48)
[2025-03-24] MEDS: PROTONIX 40 MG PO ×2 (09:31→20:48)
[2025-03-24] MEDS: MAG-TAB SR 168 MG PO (09:31)
[2025-03-24] MEDS: LOVENOX 40 MG SC ×2 (09:32→20:48)
[2025-03-24] MEDS: COMPAZINE 5 MG IV (10:20)
[2025-03-24] MEDS: CARAFATE PO (12:33)
[2025-03-24 13:52] LABS: Glucose - Point of Care 109 mg/dl (70-99)
--- NOTE | 2025-03-24 14:53 | W.PN.ID1 ---
Date of Service
Date of Service: March 24, 2025
Today's Communication
- DC doxycycline: possible source of N/V this am and recurrence of poor appetite.
- Continue Augmentin 875mg po bid x 5d through 03/26/25.
Assessment / Plan
# Probable CAP
# Leukocytosis - improving
# Weakness/poor appetite
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
- blood cx's neg to date.
- DC doxycycline: possible source of N/V this am and recurrence of poor appetite.
- Continue Augmentin 875mg po bid x 5d through 03/26/25.
-Trend wbc
Chief Complaint
-: Pneumonia
Subjective / Review of Systems
Had n/v this am. Appetite poor again.
Vital Signs / Physical Exam
Vital Signs
Vital Signs
Temp Pulse Resp BP Pulse Ox
97.7 F 77 16 124/79 98
03/24/25 11:15 03/24/25 11:15 03/24/25 11:15 03/24/25 11:15 03/24/25 11:15
Physical Exam
Constitutional: Chronically Ill
Eyes: No Conjunctival Hemorrhage and Sclera Anicteric
Cardiovascular: Regular Rate and S1/S2
Pulmonary: Clear
Gastrointestinal: Soft, Non Tender, Non Distended and Normal Bowel Sounds
Genito-Urinary: Negative CVA Tenderness
Neurological: Other (drowsy)
Objective Data
Lab Data
Lab Results
03/24/25 04:27
03/24/25 04:27
Estimated Creat Clear 45 ml/min 03/24/25 04:27
Lactic Acid 1.2 mmol/L (0.7-2.0) 03/22/25 19:31
Total Bilirubin 0.5 mg/dl (0.2-1.3) 03/22/25 14:28
AST 22 U/L (14-36) 03/22/25 14:28
ALT 14 U/L (0-35) 03/22/25 14:28
Alkaline Phosphatase 156 U/L (38-126) H 03/22/25 14:28
Most recent labs reviewed.
Micro Results:
03/22/25 19:35 Blood Culture - Preliminary
Blood/Venous No Growth in 24 hours- Final report to follow
03/22/25 19:30 Blood Culture - Preliminary
Blood/Venous No Growth in 24 hours- Final report to follow
03/22/25 CXR: Mild left lower lobe and left perihilar probable pneumonia.
--- NOTE | 2025-03-24 16:09 | CM ---
Reviewed the chart notes and spoke with the patient and daughter at the bedside. Patient is current with [facility] ([facility] CM continues to be available to patient/family and is monitoring medical plan for needs at discharge.
Plan: Discharge to home with resumption of [facility].
Fax report to: [phone]
[2025-03-24 17:02] LABS: Glucose - Point of Care 224 mg/dl (70-99)
[2025-03-24 21:11] LABS: Glucose - Point of Care 115 mg/dl (70-99)
[2025-03-25 03:08] VITALS: BP 132/71
[2025-03-25] MEDS: D5/0.9% SODIUM CHLORIDE 1000 IV ×2 (05:02→18:12)
[2025-03-25 06:00] VITALS: BMI 17.6
[2025-03-25 06:37] LABS: Hematocrit 27.9 % (37.0-47.0); Hemoglobin 9.2 g/dL (12.0-16.0); Mean Corp Hgb Conc. 33.0 g/dL (33.0-37.0); Mean Corpuscular Volume 84.3 fL (81.0-99.0); Platelet Count 260 10^3/uL (130-400); Red Cell Dist. Width 18.6 % (11.5-14.5)
--- NOTE | 2025-03-25 06:48 | W.PN.HOSP.TC ---
Today's Communication/Plan
-
Lovenox transition to Eliquis
monitor H&H
discharge home with home services tomorrow if remains stable/continues to improve
Assessment / Plan
Assessment / Plan
Physical Exam
General: pallor cachectic appearance no cyanosis or jaundice.
HEENT: Throat clear. PERRLA Normocephalic atraumatic
NECK: Supple. No JVD Carotid Bruits
RESPIRATORY: Lungs clear to auscultation. No crackles wheezes stridor
CVS: S1, S2 normal. RRR. No murmur, rub or gallop. right chest port present
ABDOMEN: Soft, non-tender. No distension. BS+/normal.
EXTREMITIES: No peripheral cyanosis, +2 pitting edema LE's b/l left calf significantly bigger than right calf
SERVICE ASSOCIATE: AOx3. No focal deficits.
IMPRESSION:
85F Lymphoma on chemo (6th tx earlier this month) hx Lt Femur fx ORIF, walker at baseline, brought in by daughter d/t c/o general malaise fatigue nausea. VSS otherwise stable on room air. ED evaluation concerning for elevated white count possibly
due to PNA vs Neulasta given after last chemo session. EKG also noted QT prolongation 500s. CXR concerning for pneumonia though improved in comparison to prior imaging, per report. Denies sob coughing sneezing. Endorses poor appetite for the
past few months. Daughter MURPHY Joseph at bedside assisting with history.
PLAN:
#High Leukocytosis suspect 2/2 recent neulasta
#Community Acquired PNA
initial CXR noted possible pna but also noted improvement compared to prior imaging
Tele observation for now (tele for QT prolongation as below)
PT/OT eval appreciated Home Health vs SNF rehab
fall precautions
received empiric ceftriaxone and azithromycin in ED
no significant lactic acidosis
mild procal elevation
wbc trending down
ID eval appreciated IV abx de-escalated to Augmentin and Doxycycline with clinical improvement. (doxycycline later discontinued d/t concerns nausea loss of appetite)
Augmentin to cont thru 03/28/25 as per ID
#QT prolongation 500s
since resolved following repletion electrolytes
#Mild Hyponatremia
#Hypoglycemia
suspect d/t poor oral intake
IVF D5WNS
monitor
#N/V appetite loss
likely 2/2 chemo vs malignancy
Ensure supplementation
compazine prn nausea (required once morning 03/24 since resolved)
cont home protonix carafate
appetite/nausea overall improved
#Acute B/l extensive DVTs
#LE swelling pitting edema asymmetry
#hypoalbuminemia also likely contributing to swelling
#Anemia of Chronic Disease
#Possible Hemodilution from IVF
Venous duplex pos for extensive b/l DVTs
CT angio chest/abd/pelvis appreciated questionable cystitis (denies dysuria) already on abx as above
Noted patient was here October 2024 for GIB that lead to discovery of Lymphoma
Protonix increased to BID to reduce risk recurrence bleed.
Trial therapeutic Lovenox started, tolerating so far, transitioned to Eliquis loading dose 03/25/25-03/31/25 then maintenance dose 5 mg bid from then on.
severe protein-calorie malnutrition
Ensure supplementation
stage 3 sacrum pressure injury, POA
cont local wound care
DVT ppx Eliquis
DNR
Discussed with patient and patient's Daughter POA same name Opal
I spent a total of 39 minutes with the patient or on the floor. More than 50% of this time involved counseling and coordination of care.
Anticipated Discharge: Within 24 hours
Subjective/Interval History
-
Date of Service: March 25, 2025
Objective Data
-
Labs:
Laboratory Results
03/25/25
06:24
WBC 13.0 H
Hgb 9.2 L
Hct 27.9 L
Plt Count 260
Sodium Pending
Potassium Pending
Chloride Pending
Carbon Dioxide Pending
BUN Pending
Creatinine Pending
Glucose Pending
Calcium Pending
Vital Signs:
Vital Signs
Temp Pulse Resp BP Pulse Ox
97.5 F 71 16 132/71 99
03/25/25 03:08 03/25/25 03:08 03/25/25 03:08 03/25/25 03:08 03/25/25 03:08
I&O
03/23/25 03/24/25 03/25/25
06:59 06:59 06:59
Intake Total 120 / 120 690 / 690 660 / 660
Balance 120 / 120 690 / 690 660 / 660
--- NOTE | 2025-03-25 06:57 | PN.CDI ---
CDI
- -
CDI:
Physician Documentation Request
Admit Date: 03/23/25 15:30
Dear Doctor Mellissa,
Please review the following and provide your response in the progress notes.
Clinical Indicators:
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
#Per current clinical data pt with 2-13 lb weight loss (score 4)-records
#...show weight of 145 lbs 14.4 oz from 10-31-24; 92 lbs 1.6 oz on 03-23-25
#...(reflects a loss of 53 lbs, 36.5% wt change, 4.5 months)
#...weight of 100 lbs from January 13, 2025, reflecting a loss of 8 lbs
#...(8% wt change, 2 months)-significant.
#...able to observe appearance of multiple site fat/muscle loss (all severe)
#...including temples, orbital, buccal, clavicle, visible ribs, quads, calves.
#Due to observations of fat/muscle loss and intakes of <75% for > 1 month,
#...pt meeting criteria for severe protein-calorie malnutrition
#...(ASPEN/AND guidelines, chronic illness).
Based on the above information and your assessment, which of the following most accurately represents the patient's nutritional status?
Severe protein calorie malnutrition of chronic illness
Other (please specify)
Heath Criteria (ACP Hospitalist 2017)
2 or more criteria must be present for either
non severe or severe malnutrition
Note that the criteria differs related to the
presence of an acute or chronic illness
Chronic Illness
Energy Intake Non Severe: <75% for >1 month
Severe: <75% for >1 month
Weight Loss Non Severe: 5% over 1 month
7.5% over 3 months
10% over 6 months
20% over 1 year
Severe: >5% over 1 month
>7.5% over 3 months
>10% over 6 months
>20% over 1 year
Body Fat Non Severe: Mild Loss
Severe: Severe Loss
Muscle Mass Non Severe: Mild Loss
Severe: Severe Loss
Use of terms such as suspected, likely, concern for, or probable (associated with a specific diagnosis that is being evaluated, monitored, or treated as if it exists) are acceptable and can be coded in the inpatient setting, when documented at the
time of discharge.
Thank you,
Flores Jackson RN BSN CCDS
CDI Specialist
Please contact via tiger text
Please use your independent medical judgment in providing your response.
[2025-03-25 07:00] VITALS: BP 137/80
[2025-03-25 07:01] LABS: Blood Urea Nitrogen 2 mg/dl (7-17); Calcium 7.4 mg/dl (8.4-10.2); Carbon Dioxide 31 mmol/L (22-30); Chloride 101 mmol/L (98-107); Estimated Creatinine Clearance 45 ml/min; Glucose 74 mg/dl (70-99); Magnesium 1.6 mg/dl (1.6-2.3); Potassium 3.1 mmol/L (3.5-5.1); Sodium 129 mmol/L (135-145); eGFR > 60.00
--- NOTE | 2025-03-25 07:04 | PN.CDI ---
CDI
- -
CDI:
Physician Documentation Request
Admit Date: 03/23/25 15:30
Dear Doctor Mellissa,
Please review the following and provide your response in the progress notes.
Clinical Indicators:
Nurses' Notes, 03/22
Selected Entries
03/22/25
22:50
Pressure injury stage [Present on admission Sacrum] Stage 3
Physician documentation of the type and location of wounds is required for compliant documentation. Based on the above clinical findings and your assessment, please provide the following in your progress note:
Yes, stage 3 sacrum pressure injury, POA
No, stage 3 sacrum pressure injury
Other (please specify)
1. Location of the ulcer/wound, including laterality.
2. Type (etiology) of ulcer/wound:
- Diabetic ulcer
- Arterial (ischemic) ulcer
- Traumatic wound
- Venous stasis ulcer
- Pressure (decubitus) ulcer
3. For a pressure ulcer, please also include the stage* of the ulcer:
- Stage 1 - Skin intact, non-blanchable redness
- Stage 2 - Partial thickness loss of dermis, includes intact or open blister
- Stage 3 - Full thickness tissue not including bone, tendon or muscle
- Stage 4 - Full thickness tissue loss, including exposed bone, tendon or muscle
- Unstageable - Full thickness loss in which the base of the ulcer is covered by slough (yellow, christy, asencio, green or brown) and/or eschar (christy, brown or black) in the wound bed.
- Unable to determine
Use of terms such as suspected, likely, concern for, or probable (associated with a specific diagnosis that is being evaluated, monitored, or treated as if it exists) are acceptable and can be coded in the inpatient setting, when documented at the
time of discharge.
Thank you,
Flores Jackson RN BSN CCDS
CDI Specialist
Please contact via tiger text
Please use your independent medical judgment in providing your response.
*Source: National Pressure Ulcer Advisory Panel (NPUAP)
[2025-03-25 08:09] LABS: Glucose - Point of Care 85 mg/dl (70-99)
--- NOTE | 2025-03-25 09:08 | W.PN.ONC ---
Today's Communication / Plan
-
Continue antibiotics as per primary team for pneumonia
WBC trending down, will continue to follow
Continue PPI after discharge
Restaging PET scan currently scheduled for April 14 per patient- would consider possible direct visualization and biopsy for restaging in conjunction with PET
b/l LE DVT, likely related to hypercoagulability of malignancy and inactivity. Transition to Eliquis 10mg BID followed by 5mg BID.
Will continue follow along while admitted.
Impression
Impression
Gastric Lymphoma s/p 6 cycles of mini RCHOP - last treatment 03/04, last growth stimulating factor 03/08.
LLL Pneumonia seen on Chest Xray
Leukocytosis - improving WBC 13.0 today
Patient has poor PO intake at home, improved in hospital
New b/l LE DVT on doppler US, patient started on lovenox, transitioned to Eliquis
03/23 CT CAP revealed small right pleural effusion, adjacent dependent right lower lobe patchy consolidation. Scattered patchy subpleural areas of consolidation throughout the left lower lobe with nodular areas of consolidation measuring up to 2.3
cm, likely new from prior.
Plan
Plan
Continue antibiotics as per primary team for pneumonia
WBC trending down, will continue to follow
Continue PPI after discharge
Restaging PET scan currently scheduled for April 14 per patient- would consider possible direct visualization and biopsy for restaging in conjunction with PET
b/l LE DVT, likely related to hypercoagulability of malignancy and inactivity. Transition to Eliquis 10mg BID followed by 5mg BID.
Will continue follow along while admitted.
Subjective/Objective
Subjective/Objective
Patient seen at the bedside. Patient is feeling well today and denies any nausea. Patient has been eating well while admitted. Patient denies all other ROS
Physical
General: not in acute distress
Cardiovascular: RRR
Respiratory: normal breath sounds
Abdominal: soft, nontender
Vital Signs:
Vital Signs
Temp Pulse Resp BP Pulse Ox
97.5 F 71 16 132/71 99
03/25/25 03:08 03/25/25 03:08 03/25/25 03:08 03/25/25 03:08 03/25/25 03:08
Lab Results:
Laboratory Data
WBC 13.0 10^3/uL (4.8-10.8) H 03/25/25 06:24
Hgb 9.2 g/dL (12.0-16.0) L 03/25/25 06:24
Plt Count 260 10^3/uL (130-400) 03/25/25 06:24
eGFR > 60.00 03/25/25 06:24
[2025-03-25] MEDS: LOVENOX SC (09:31)
[2025-03-25] MEDS: MAG-TAB SR 168 MG PO (09:32)
[2025-03-25] MEDS: ELIQUIS 10 MG PO ×2 (09:32→20:20)
[2025-03-25] MEDS: PROTONIX 40 MG PO ×2 (09:32→20:20)
[2025-03-25] MEDS: FEOSOL 325 MG PO (09:33)
[2025-03-25] MEDS: CARAFATE 1 GRAM PO ×4 (09:33→21:13)
[2025-03-25] MEDS: KCL 10 MEQ PO (09:33)
[2025-03-25] MEDS: AUGMENTIN 875 MG/125 MG 1 TABLET PO ×2 (09:33→20:20)
[2025-03-25] MEDS: FOLVITE 1 MG PO (09:33)
[2025-03-25] MEDS: VITAMIN B-12 1000 MCG PO (09:33)
[2025-03-25 11:00] VITALS: BP 123/67
[2025-03-25] MEDS: KCL 40 MEQ PO (11:17)
--- NOTE | 2025-03-25 11:18 | CM ---
Reviewed the chart notes. CM continues to be available to patient/family and is monitoring medical plan for needs at discharge.
Plan: Discharge to home with resumption of [facility].
Fax report to: [phone]
[2025-03-25 15:07] VITALS: BP 113/80
--- NOTE | 2025-03-25 15:07 | W.PN.ID1 ---
Date of Service
Date of Service: March 25, 2025
Today's Communication
Continue Augmentin 875mg po bid x 7d through 03/28/25.
Assessment / Plan
# CAP
# Leukocytosis - improving
# Weakness/poor appetite
# Acute BLE DVT
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
- blood cx's neg to date.
- Nausea/appetite improved off doxcycyline.
- Continue Augmentin 875mg po bid x 7d through 03/28/25.
-Trend wbc
Chief Complaint
-: Pneumonia
Subjective / Review of Systems
Nausea and appetite improved.
No cough/SOB.
Vital Signs / Physical Exam
Vital Signs
Vital Signs
Temp Pulse Resp BP Pulse Ox
97.4 F 73 16 123/67 95
03/25/25 11:00 03/25/25 11:00 03/25/25 11:00 03/25/25 11:00 03/25/25 11:00
Physical Exam
Constitutional: Chronically Ill
Cardiovascular: Regular Rate and S1/S2
Pulmonary: Clear
Gastrointestinal: Soft, Non Tender and Non Distended
Extremities: Edema (BLE)
Neurological: AO x 3
Objective Data
Lab Data
Lab Results
03/25/25 06:24
03/25/25 06:24
Estimated Creat Clear 45 ml/min 03/25/25 06:24
Lactic Acid 1.2 mmol/L (0.7-2.0) 03/22/25 19:31
Total Bilirubin 0.5 mg/dl (0.2-1.3) 03/22/25 14:28
AST 22 U/L (14-36) 03/22/25 14:28
ALT 14 U/L (0-35) 03/22/25 14:28
Alkaline Phosphatase 156 U/L (38-126) H 03/22/25 14:28
Most recent labs reviewed.
Micro Results:
03/22/25 19:35 Blood Culture - Preliminary
Blood/Venous No Growth in 48 hours- Final report to follow
03/22/25 19:30 Blood Culture - Preliminary
Blood/Venous No Growth in 48 hours- Final report to follow
03/23/25 CT c/a/p: Small right pleural effusion. Adjacent dependent right lower lobe patchy consolidation may reflect atelectasis or pneumonia. Scattered patchy subpleural areas of consolidation throughout the left lower lobe with nodular areas of
consolidation measuring up to 2.3 cm, likely new from prior and may reflect areas of infectious/inflammation versus neoplasm.
03/22/25 CXR: Mild left lower lobe and left perihilar probable pneumonia.
[2025-03-25 19:32] VITALS: BP 120/71
[2025-03-25 23:29] VITALS: BP 135/82
[2025-03-26 03:00] VITALS: BP 138/81
[2025-03-26 05:28] LABS: Hematocrit 27.7 % (37.0-47.0); Hemoglobin 9.3 g/dL (12.0-16.0); Mean Corp Hgb Conc. 33.6 g/dL (33.0-37.0); Mean Corpuscular Volume 84.5 fL (81.0-99.0); Platelet Count 254 10^3/uL (130-400); Red Cell Dist. Width 18.6 % (11.5-14.5)
[2025-03-26 05:50] LABS: Blood Urea Nitrogen 2 mg/dl (7-17); Calcium 7.6 mg/dl (8.4-10.2); Carbon Dioxide 29 mmol/L (22-30); Chloride 101 mmol/L (98-107); Estimated Creatinine Clearance 49 ml/min; Glucose 116 mg/dl (70-99); Magnesium 1.5 mg/dl (1.6-2.3); Potassium 3.0 mmol/L (3.5-5.1); Sodium 129 mmol/L (135-145); eGFR > 60.00
[2025-03-26 07:56] VITALS: BP 116/73
--- NOTE | 2025-03-26 08:33 | W.PN.HOSP.TC ---
Today's Communication/Plan
-
replete electrolytes
Monitor H&H
possible discharge tomorrow home with home services if remains stable/cont to improve
Assessment / Plan
Assessment / Plan
Physical Exam
General: pallor cachectic appearance no cyanosis or jaundice.
HEENT: Throat clear. PERRLA Normocephalic atraumatic
NECK: Supple. No JVD Carotid Bruits
RESPIRATORY: Lungs clear to auscultation. No crackles wheezes stridor
CVS: S1, S2 normal. RRR. No murmur, rub or gallop. right chest port present
ABDOMEN: Soft, non-tender. No distension. BS+/normal.
EXTREMITIES: No peripheral cyanosis, +2 pitting edema LE's b/l left calf significantly bigger than right calf
FOUNDER / CEO: AOx3. No focal deficits.
IMPRESSION:
85F Lymphoma on chemo (6th tx earlier this month) hx Lt Femur fx ORIF, walker at baseline, brought in by daughter d/t c/o general malaise fatigue nausea. VSS otherwise stable on room air. ED evaluation concerning for elevated white count possibly
due to PNA vs Neulasta given after last chemo session. EKG also noted QT prolongation 500s. CXR concerning for pneumonia though improved in comparison to prior imaging, per report. Denies sob coughing sneezing. Endorses poor appetite for the
past few months. Daughter MURPHY Joseph at bedside assisted with history.
PLAN:
#High Leukocytosis suspect 2/2 recent neulasta
#Community Acquired PNA
initial CXR noted possible pna but also noted improvement compared to prior imaging
Tele observation for now (tele for QT prolongation as below)
PT/OT eval appreciated Home Health vs SNF rehab
fall precautions
received empiric ceftriaxone and azithromycin in ED
no significant lactic acidosis
mild procal elevation
wbc trending down
ID eval appreciated IV abx de-escalated to Augmentin and Doxycycline with clinical improvement. (doxycycline later discontinued d/t concerns nausea loss of appetite)
Augmentin to cont thru 03/28/25 as per ID
#QT prolongation 500s
since resolved following repletion electrolytes
#Mild Hyponatremia
#Hypoglycemia
suspect d/t poor oral intake
IVF D5WNS
monitor
#Hypokalemia
#Hypophosphatemia
#Hypomagnesemia
monitor and replete as necessary
#N/V appetite loss
likely 2/2 chemo vs malignancy
Ensure supplementation
compazine prn nausea (required once morning 03/24 since resolved)
cont home protonix carafate
appetite/nausea overall improved
#Acute B/l extensive DVTs
#LE swelling pitting edema asymmetry
#hypoalbuminemia also likely contributing to swelling
#Anemia of Chronic Disease
#Possible Hemodilution from IVF
Venous duplex pos for extensive b/l DVTs
CT angio chest/abd/pelvis appreciated questionable cystitis (denies dysuria) already on abx as above
Noted patient was here October 2024 for GIB that lead to discovery of Lymphoma
Protonix increased to BID to reduce risk recurrence bleed.
Trial therapeutic Lovenox started, tolerating so far, transitioned to Eliquis loading dose 03/25/25-03/31/25 then maintenance dose 5 mg bid from then on.
severe protein-calorie malnutrition
Ensure supplementation
stage 3 sacrum pressure injury, POA
cont local wound care
DVT ppx Eliquis
DNR
Discussed with patient and patient's Daughter POA same name Opal
I spent a total of 41 minutes with the patient or on the floor. More than 50% of this time involved counseling and coordination of care.
Anticipated Discharge: Within 24 hours
Subjective/Interval History
-
Date of Service: March 26, 2025
no aute distress, overall reports feeling well. Denies new acute issues at this time.
Objective Data
-
Labs:
Laboratory Results
03/26/25
05:18
WBC 14.6 H
Hgb 9.3 L
Hct 27.7 L
Plt Count 254
Sodium 129 L
Potassium 3.0 L
Chloride 101
Carbon Dioxide 29
BUN 2 L
Creatinine 0.2 L
Glucose 116 H
Calcium 7.6 L
Vital Signs:
Vital Signs
Temp Pulse Resp BP Pulse Ox
98.2 F 78 16 116/73 100
03/26/25 07:56 03/26/25 07:56 03/26/25 07:56 03/26/25 07:56 03/26/25 07:56
I&O
03/25/25 03/26/25 03/27/25
06:59 06:59 06:59
Intake Total 1140 / 1140 2189 / 2189
Balance 1140 / 1140 2189 / 2189
[2025-03-26] MEDS: D5/0.9% SODIUM CHLORIDE 1000 IV ×2 (08:46→23:07)
[2025-03-26] MEDS: MAG-TAB SR 168 MG PO (09:10)
--- NOTE | 2025-03-26 09:11 | W.PN.ONC ---
Today's Communication / Plan
-
Continue antibiotics as per primary team for pneumonia
WBC trending down since admission
Continue PPI after discharge
Restaging PET scan currently scheduled for April 14 per patient- would consider possible direct visualization and biopsy for restaging in conjunction with PET
b/l LE DVT, likely related to hypercoagulability of malignancy and inactivity. Transition to Eliquis 10mg BID followed by 5mg BID.
Planned for discharge today
Impression
Impression
Gastric Lymphoma s/p 6 cycles of mini RCHOP - last treatment 03/04, last growth stimulating factor 03/08.
LLL Pneumonia seen on Chest Xray
Leukocytosis - improving
Patient has poor PO intake at home, improved in hospital
New b/l LE DVT on doppler US, patient started on lovenox, transitioned to Eliquis
03/23 CT CAP revealed small right pleural effusion, adjacent dependent right lower lobe patchy consolidation. Scattered patchy subpleural areas of consolidation throughout the left lower lobe with nodular areas of consolidation measuring up to 2.3
cm, likely new from prior.
Plan
Plan
Continue antibiotics as per primary team for pneumonia
WBC trending down since admission
Continue PPI after discharge
Restaging PET scan currently scheduled for April 14 per patient- would consider possible direct visualization and biopsy for restaging in conjunction with PET
b/l LE DVT, likely related to hypercoagulability of malignancy and inactivity. Transition to Eliquis 10mg BID followed by 5mg BID.
Will continue follow along while admitted.
Subjective/Objective
Subjective/Objective
Patient seen at the bedside. Patient denies all ROS other than not sleeping well while here.
Physical
General: not in acute distress
Cardiovascular: RRR
Respiratory: normal breath sounds
Abdominal: soft, nontender
Extremities: Edema b/l
Vital Signs:
Vital Signs
Temp Pulse Resp BP Pulse Ox
98.2 F 78 16 116/73 100
03/26/25 07:56 03/26/25 07:56 03/26/25 07:56 03/26/25 07:56 03/26/25 07:56
Lab Results:
Laboratory Data
WBC 14.6 10^3/uL (4.8-10.8) H 03/26/25 05:18
Hgb 9.3 g/dL (12.0-16.0) L 03/26/25 05:18
Plt Count 254 10^3/uL (130-400) 03/26/25 05:18
eGFR > 60.00 03/26/25 05:18
[2025-03-26] MEDS: VITAMIN B-12 1000 MCG PO (09:12)
[2025-03-26] MEDS: FOLVITE 1 MG PO (09:12)
[2025-03-26] MEDS: FEOSOL 325 MG PO (09:12)
[2025-03-26] MEDS: KCL 20 MEQ PO ×2 (09:12→10:43)
[2025-03-26] MEDS: ELIQUIS 10 MG PO ×2 (09:12→21:04)
[2025-03-26] MEDS: AUGMENTIN 875 MG/125 MG 1 TABLET PO ×2 (09:12→21:04)
[2025-03-26] MEDS: PROTONIX 40 MG PO ×2 (09:12→21:05)
[2025-03-26] MEDS: CARAFATE 1 GRAM PO ×4 (09:14→21:05)
[2025-03-26] MEDS: MAGNESIUM SULFATE 100 IV (10:20)
[2025-03-26] MEDS: POTASSIUM PHOSPHATE 259.0909 MEQ IV (10:21)
--- NOTE | 2025-03-26 10:58 | CM ---
Reviewed the chart notes and spoke with the patient at the bedside. IMM reviewed. CM continues to be available to patient/family and is monitoring medical plan for needs at discharge.
Plan: Discharge to home with resumption of [facility]. Patient's daughter to provide transportation.
Fax report to: [phone]
[2025-03-26 11:38] VITALS: BP 120/70
--- NOTE | 2025-03-26 13:50 | W.PN.ID1 ---
Date of Service
Date of Service: March 26, 2025
Today's Communication
Continue Augmentin 875mg po bid x 7d through 03/28/25.
ID will sign off.
Assessment / Plan
# CAP
# Leukocytosis - overall improved
# Weakness/poor appetite
# Acute BLE DVT
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
- blood cx's neg to date.
- Nausea/appetite improved off doxycycline.
- Continue Augmentin 875mg po bid x 7d through 03/28/25.
ID will sign off.
Chief Complaint
-: Pneumonia
Subjective / Review of Systems
No new complaints. No nausea.
Vital Signs / Physical Exam
Vital Signs
Vital Signs
Temp Pulse Resp BP Pulse Ox
97.5 F 73 16 120/70 99
03/26/25 11:38 03/26/25 11:38 03/26/25 11:38 03/26/25 11:38 03/26/25 11:38
Physical Exam
Constitutional: Chronically Ill
Cardiovascular: Regular Rate and S1/S2
Pulmonary: Clear
Gastrointestinal: Soft, Non Tender and Non Distended
Extremities: Edema (BLE)
Neurological: AO x 3
Objective Data
Lab Data
Lab Results
03/26/25 05:18
03/26/25 05:18
Estimated Creat Clear 49 ml/min 03/26/25 05:18
Lactic Acid 1.2 mmol/L (0.7-2.0) 03/22/25 19:31
Total Bilirubin 0.5 mg/dl (0.2-1.3) 03/22/25 14:28
AST 22 U/L (14-36) 03/22/25 14:28
ALT 14 U/L (0-35) 03/22/25 14:28
Alkaline Phosphatase 156 U/L (38-126) H 03/22/25 14:28
Most recent labs reviewed.
Micro Results:
03/22/25 19:35 Blood Culture - Preliminary
Blood/Venous No Growth in 72 hours- Final report to follow
03/22/25 19:30 Blood Culture - Preliminary
Blood/Venous No Growth in 72 hours- Final report to follow
03/23/25 CT c/a/p: Small right pleural effusion. Adjacent dependent right lower lobe patchy consolidation may reflect atelectasis or pneumonia. Scattered patchy subpleural areas of consolidation throughout the left lower lobe with nodular areas of
consolidation measuring up to 2.3 cm, likely new from prior and may reflect areas of infectious/inflammation versus neoplasm.
03/22/25 CXR: Mild left lower lobe and left perihilar probable pneumonia.
[2025-03-26 15:43] VITALS: BP 127/82
[2025-03-26] MEDS: MAGNESIUM OXIDE 500 MG PO (21:04)
[2025-03-26 23:45] VITALS: BP 139/84
[2025-03-27 03:10] VITALS: BP 120/63
[2025-03-27 05:00] LABS: Hematocrit 25.8 % (37.0-47.0); Hemoglobin 8.7 g/dL (12.0-16.0); Mean Corp Hgb Conc. 33.7 g/dL (33.0-37.0); Mean Corpuscular Volume 84.9 fL (81.0-99.0); Platelet Count 225 10^3/uL (130-400); Red Cell Dist. Width 19.0 % (11.5-14.5)
[2025-03-27 05:21] LABS: Blood Urea Nitrogen < 2 mg/dl (7-17); Calcium 7.1 mg/dl (8.4-10.2); Carbon Dioxide 32 mmol/L (22-30); Chloride 103 mmol/L (98-107); Estimated Creatinine Clearance 49 ml/min; Glucose 86 mg/dl (70-99); Magnesium 2.1 mg/dl (1.6-2.3); Potassium 3.3 mmol/L (3.5-5.1); Sodium 132 mmol/L (135-145); eGFR > 60.00
[2025-03-27 07:55] VITALS: BP 117/65
--- NOTE | 2025-03-27 08:35 | W.PN.HOSP.TC ---
Today's Communication/Plan
-
discharge
Assessment / Plan
Assessment / Plan
Physical Exam
General: pallor cachectic appearance no cyanosis or jaundice.
HEENT: Throat clear. PERRLA Normocephalic atraumatic
NECK: Supple. No JVD Carotid Bruits
RESPIRATORY: Lungs clear to auscultation. No crackles wheezes stridor
CVS: S1, S2 normal. RRR. No murmur, rub or gallop. right chest port present
ABDOMEN: Soft, non-tender. No distension. BS+/normal.
EXTREMITIES: No peripheral cyanosis, +2 pitting edema LE's b/l left calf significantly bigger than right calf
LATHER APPRENTICE: AOx3. conversant coherent
IMPRESSION:
85F Lymphoma on chemo (6th tx earlier this month) hx Lt Femur fx ORIF, walker at baseline, brought in by daughter d/t c/o general malaise fatigue nausea. VSS otherwise stable on room air. ED evaluation concerning for elevated white count possibly
due to PNA vs Neulasta given after last chemo session. EKG also noted QT prolongation 500s. CXR concerning for pneumonia though improved in comparison to prior imaging, per report. Denies sob coughing sneezing. Endorses poor appetite for the
past few months. Daughter MURPHY Joseph at bedside assisted with history.
PLAN:
#High Leukocytosis suspect 2/2 recent neulasta
#Community Acquired PNA
initial CXR noted possible pna but also noted improvement compared to prior imaging
Tele observation for now (tele for QT prolongation as below)
PT/OT eval appreciated Home Health vs SNF rehab
fall precautions
received empiric ceftriaxone and azithromycin in ED
no significant lactic acidosis
mild procal elevation
wbc trending down
ID eval appreciated IV abx de-escalated to Augmentin and Doxycycline with clinical improvement. (doxycycline later discontinued d/t concerns nausea loss of appetite)
Augmentin to cont thru 03/28/25 as per ID
#QT prolongation 500s
since resolved following repletion electrolytes
#Mild Hyponatremia
#Hypoglycemia
suspect d/t poor oral intake
IVF D5WNS completed
#Hypokalemia
#Hypophosphatemia
#Hypomagnesemia
monitor and repleted as necessary
#N/V appetite loss
likely 2/2 chemo vs malignancy
Ensure supplementation
compazine prn nausea (required once morning 03/24 since resolved)
cont home protonix carafate
appetite/nausea overall improved
#Acute B/l extensive DVTs
#LE swelling pitting edema asymmetry
#hypoalbuminemia also likely contributing to swelling
#Anemia of Chronic Disease
#Possible Hemodilution from IVF
Venous duplex pos for extensive b/l DVTs
CT angio chest/abd/pelvis appreciated questionable cystitis (denies dysuria) already on abx as above
Noted patient was here October 2024 for GIB that lead to discovery of Lymphoma
Protonix increased to BID to reduce risk recurrence bleed.
Trial therapeutic Lovenox started, tolerating so far, transitioned to Eliquis loading dose 03/25/25-03/31/25 then maintenance dose 5 mg bid from then on.
severe protein-calorie malnutrition
Ensure supplementation
stage 3 sacrum pressure injury, POA
cont local wound care
DVT ppx Eliquis
DNR
Medically stable for discharge Home with home services and outpatient follow up recommendations.
Discussed with patient and patient's Daughter POA same name Opal
Total Time Preparing Discharge ___40____ minutes including examination of the patient, summary of the hospital stay, instructions for continuing care to all relevant caregivers; and preparation of discharge records, prescriptions, and referral
forms if necessary.
Anticipated Discharge: Today
Subjective/Interval History
-
Date of Service: March 27, 2025
Seen and examine at bedside in no acute distress resting comfortably in bed. Overall reports feeling well. Denies new acute issues at this time. Looking forward to going home.
Objective Data
-
Labs:
Laboratory Results
03/27/25 03/27/25
04:44 08:25
WBC 10.0
Hgb 8.7 L Pending
Hct 25.8 L Pending
Plt Count 225
Sodium 132 L
Potassium 3.3 L
Chloride 103
Carbon Dioxide 32 H
BUN < 2 L
Creatinine 0.3 L
Glucose 86
Calcium 7.1 L
Vital Signs:
Vital Signs
Temp Pulse Resp BP Pulse Ox
98.0 F 73 16 117/65 98
03/27/25 07:55 03/27/25 07:55 03/27/25 07:55 03/27/25 07:55 03/27/25 07:55
I&O
03/26/25 03/27/25 03/28/25
06:59 06:59 06:59
Intake Total 2189 / 0 1560 / 1560
Balance 2190 / 0 1560 / 1560
[2025-03-27] MEDS: CARAFATE 1 GRAM PO ×2 (09:01→12:53)
[2025-03-27] MEDS: AUGMENTIN 875 MG/125 MG 1 TABLET PO (09:01)
[2025-03-27] MEDS: FOLVITE 1 MG PO (09:02)
[2025-03-27] MEDS: ELIQUIS 10 MG PO (09:02)
[2025-03-27] MEDS: KCL 20 MEQ PO (09:02)
[2025-03-27] MEDS: MAGNESIUM OXIDE 500 MG PO (09:02)
[2025-03-27] MEDS: FEOSOL 325 MG PO (09:02)
[2025-03-27] MEDS: VITAMIN B-12 1000 MCG PO (09:02)
[2025-03-27] MEDS: PROTONIX 40 MG PO (09:02)
[2025-03-27 09:03] LABS: Hematocrit 28.1 % (37.0-47.0); Hemoglobin 9.2 g/dL (12.0-16.0)
[2025-03-27] MEDS: KCL 40 MEQ PO (09:04)
[2025-03-27 12:00] VITALS: BP 130/76
[2025-03-27] MEDS: D5/0.9% SODIUM CHLORIDE 1000 IV (13:34)
--- NOTE | 2025-03-27 14:53 | W.DCSUMMARY ---
Discharge Summary
Discharge Data
Date of Admission: 03/23/25
Date of Discharge: 03/27/25
-
Pending Results: No
Hospital Course
85F Lymphoma on chemo (6th tx earlier this month) hx Lt Femur fx ORIF, walker at baseline, brought in by daughter d/t c/o general malaise fatigue nausea. VSS otherwise stable on room air. ED evaluation concerning for elevated white count possibly
due to PNA vs Neulasta given after last chemo session. EKG also noted QT prolongation 500s. CXR concerning for pneumonia though improved in comparison to prior imaging, per report. Denied sob coughing sneezing. Endorsed poor appetite for the
past few months. Daughter MURPHY Joseph at bedside assisted with history. High Leukocytosis suspected 2/2 recent Neulasta. Community Acquired PNA. Initial CXR noted possible PNA but also noted improvement compared to prior imaging. PT/OT eval
appreciated Home Health vs SNF rehab (patient/family preferred home). Received empiric ceftriaxone and azithromycin in ED. No significant lactic acidosis. Mild procal elevation. wbc trended down. ID eval appreciated, IV abx de-escalated to
Augmentin and Doxycycline with clinical improvement. (doxycycline later discontinued d/t concerns nausea loss of appetite). Augmentin to cont thru 03/28/25 as per ID.
QT prolongation 500s, since resolved following repletion electrolytes. Acute B/l extensive DVTs, LE swelling pitting edema asymmetry, hypoalbuminemia also likely contributing to swelling. Anemia of Chronic Disease, possible Hemodilution from IVF.
Venous duplex pos for extensive b/l DVTs. CT angio chest/abd/pelvis appreciated questionable cystitis (denies dysuria) already on abx as above. Noted patient was here October 2024 for GIB that lead to discovery of Lymphoma. Protonix increased to
BID to reduce risk recurrence bleed. Trial therapeutic Lovenox started, tolerated so far, transitioned to Eliquis loading dose 03/25/25-03/31/25 then maintenance dose 5 mg bid from then on. Medically stable, patient was discharged home with home
services and outpatient follow up recommendations.
Discharge Plan
-
Patient Disposition: Home with Home Care
Discharge Diagnosis/Procedures: Lymphoma
Pneumonia
Hypokalemia
Acute bilateral lower extremities Deep Vein Thrombosis
Anemia of Chronic Disease
severe protein-calorie malnutrition
stage 3 sacrum pressure injury, present on admission
Condition: Fair
Diet: Regular and Supplements
Additional Diets: Ensure Enlive twice a day
Activity: As tolerated and With Walker
Driving Restrictions: No driving
Bathing Restrictions: None
Blood Work: Repeat CBC BMP and Magnesium level upcoming Mon or following discharge, results to be forwarded to your primary care provider and Oncologist. Script provided to facilitate.
Other Services: VN, PT and OT
Activity Restrictions/Additional Instructions:
Follow up with your primary care provider and oncologist in 1 week of discharge.
Augmentin has been prescribed to complete treatment Pneumonia. 03/28/25 is last day for antibiotics treatment.
Eliquis has been prescribed for treatment Deep Vein Thrombosis. Continue with Eliquis 10 mg twice a day through 03/31/25 to complete loading dose. Then reduce dose to 5 mg twice a day (starting 04/01/25) and continue with that dose from then on.
Protonix has been increased to twice a day for 1 week to reduce risk of recurrence GI bleed. After the week is complete, reduce your dose back to daily dosing.
Carafate has been changed to liquid suspension to help with ease of dosing.
Potassium supplementation has been increased to 20 mEQ twice a day to treat persistent Hypokalemia.
Please take medications as prescribed/recommended and follow up with primary care provider and/or other healthcare provider involved in your care for refills and/or further adjustment to your medication regimen as necessary.
Instructions: Deep vein thrombosis - Discharge instructions
Referrals:
Rosemary Kam MD [Active, Oncology] - in one week
UNKNOWN - PT DOES,NOT KNOW [Family Provider]
Prescriptions:
New
sucralfate [Carafate] 100 mg/mL suspension
10 ml PO ACHS 30 Days Qty: 1200 0RF
amoxicillin-pot clavulanate 875-125 mg Tablet
1 tab PO Q12 Qty: 3 0RF
Rx Instructions:
03/28/25 last day for antibiotics
potassium chloride 20 mEq Tablet,Er Particles/Crystals
20 meq PO BID Qty: 60 0RF
Eliquis 5 mg tablet
5 mg PO DIRECTED Qty: 70 0RF
Rx Instructions:
10mg (2tabs) twice a day thru 03/31/25
Then reduce to 5mg (1tab) twice a day then on
Continued
folic acid 1 mg Tablet
1 mg PO DAILY 30 Days Qty: 30 0RF
cyanocobalamin (vitamin B-12) [Vitamin B-12] 1,000 mcg Tablet
1,000 mcg PO DAILY 30 Days Qty: 30 0RF
ferrous sulfate 325 mg (65 mg iron) tablet
325 mg PO DAILY Qty: 30 0RF
magnesium oxide 400 mg magnesium Tablet
800 mg PO DAILY
Patient Comments:
03/22/2025, chewable tablet.
Tums
2 tab PO DAILYPRN PRN (Reason: gerd)
midodrine 5 mg tablet
5 mg PO DAILYPRN PRN (Reason: hypotension)
pantoprazole [Protonix] 40 mg tablet,delayed release (DR/EC)
40 mg PO BID Qty: 14 0RF
Discontinued
sucralfate [Carafate] 1 gram tablet
1 g PO ACHS 30 Days Qty: 120 0RF
potassium chloride 10 mEq Tablet Extended Release
10 meq PO DAILY
Discharge Orders:
Discharge Patient (As Directed); Ordered 03/27/25
Ordered By: Reyes Malloy
Discharge Date and Time
Discharge Date/Time: 03/27/25 17:00
Print Language: ESTONIAN
--- NOTE | 2025-03-27 15:22 | CM ---
CM spoke with intake at [facility] who confirmed pt has been accepted and appreciative of update that dc is anticipated for today.
[2025-03-27 15:45] VITALS: BP 114/81
== END 2025-03-27 17:00 | disposition home health service (06) | DRG 193 ==
LOC: 2 NORTH 15:30
PROVIDERS: Physician Assistant; ADMITTING PHYSICIAN Internal Medicine; CONSULT PHYSICIAN Internal Medicine Hematology & Oncology; CONSULT PHYSICIAN Internal Medicine Infectious Disease; EMERGENCY PHYSICIAN Emergency Medicine
DX: J18.9 Pneumonia, unspecified organism (principal); E43 Unspecified severe protein-calorie malnutrition; L89.153 Pressure ulcer of sacral region, stage 3; C85.99 Non-Hodgkin lymphoma, unspecified, extranodal and solid organ sites; E87.1 Hypo-osmolality and hyponatremia; I82.403 Acute embolism and thrombosis of unspecified deep veins of lower extremity, bilateral; Z68.1 Body mass index [BMI] 19.9 or less, adult; D72.829 Elevated white blood cell count, unspecified; E83.39 Other disorders of phosphorus metabolism; E83.42 Hypomagnesemia; R94.31 Abnormal electrocardiogram [ECG] [EKG]; R60.0 Localized edema; E88.09 Other disorders of plasma-protein metabolism, not elsewhere classified; D63.8 Anemia in other chronic diseases classified elsewhere; Z66 Do not resuscitate; M19.90 Unspecified osteoarthritis, unspecified site; E87.6 Hypokalemia; E16.2 Hypoglycemia, unspecified; Z79.01 Long term (current) use of anticoagulants; Z79.899 Other long term (current) drug therapy; K21.9 Gastro-esophageal reflux disease without esophagitis; K59.00 Constipation, unspecified
CPT/HCPCS: 71046; 71275; 74174; 80048; 80053; 82607; 82728; 82746; 82962; 83540; 83550; 83605; 83690; 83735; 84100; 84145; 85014; 85018; 85025; 85027; 87040; 93005; 93970; 96361; 96365; 96375; 97163; 97167; 99285; Q9967

== ENCOUNTER 2025-05-04 09:17 | Inpatient (IN) | payer MEDICARE, SELFPAY ==
[2025-04-30 18:10] VITALS: BMI 17.1
[2025-04-30 18:14] VITALS: BP 118/75
[2025-04-30 18:56] LABS: Hematocrit 30.5 % (37.0-47.0); Hemoglobin 9.9 g/dL (12.0-16.0); Mean Corp Hgb Conc. 32.5 g/dL (33.0-37.0); Mean Corpuscular Volume 88.9 fL (81.0-99.0); Platelet Count 129 10^3/uL (130-400); Red Cell Dist. Width 15.2 % (11.5-14.5)
[2025-04-30 19:00] VITALS: BP 118/58
[2025-04-30 19:08] LABS: Nucleated Red Blood Cells % 0 %
[2025-04-30 19:10] LABS: ALT (SGPT) 19 U/L (0-35); AST (SGOT) 40 U/L (14-36); Albumin 2.1 g/dl (3.5-5.0); Alkaline Phosphatase 91 U/L (38-126); Blood Urea Nitrogen 10 mg/dl (7-17); Calcium 7.9 mg/dl (8.4-10.2); Carbon Dioxide 26 mmol/L (22-30); Chloride 102 mmol/L (98-107); Estimated Creatinine Clearance 48 ml/min; Glucose 107 mg/dl (70-99); Potassium 3.8 mmol/L (3.5-5.1); Sodium 128 mmol/L (135-145); Total Protein 3.9 g/dl (6.3-8.2); eGFR > 60.00
[2025-04-30 19:14] LABS: Troponin I 0.038 ng/ml
[2025-04-30 20:00] VITALS: BP 120/63
--- NOTE | 2025-04-30 20:04 | EDRN ---
Dr Betancourt called this RN into room when he assessed pt and informed pt had some swelling in her L arm, IVF stopped and iv needed to be removed. IV as prehospital. Pt had a dressing on L lower arm. IV removed, pressure held - pt bruised quickly.
L ACF with skin tear - family report pt did not have that when she was put in the back of the ambulance. Skin tear cleaned with saline, skin pushed back over tear, abx ointment, telfa dressing and wrapped in gauze fatmata.
[2025-04-30] MEDS: ZOFRAN 4 MG IV (20:18)
[2025-04-30 21:32] VITALS: BP 103/62
--- NOTE | 2025-04-30 21:44 | ED.GENMED ---
History of Present Illness
General
Chief Complaint: Abdominal Symptoms
Source: patient
Time Seen by Provider: 04/30/25 19:04
History of Present Illness
History of Present Illness:
Note:
CHIEF COMPLAINT(S)
Nausea and vomiting.
HISTORY OF PRESENT ILLNESS
The patient is an 85-year-old female who was discovered by her spouse in the bathroom, vomiting. The onset of symptoms was earlier today with continued nausea but no further vomiting since this morning. The vomiting episode was significant enough to
cause a mess that required changing clothes. In the past, she has experienced nausea frequently, usually associated with chemotherapy, although no recent treatment was mentioned apart from one completed on March 04. Her appetite has decreased, and
she reported consuming only small amounts of food, such as cereal this morning prior to vomiting. Notably, the patient has no history of diarrhea since the chemotherapy and no abdominal pain, fever, or urinary symptoms indicating infection. She was
previously hospitalized for pneumonia in March and was discharged on the of that month. Recent laboratory comparisons are underway to evaluate her current condition.
ADDITIONAL HISTORY OBTAINED FROM SOURCES OTHER THAN THE PATIENT
Per the patient�s spouse, she was found vomiting in the bathroom and seemed out of it at that time. Information was also received from EMS about a swollen left arm with a pre-hospital wrap applied. The exact cause is uncertain but could be due to a
tourniquet applied during transport.
EXTERNAL RECORDS REVIEWED
The patients past records indicate a hospital admission in March for pneumonia, discharged on the .
PHYSICAL EXAM
General: Alert, oriented, though somewhat cachectic.
Skin: Skin tear proximal to the antecubital fossa on the left.
Cardiovascular: Heart rhythm regular, no murmurs.
Respiratory: Lungs clear to auscultation.
Gastrointestinal: Abdomen non-distended and non-tender.
Musculoskeletal: Edema observed in the left upper extremity near the left forearm IV.
PROBLEM LIST
Acute Problems:
- Nausea and vomiting
- Edema in the left upper extremity
CHRONIC MEDICAL CONDITIONS SIGNIFICANTLY AFFECTING CARE
- History of chemotherapy
- Previous hospitalization for pneumonia
PLAN
1. Administer antiemetic medication for nausea relief.
2. Perform a quick EKG to check for any medication interactions with electrical conduction of the heart.
3. Conduct an abdominal X-ray to rule out bowel obstruction.
4. Obtain a urine sample to check for any signs of infection.
5. Stop IV fluids through the patient�s left arm due to swelling and use the port for fluid administration instead.
6. Re-evaluate the dressing on the left arm and apply a new one.
7. Compare current lab results with previous data from the last admission in March for any significant changes.
DIFFERENTIAL DIAGNOSIS
The Differential Diagnosis includes, in no particular order and is not limited to:
1. Gastroenteritis
2. Medication Side Effects
3. Chemotherapy-induced nausea
4. Gastroesophageal reflux disease (GERD)
5. Dehydration due to insufficient oral intake
6. Bowel obstruction
7. Urinary tract infection
8. Pneumonia recurrence
9. Electrolyte imbalance
10. Myocardial infarction
CARE-UPDATE
04/30/25 - 21:53
Patient reports feeling better. Imaging shows no evidence of bowel obstruction, but significant stool presence indicates possible constipation. Patient is to be discharged with the recommendation of a gentle diet starting with clear liquids to
maintain hydration. A bowel regimen with Miralax twice daily for four to five days is advised to address constipation. Monitoring for fever or pain is essential, with instructions to return if symptoms worsen. Current lab results show a low weight
count, which is expected post-treatment. Patient has good urine output, indicating effective hydration. No immediate need for scopes like endoscopy or colonoscopy.
EKG
My independent EKG interpretation is:
- Rhythm: Normal size rhythm
- Heart Rate: 66 bpm
- [place]: Left axis deviation
- ST Segment Changes: Not specific STT wave changes
Disposition:
SUMMARY OF ENCOUNTER
The patient, an 85-year-old female, was seen in the emergency department for nausea and vomiting. Upon evaluation, the patient reported significant improvement in her symptoms. Recent lab tests showed leukocytosis with a white blood cell count of
2.2 (possibly a typo in the transcript, should be checked), hemoglobin at 9.9, platelet count of 129, sodium levels at 128, potassium at 3.8, creatinine normal, and glucose normal. Troponin was noted to be 0.038. The plan included repeating the
troponin levels to ensure cardiac stability.
PLAN
Repeat troponin to verify cardiac enzyme normalization and confirm no acute cardiac events. Patient to maintain hydration and follow a gentle diet to manage nausea, and continue any previous bowel regimen.
INDEPENDENT REVIEW OF LABS AND INTERPRETATION OF TESTS
My independent review of CBC is leukocytosis with a white blood cell count of 2.2, hemoglobin at 9.9, and platelet count of 129.
My independent review of BMP indicates a sodium level of 128 and potassium at 3.8, with normal creatinine and glucose levels.
My independent review of troponin indicates a level of 0.038.
MEDICAL DECISION MAKING
-Complexity of Data Reviewed: Chronic conditions affecting care include history of chemotherapy and previous hospitalization for pneumonia. Differential diagnosis includes gastroenteritis, medication side effects, chemotherapy-induced nausea,
gastroesophageal reflux disease (GERD), dehydration due to insufficient oral intake, bowel obstruction, urinary tract infection, pneumonia recurrence, electrolyte imbalance, and myocardial infarction.
-Data:
Category 1
Non-emergency department records reviewed: I reviewed the patients external records, which include hospitalization for pneumonia.
Clinical information was obtained from an independent historian: Input from the patient�s spouse regarding her vomiting episode and from EMS reports was used.
Category 2
My independent interpretation of the EKG does not show acute ischemia.
-Risk:
Consideration of Admission/Observation: Escalation of care including admission/observation was considered given the complexity and risk of the patients presenting complaint, exam findings, and/or their underlying comorbidities. However, ultimately I
feel the patient is safe for outpatient management with close follow-up. Reasoning: Work-up reassuring, does not reveal any acute life/organ-threatening processes, patients symptoms well controlled upon reevaluation, reexamination is reassuring,
vitals are stable, patient agreeable with discharge, reliable for follow-up.
DIAGNOSIS
1. Chemotherapy-induced nausea (ICD-10: R11.2)
2. Electrolyte imbalance, hyponatremia (ICD-10: E87.1)
3. Anemia, unspecified (ICD-10: D64.9)
Please confirm test results and consider re-evaluation of reported data if any inconsistencies are noticed.
2330 repeat troponin is slightly bumped from original patient now on repeat reevaluation reports of mild chest discomfort during her vomiting episode. Question whether her bump troponin is related to her vomiting illness and hypoperfusion or was a
primary cardiac event. Currently asymptomatic given her age and findings, admit for repeat troponin and monitoring of her symptoms. Patient did receive IV fluids. Very mild hyponatremia. In light of history of GI bleed hold aspirin for now
pending repeat troponin. Already on Eliquis
Past History
Past History
ED Past Medical History: Other (osteoarthitis)
ED Past Surgical History: Orthopedic (ORIF of femur fx folling auto-ped)
Social History
Tobacco: Non-smoker
Alcohol: None
Drug: None
Phy Exam
Physical Exam
Physical Exam:
.
Course
Orders/Labs/Results
Orders:
Orders
04/30/25 18:40
CMP [Comprehensive Metabolic Panel] Urgent
Complete Blood Count/With Diff Urgent
Troponin I Urgent
04/30/25 19:39
Electrocardiogram (*1) Urgent
Reason for Study: QTc Monitoring
EKG- Treatment ONCE
04/30/25 19:42
Ondansetron Injectable [Zofran] 4 mg IV NOW STA
04/30/25 20:08
Obstruct Series W/PA Chest [CR Obstruct Series W/pa Chest] Urgent
Comment:
Reason For Exam: vomiting
04/30/25 22:15
Troponin I Urgent
Abnormal Lab Results
04/30/25 04/30/25
18:40 22:15
WBC 2.2 L* 10^3/uL
(4.8-10.8)
RBC 3.43 L 10^6/uL
(4.20-5.40)
Hgb 9.9 L g/dL
(12.0-16.0)
Hct 30.5 L %
(37.0-47.0)
MCHC 32.5 L g/dL
(33.0-37.0)
RDW 15.2 H %
(11.5-14.5)
Plt Count 129 L 10^3/uL
(130-400)
Abs Immat Gran (auto) 0.1 H 10^3/uL
(0-0.05)
Absolute Lymphs (auto) 0.2 L 10^3/uL
(1.2-3.4)
Immature Gran % 6.3 H %
(0-0.5)
Lymphocytes % 8.6 L %
(20.5-51.1)
Monocytes % 12.7 H %
(1.7-9.3)
Sodium 128 L mmol/L
(135-145)
Creatinine 0.5 L mg/dL
(0.6-1.0)
Glucose 107 H mg/dl
(70-99)
Calcium 7.9 L mg/dl
(8.4-10.2)
AST 40 H U/L
(14-36)
Troponin I 0.038 H* ng/ml 0.042 H* ng/ml
Total Protein 3.9 L g/dl
(6.3-8.2)
Albumin 2.1 L g/dl
(3.5-5.0)
04/30/25 18:40
04/30/25 18:40
Vital Signs
Initial and Last Documented VS:
Initial Vital Signs
BP
118/75
04/30/25 18:14
Last Documented Vital Signs
Temp Pulse Resp BP Pulse Ox
97.7 F 65 14 99/53 96
04/30/25 20:00 04/30/25 23:00 04/30/25 20:00 04/30/25 23:00 04/30/25 23:00
*Pulse Oximetry
SaO2: 97
Oxygen Mode of Delivery: Room air
Patient hypoxic: no
*Critical Care Note
Total Time (30-74mins, 75-104mins- exclusive of procedures): Not Applicable
ED Attending Note
-
Portions of this chart may have been created with voice recognition software.� Occasional wrong word or��sound alike� substitutions may have occurred due to the inherent limitations of voice recognition software.
Discharge Plan
Departure
Patient Disposition: Admit
Date of Disposition: 04/30/25
Time of Disposition: 23:30
Admit to: Telemetry
Presentation/result/management discussed w/ accepting MD/DO: Hospitalist
Discharge Problem:
Vomiting, Elevated troponin
Prescriptions:
No Action
folic acid 1 mg Tablet
1 mg PO DAILY 30 Days Qty: 30 0RF
cyanocobalamin (vitamin B-12) [Vitamin B-12] 1,000 mcg Tablet
1,000 mcg PO DAILY 30 Days Qty: 30 0RF
ferrous sulfate 325 mg (65 mg iron) tablet
325 mg PO DAILY Qty: 30 0RF
magnesium oxide 400 mg magnesium Tablet
800 mg PO DAILY
Patient Comments:
03/22/2025, chewable tablet.
Tums
2 tab PO DAILYPRN PRN (Reason: gerd)
midodrine 5 mg tablet
5 mg PO DAILYPRN PRN (Reason: hypotension)
sucralfate [Carafate] 100 mg/mL suspension
10 ml PO ACHS 30 Days Qty: 1200 0RF
potassium chloride 20 mEq Tablet,Er Particles/Crystals
20 meq PO BID Qty: 60 0RF
pantoprazole [Protonix] 40 mg tablet,delayed release (DR/EC)
40 mg PO BID Qty: 14 0RF
Eliquis 5 mg tablet
5 mg PO BID
Referrals:
Guicho Barnard DO [Family Provider, Family Practice]
Interventions
Interventions:
*Risk Screen - Suicide Last Done: 04/30/25 18:10
*General Assessment Last Done: 04/30/25 18:10
*Neglect/Abuse Screening Last Done: 04/30/25 18:19
*ED- Fall Risk Assessment Last Done: 04/30/25 18:10
*ED COVID-19 Vaccine History Last Done: 04/30/25 18:10
GJ-Phqrer-[id number] Assessment Last Done: 04/30/25 20:02
Discharge Date and Time
Print Language: BRAZILIAN
[2025-04-30 22:00] VITALS: BP 110/62
--- NOTE | 2025-04-30 22:00 | EDRN ---
TT to VAT to draw repeat troponin from accessed port
[2025-04-30 22:53] LABS: Troponin I 0.042 ng/ml
[2025-04-30 23:00] VITALS: BP 99/53
[2025-05-01] VITALS (9 sets, daily range): BP systolic 92–139; BP diastolic 52–84; BMI 15.5
--- NOTE | 2025-05-01 00:35 | HPS.HSE ---
Family Physician
-
Family Physician: Guicho Barnard DO
Chief Complaint
-
Nausea vomiting
History of Present Illness
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
presents to the emergency department with 1 day of nausea vomiting.
According to spouse, patient was found in the bathroom vomiting this a.m. She has not vomited since. She is try to have a bowel movements according to daughter which results in has been a lot of time on the commode. However patient reported that
after having the episode of nausea and nonbloody nonbilious emesis she did have substernal chest pain without any shortness of breath. This resolved by 11 AM. She has not had any chest pain since then. She denies any prior history of angina. She
denies exertional dyspnea. She denies lower extremity edema. She denies having any palpitations. She has no history of CAD. She has been compliant with anticoagulation for DVT. In the past, she has experienced nausea frequently, usually
associated with chemotherapy, although no recent treatment was mentioned apart from one completed on March 04. Her appetite has decreased, and she reported consuming only small amounts of food, such as cereal this morning prior to vomiting. Notably,
the patient has no history of diarrhea since the chemotherapy and no abdominal pain, fever, or urinary symptoms indicating infection.
She has not been having any complaints of chest pain or shortness of breath.
In the emergency department blood pressure was 92/55 with a pulse of 60s and she is satting 98% on room air. She is afebrile.
ECG shows mild ST abnormalities in the anterior leads. Troponin was elevated at 0.038 with repeat troponin 042.
Chest x-ray shows no acute infiltrates.
CBC with leukopenia and WBC of 2.2, hemoglobin of 9.9 and platelet of 129. Percent bands are similar to prior at 6.3%. Her electrolytes show a sodium of 128 which is similar to prior from 130. Rest of her electrolytes are normal. BUN/creatinine
were normal.
Medical History
Past Medical History
Past Medical History: Reports Cancer (Lymphoma) and Other
Additional Past Medical History:
Osteoarthritis
Umbilical hernia
Past Surgical History: Reports Other
Additional Past Surgical History:
Hysterectomy
Cholecystectomy
Left tibial plates
Umbilical hernia with mesh and bowel resection
Social History
Tobacco: Non-smoker
Alcohol: None
Living: With Family
Family History
Family History: Not pertinent
Allergies / Home Medications
Allergies reflects when Allergies were last updated in [facility].
Home Medications with original date entered in [facility]
Allergy/Medication List:
Allergies
Allergy/AdvReac Type Severity Reaction Status Date / Time
No Known Allergies Allergy Verified 10/28/24 09:46
Home Medications
naproxen sodium 220 mg tablet (Aleve) 440 mg PO BID 11/21/18
Review of Systems
-
Constitutional: Reports No Symptoms
EENT: Reports No Symptoms
Respiratory: Reports No Symptoms
Cardiac: Reports No Symptoms
Abdomen/GI: Reports Nausea and Vomiting
: Reports No Symptoms
Musculoskeletal: Reports No Symptoms
Skin: Reports No Symptoms
Neurological: Reports No Symptoms
Endocrine: Reports No Symptoms
Hematologic/Lymphatic: Reports No Symptoms
Psych: Reports No Symptoms
Physical Exam
Vital Signs
Vital Signs
Temp Pulse Resp BP Pulse Ox
97.7 F 66 14 92/55 96
04/30/25 20:00 05/01/25 00:00 04/30/25 20:00 05/01/25 00:00 05/01/25 00:00
Physical Exam
General: Comfortable and Other (frail appearing)
HEENT: NormoCephalic, Moist mucous membranes and Atraumatic
Respiratory: Clear
Cardiac: S1/S2 and Regular Rhythm; No Murmur or Rub
GI: Soft, Non Tender, Non Distended and Normal Bowel Sounds; No Organomegaly
Rectal: Deferred by Provider
Genito-urinary: Deferred by me
Musculoskeletal: No Clubbing, No Cyanosis, Edema, Left Upper Extremity, Edema, Right Upper Extremity, Edema, Left Lower Extremity and Edema, Right Lower Extremity
Skin: No Rash
Neuro: Awake, Alert, Oriented, AO x 3, No Motor Deficits and Nonfocal/grossly intact
Psych: Calm
Laboratory Results
-
04/30/25 18:40
04/30/25 18:40
Laboratory Results
Total Bilirubin 0.4 mg/dl (0.2-1.3) 04/30/25 18:40
AST 40 U/L (14-36) H 04/30/25 18:40
ALT 19 U/L (0-35) 04/30/25 18:40
Alkaline Phosphatase 91 U/L (38-126) 04/30/25 18:40
Troponin I 0.042 ng/ml H* 04/30/25 22:15
Data Reviewed
-
Diagnostic Radiology: Image Personally Visualized and interpreted and Report Reviewed by me
Medical Tests (Nuc Med, Echo, EKG etc): Image Personally Visualized and interpreted
Lab Data: Labs Reviewed by me
Old Records: Reviewed
Impression/Plan
-
IMPRESSION:
85-year-old with history of large B-cell lymphoma of the stomach status post last chemotherapy on March 04 presenting to the emergency department with episode of nausea vomiting which has since was found to have elevated troponin to 0.042 in the
emergency department. He also had mild ST changes. She is currently chest pain-free and in no acute distress. She has not had any nausea or vomiting since this morning. Her labs shows leukopenia without neutropenia. She also has a sodium of 128.
PLAN:
1. Elevated troponin -had episode of nausea vomiting and chest pain about 12 hours ago. Suspect angina equivalent patient has no prior history of CAD. She has no signs of acute infection either. Currently chest pain-free without any intervention.
-Admit to telemetry/obs
-Trend troponin every 4 hours
-Repeat ECG
-Patient and family are amenable to stenting if necessary but no further aggressive intervention, she had hx of GI bleed in setting of b-cell lymphoma of stomach now in remission, she has also been tolerating anticoagulation with Eliquis
-Continue Eliquis if troponin stable
-Echo in a.m.
-Cardiology consult
2. Hyponatremia -baseline sodium around 130. Now 128. Suspect this is related to chronic low solute intake. She is not on any SSRI or diuretic
-Continue potassium supplementation
-Gentle hydration
-Free water restriction
-If low urine sodium, can use sodium chloride tabs
-Check TSH and a.m. cortisol
-Continue midodrine
3. DVT
-Continue Eliquis for now
4. Leukopenia -patient with history of B-cell lymphoma of the stomach status post chemotherapy. According to family she has completed the course of chemotherapy and is felt to be in remission. No signs of acute infection
-She does not have neutropenia at this time and does not require any antibiotics
- There is mild pancytopenia which may be related to history of chemo, count follow-up with outpatient
DVT prophylaxis�on Eliquis
CODE STATUS�DNR
[2025-05-01] MEDS: NSS 1000 IV (04:18)
[2025-05-01 04:31] LABS: Hematocrit 25.8 % (37.0-47.0); Hemoglobin 8.5 g/dL (12.0-16.0); Mean Corp Hgb Conc. 32.9 g/dL (33.0-37.0); Mean Corpuscular Volume 88.4 fL (81.0-99.0); Platelet Count 119 10^3/uL (130-400); Red Cell Dist. Width 15.3 % (11.5-14.5)
[2025-05-01 04:51] LABS: Blood Urea Nitrogen 10 mg/dl (7-17); Calcium 7.8 mg/dl (8.4-10.2); Carbon Dioxide 30 mmol/L (22-30); Chloride 103 mmol/L (98-107); Estimated Creatinine Clearance 48 ml/min; Glucose 57 mg/dl (70-99); Potassium 3.9 mmol/L (3.5-5.1); Sodium 129 mmol/L (135-145); eGFR > 60.00
[2025-05-01 05:15] LABS: Glucose - Point of Care 60 mg/dl (70-99)
[2025-05-01 05:15] LABS: Troponin I 0.140 ng/ml
--- NOTE | 2025-05-01 05:18 | EDRN ---
Repeat BS after 4oz OJ = 60; pt drank second 4oz OJ
[2025-05-01 05:22] LABS: Cortisol, Random 19.9 ug/dl
[2025-05-01 05:37] LABS: Glucose - Point of Care 65 mg/dl (70-99)
[2025-05-01] MEDS: D5/0.9% SODIUM CHLORIDE 1000 IV ×2 (05:40→18:19)
--- NOTE | 2025-05-01 05:53 | EDRN ---
TT sent to [facility] regarding low blood sugars, tx with 8oz OJ, food and jennifer rosemarie and three troponin results. IVF changed to D5NS.
--- NOTE | 2025-05-01 06:01 | W.PN.UPDATE ---
Update Note
Progress Note Update
~ 5 am - AM labs showed glucose 57, gave 4 oz OJ, repeat accucheck 60, gave second 4 oz OJ. Third accucheck 65, patient unable to drink any more OJ, did eat 1/4 cheese sandwich, half brownie and few sips of jennifer rosemarie.
Changed IV fluids to D5NSS @ 75 mls/hr. Ordered AC/HS accuchecks and D50 coverage for hypoglycemia, if unable to take PO.
~5:30 Troponins trended: initial 0.038 -> 0.042 -> 0.140. Eliquis discontinued, started heparin gtt. Cardiology previously consulted.
[2025-05-01] MEDS: HEPARIN 25000 UNITS/250 ML IV (06:28)
[2025-05-01 06:33] LABS: Glucose - Point of Care 77 mg/dl (70-99)
[2025-05-01 06:37] LABS: APTT 36.9 Sec (23.4-35.0)
[2025-05-01] MEDS: VITAMIN B-12 1000 MCG PO (09:56)
[2025-05-01] MEDS: MAGNESIUM OXIDE 800 MG PO (09:56)
[2025-05-01] MEDS: KCL 20 MEQ PO ×2 (09:58→21:30)
[2025-05-01] MEDS: FEOSOL 325 MG PO (09:58)
[2025-05-01] MEDS: PEPCID 20 MG IV (09:58)
[2025-05-01] MEDS: PROTONIX 40 MG PO ×2 (09:58→21:30)
[2025-05-01] MEDS: FOLVITE 1 MG PO (09:58)
[2025-05-01] MEDS: CARAFATE SUSPENSION 1 GM PO ×4 (09:59→21:30)
[2025-05-01 10:08] LABS: Glucose - Point of Care 96 mg/dl (70-99)
--- NOTE | 2025-05-01 10:35 | CM ---
operations section manager reviewed patient's chart and met with patient and patient states she lives in a town home with her daughter, patient is independent with adl's and uses a walker with ambulation.
PCP: Guicho Barnard
Pharmacy: [facility] in [place]
[2025-05-01 10:43] LABS: Troponin I 0.182 ng/ml
--- NOTE | 2025-05-01 12:43 | CON.CAR ---
Addendum entered and electronically signed by Reji Shore MD 05/01/25 15:41:
I saw and evaluated the patient, and I provided the substantive portion of the medical decision making.
I reviewed and agree with the note by ERVIN Benjamin and it accurately reflects our care.
I personally performed the medical decision making of the this encounter and my assessment and plan is below:
1 hour of 8/10 intensity central chest pressure with associated GI Sx.
Troponin rising, not peaked yet, still low but abnormal, so far highet is 0.18
EKG quiet
This seems to be a NSTEMI but I cannot exclue a nonischemic myocardial injury from some other process
She has no interest in having a cardiac cath or stent placement
She is already on Eliquis and seems way to frail to add antiplatelet meds
Will check lipid profile and consider statin, but we might see LDL already less than 70
High risk here
Just completed a chemo course ([facility]) for gastric lymphoma
Will add bb and low dose nitrates
Hope she does will with med rx
Plan on echo prior to discharge
Addendum entered and electronically signed by Jessie Mike NP 05/01/25 13:21:
Pt eliquis is currently on hold and she is on IV heparin.
Original Note:
Consultation
Consultation Request
Date/Time Consultation Requested: 05/01/2025 1030
Date/Time Consultation Performed: 05/01/2025 1200
Requesting Provider: Dr. Mcduffie
Performing Provider: Dr. Shore
Reason for Consultation: nausea, CP, and elevated troponin
Medical History
-
Chief Complaint: nausea, chest pain
History of Present Illness:
85-year-old patient with diffuse large B-cell lymphoma to the stomach with her last treatment March 04, 2025, mild AR, mild to moderate TR who presented to the emergency room with nausea and vomiting since around noontime yesterday. She states that
she felt nauseous and had several episodes of vomiting. Her daughter got home around 5:30 in the evening and found her in the bathroom attempting to go to the bathroom as well. The patient also describes an episode of substernal chest discomfort.
She may have felt some discomfort in her back as well. She rated this episode approximately 8 out of 10 on the pain scale. She thinks this lasted for at least an hour. She is unsure if the chest pain or the nausea came first she thinks they both
came together. Since being here at the hospital she has not had recurrent chest pain. She does note that she has been feeling increased fatigue and tiredness recently.
Past Medical History
Past Medical History: Other (Gastric large cell lymphoma diagnosed 10/2024, mild-moderate TR, mild AR, osteoarthritis)
Past Surgical History: Other (Hysterectomy, cholecystectomy, umbilical hernia repair )
Social History
Tobacco: Non-Smoker
Alcohol: None
Living: With Family
Family History
Family History: Reviewed & Not Pertinent
Allergies / Home Medications
Allergy/AdvReac Type Severity Reaction Status Date / Time
No Known Allergies Allergy Verified 04/30/25 23:43
�Medication �Instructions �Recorded �Confirmed �Type
cyanocobalamin (vitamin B-12) 1,000 mcg PO DAILY 30 days #30 tabs 11/02/24 04/30/25 Rx
1,000 mcg tablet (Vitamin B-12)
ferrous sulfate 325 mg (65 mg 325 mg PO DAILY #30 tabs 11/02/24 04/30/25 Rx
iron) tablet
folic acid 1 mg tablet 1 mg PO DAILY 30 days #30 tabs 11/02/24 04/30/25 Rx
Tums 2 tab PO DAILYPRN PRN gerd 03/22/25 04/30/25 History
magnesium oxide 800 mg PO DAILY Stroke 03/22/25 04/30/25 History
midodrine 5 mg tablet 5 mg PO DAILYPRN PRN hypotension 03/22/25 04/30/25 History
pantoprazole 40 mg tablet,delayed 40 mg PO BID Gastrointestinal 03/27/25 04/30/25 Rx
release (Protonix) Issue #14 tabs
potassium chloride 20 mEq 20 meq PO BID #60 tabs 03/27/25 04/30/25 Rx
tablet,extended release(part/cryst)
sucralfate 100 mg/mL oral 10 ml PO ACHS 30 days #1,200 mL 03/27/25 04/30/25 Rx
suspension (Carafate)
apixaban 5 mg tablet (Eliquis) 5 mg PO BID 04/30/25 04/30/25 History
Review of Systems
-
History Source: Patient and Family
Constitutional: Weight Loss and Fatigue
EENT: No Symptoms
Respiratory: No Symptoms
Cardiac: Chest Pain
Abdomen/GI: Nausea and Vomiting
: No Symptoms
Musculoskeletal: No Symptoms
Physical Exam
Vital Signs
Temp Pulse Resp BP Pulse Ox
97.5 F 67 16 136/72 98
05/01/25 12:13 05/01/25 12:13 05/01/25 12:13 05/01/25 12:08 05/01/25 12:13
Lab Results
05/01/25 04:18
05/01/25 04:18
Troponin I 0.182 ng/ml H* D 05/01/25 10:00
Physical Exam
General: No Apparent Distress and Comfortable
HEENT: Normocephalic, Anicteric and Moist Mucous Membranes
Respiratory: Clear
Cardiac: S1/S2 and Regular Rhythm
Breast: Deferred by me
GI: Soft, Non Tender and Normal Bowel Sounds
Musculoskeletal: No Edema
Skin: Warm and Dry
Neuro: AO x 3
Psych: Calm
Impression / Plan
-
Chest pain/NSTEMI:
- possible NSTEMI vs type II WI given anemia, lymphoma.
- CP Associated with nausea
- Last episode was noted in the afternoon on 04/30/2025.
- EKG without Nonspecific ST abnormalities
- Peak troponin 0.182.
- No prior history of CAD.
- Continue to trend troponins, monitor symptoms.
- Discussion with patient with daughter at bedside that if troponins continue to rise or recurrent episodes which she be willing to proceed with [facility]. Patient states she would not want to pursue invasive procedures.
- Echocardiogram from October 29, 2024 with normal EF, mild AR, mild to moderate TR
- Update echo
-hold on asa given anemia, prior GI bleed and current on eliquis.
-check lipids, hold on statin given frail in setting of lymphoma with GI issues.
-attempt low dose beta nicohle
Gastric large cell lymphoma:
- Hospitalist following
-Seen by Dr. Diego for cardio oncology evaluation. At that time was receiving Adriamycin containing chemotherapy. Plan for follow-up in July with echo with strain
-prior history of GI bleed with lymphoma
History of DVT:
- US 03/23/25 DVT bilat LE R > L
- On Eliquis
hypotension:
-has prn midodrine at home. Daughter states she has not been using it.
CODE STATUS: DNR reviewed at bedside with patient and daughter today
Data Reviewed
-
EKG: Tracing Personally Visualized and interpreted (EKG 04/30/2025 normal sinus rhythm 66 bpm left axis deviation, nonspecific ST abnormality)
Medical Tests (Nuc Med, Echo etc): Report Reviewed by me (Echocardiogram October 29, 2024:LV ejection fraction is 65-70%, by visual assessment. No regional wall motion abnormalities are seen. Normal right ventricular size and function.
Moderately to severely dilated left atrium. Mild aortic regurgitation. Mild to moderate tricuspid regurgitation. Es)
Labs: Labs Reviewed by me, Discussed with Nurse and Discussed with Family
Old Records: Reviewed
Critical Care Time (in minutes): Reviewed outpatient cardiology notes from cardio oncology consultation December
[2025-05-01 13:21] LABS: APTT 57.5 Sec (23.4-35.0)
--- NOTE | 2025-05-01 14:13 | PTCARENOTE ---
Patient received from the ED. AO x 3, fragile, thin. Denies shortness of breath, nausea or chest pain.VSS, NSR. Stage II on scarum and skin tear left antecubital area, dressing applied, will consult wound care. Instructed to reposition
frequently,lying on side. Heparin gtt and IVF infusing, call robles in reach
--- NOTE | 2025-05-01 14:19 | W.PN.HOSP.TC ---
Today's Communication/Plan
-
Monitor vital signs see plan
Continue with IV heparin
Cardiology following
Echo
Nonbillable note
Assessment / Plan
Assessment / Plan
General: Comfortable and Other (frail appearing)
HEENT: NormoCephalic, Moist mucous membranes and Atraumatic
Respiratory: Clear
Cardiac: S1/S2 and Regular Rhythm; No Murmur or Rub
GI: Soft, Non Tender, Non Distended and Normal Bowel Sounds
Musculoskeletal: Edema, Left Upper Extremity, Edema, Right Upper Extremity, Edema, Left Lower Extremity and Edema, Right Lower Extremity
Neuro: Awake, Alert, Oriented, AO x 3, No Motor Deficits and Nonfocal/grossly intact
Psych: Calm
Elevated troponin
Suspect NSTEMI versus type II MD
Trend troponin
IV heparin
Cardiology following
Echo low dose toprol
Hyponatremia -baseline sodium around 130. Suspect this is related to chronic low solute intake. She is not on any SSRI or diuretic
-Continue potassium supplementation
-Gentle hydration
-Free water restriction
-Continue midodrine
Leukopenia -patient with history of B-cell lymphoma of the stomach status post chemotherapy. According to family she has completed the course of chemotherapy and is felt to be in remission. No signs of acute infection
-She does not have neutropenia at this time and does not require any antibiotics
- There is mild pancytopenia which may be related to history of chemo, count follow-up with outpatient
History of hypertension
Midodrine
DVT
IV heparin
DVT prophylaxis�on Eliquis
CODE STATUS�DNR
Anticipated Discharge: > 48 hours
Subjective/Interval History
-
Date of Service: May 01, 2025
Denies pain
Objective Data
-
Labs:
Laboratory Results
05/01/25 05/01/25 05/01/25
04:18 06:18 13:02
WBC 2.1 L*
Hgb 8.5 L
Hct 25.8 L
Plt Count 119 L
APTT 36.9 H 57.5 H
Sodium 129 L
Potassium 3.9
Chloride 103
Carbon Dioxide 30
BUN 10
Creatinine 0.4 L
Glucose 57 L
Calcium 7.8 L
05/01/25
19:45
WBC
Hgb
Hct
Plt Count
APTT Pending
Sodium
Potassium
Chloride
Carbon Dioxide
BUN
Creatinine
Glucose
Calcium
Vital Signs:
Vital Signs
Temp Pulse Resp BP Pulse Ox
97.5 F 61 16 136/72 98
05/01/25 12:13 05/01/25 13:30 05/01/25 12:13 05/01/25 12:08 05/01/25 12:13
I&O
04/30/25 05/01/25 05/02/25
06:59 06:59 06:59
Output Total 125 / 125
Balance -125 / -125
[2025-05-01] MEDS: ZOFRAN 4 MG IV (16:34)
[2025-05-01 17:28] LABS: Troponin I 0.138 ng/ml
--- NOTE | 2025-05-01 17:33 | PTCARENOTE ---
Patient vomited while eating sherbert. Nausea persists, Zofran IV given, troponin collected 0.138 trending down
--- NOTE | 2025-05-01 18:35 | PTCARENOTE ---
Patient feeling better, nausea resolved, large BM on the bedside commode
[2025-05-01 20:15] LABS: APTT 129.6 Sec (23.4-35.0)
[2025-05-01] MEDS: TOPROL XL 12.5 MG PO (21:31)
[2025-05-02] VITALS (7 sets, daily range): BP systolic 113–138; BP diastolic 67–93; PULSE 63; BMI 16.1
--- NOTE | 2025-05-02 02:43 | PTCARENOTE ---
Assumed care of the pt @ 1900. Pt is AAOx3 SR on the monitor VSS Heparin gtt infusing denies cp. Pt vomited sm amt clear liquid zofran ivp given. Pt states feels better. Call robles within reach.
[2025-05-02 03:29] LABS: Glucose - Point of Care 86 mg/dl (70-99)
[2025-05-02 04:01] LABS: APTT 97.6 Sec (23.4-35.0)
[2025-05-02] MEDS: ZOFRAN 4 MG IV ×2 (04:04→17:38)
[2025-05-02 04:09] LABS: Hematocrit 28.0 % (37.0-47.0); Hemoglobin 9.0 g/dL (12.0-16.0); Mean Corp Hgb Conc. 32.1 g/dL (33.0-37.0); Mean Corpuscular Volume 88.6 fL (81.0-99.0); Platelet Count 131 10^3/uL (130-400); Red Cell Dist. Width 15.0 % (11.5-14.5)
[2025-05-02 04:14] LABS: ALT (SGPT) 16 U/L (0-35); AST (SGOT) 23 U/L (14-36); Albumin 1.7 g/dl (3.5-5.0); Alkaline Phosphatase 75 U/L (38-126); Blood Urea Nitrogen 6 mg/dl (7-17); Calcium 7.6 mg/dl (8.4-10.2); Carbon Dioxide 29 mmol/L (22-30); Chloride 106 mmol/L (98-107); Estimated Creatinine Clearance 45 ml/min; Glucose 109 mg/dl (70-99); HDL Cholesterol 68 mg/dl; LDL Cholesterol, Calculated 13 mg/dl; Potassium 3.5 mmol/L (3.5-5.1); Sodium 131 mmol/L (135-145); Total Protein 3.4 g/dl (6.3-8.2); Very Low Density Lipoprotein 10 mg/dl (0-30); eGFR > 60.00
[2025-05-02 04:26] LABS: Troponin I 0.077 ng/ml
[2025-05-02 06:54] LABS: Nucleated Red Blood Cells % 0 %
[2025-05-02 08:13] LABS: Glucose - Point of Care 94 mg/dl (70-99)
[2025-05-02] MEDS: VITAMIN B-12 1000 MCG PO (08:36)
[2025-05-02] MEDS: CARAFATE SUSPENSION 1 GM PO ×3 (08:36→22:32)
[2025-05-02] MEDS: PROTONIX 40 MG PO ×2 (08:36→20:51)
[2025-05-02] MEDS: MAGNESIUM OXIDE 800 MG PO (08:36)
[2025-05-02] MEDS: PEPCID 20 MG PO (08:36)
[2025-05-02] MEDS: IMDUR (EXTENDED RELEASE) 15 MG PO (08:37)
[2025-05-02] MEDS: FEOSOL 325 MG PO (08:37)
[2025-05-02] MEDS: KCL 20 MEQ PO ×2 (08:37→20:51)
[2025-05-02] MEDS: D5/0.9% SODIUM CHLORIDE 1000 IV (08:51)
[2025-05-02] MEDS: FOLVITE 1 MG PO (08:57)
[2025-05-02 10:03] LABS: APTT 103.8 Sec (23.4-35.0)
--- NOTE | 2025-05-02 10:31 | W.PN.CD ---
Today's Communication / Plan
-
IV heparin another 24-48 hours
Daily EKG/AM troponin
Echo Tue if not sent home
N/V may be related to her GI hx. Per hospitalist, not thinking this is from ischemia but it could be I suppose
Impression / Plan
-
Chest pain/NSTEMI:
- Suspect NSTEMI (vs type II RI given anemia, lymphoma)
- CP Associated with nausea an vomiting
- Episode was noted in the afternoon on 04/30/2025.
- After N/V this AM had 5 min of lower sternal pain today 05/01/2025
- Added low dose BB and low dose nitrates => continue
- Did not antiplatelet med to her chronic Eliquis as her frail state risks > benefits in my mind. No ASA
- As anticipated LDL with no statin <55 LDL 13 => NO STATIN
- Pt declines consideration for cath, and I do not favor cath. No Cardaic cath
N/V
- Likely from a GI process
- Less likely from ischemia
- Has been on BID PPI an sucralfate
Anemia, prior GI bleed
DVT:
- US 03/23/25 DVT bilat LE R > L
- On Eliquis
Gastric large cell lymphoma:
- Hospitalist following
-Seen by Dr. Diego for cardio oncology evaluation. At that time was receiving Adriamycin containing chemotherapy. Plan for follow-up in July with echo with strain
-prior history of GI bleed with lymphoma
Hypotension:
-has prn midodrine at home. Daughter states she has not been using it.
CODE STATUS: DNR
Subjective: 5 min of CP after N/V today
- Echocardiogram from October 29, 2024 with normal EF, mild AR, mild to moderate TR
- Update echo
Physical Exam
Vital Signs/Labs
Vital Signs
Temp Pulse Resp BP Pulse Ox
97.3 F 57 20 138/73 100
05/02/25 07:26 05/02/25 04:03 05/02/25 07:26 05/02/25 03:21 05/02/25 07:26
05/01/25 05/02/25 05/03/25
06:59 06:59 06:59
Actual Weight 43.9 kg 41.3 kg
05/02/25 03:30
05/02/25 03:30
APTT 103.8 Sec (23.4-35.0) H 05/02/25 09:42
Triglycerides 53 mg/dl (10-149) 05/02/25 03:30
LDL Cholesterol, Calc 13 mg/dl 05/02/25 03:30
VLDL Cholesterol, Calc 10 mg/dl (0-30) 05/02/25 03:30
HDL Cholesterol 68 mg/dl 05/02/25 03:30
LAB Results
04/30/25 04/30/25 05/01/25
18:40 22:15 04:18
Troponin I 0.038 H* 0.042 H* 0.140 H* D
05/01/25 05/01/25 05/01/25
06:42 10:00 16:29
Troponin I Cancelled 0.182 H* D 0.138 H*
05/02/25
03:30
Troponin I 0.077 H*
Physical Exam
Constitutional: Other (thin and emaciated)
Cardiovascular: Rhythm & rate is regular and Pedal edema is absent
Respiratory: Respiratory effort normal and Lungs clear to auscul.
GI: Soft and Distention absent
Neuro/Psych: AO x 3
Data Reviewed
-
Date of Service: May 02, 2025
--- NOTE | 2025-05-02 10:39 | PTCARENOTE ---
Patient with persistent nausea and vomiting. Poor appetite. No complaints of chest pain
[2025-05-02] MEDS: TIGAN 200 MG IM ×2 (11:10→19:10)
[2025-05-02 12:30] LABS: Glucose - Point of Care 85 mg/dl (70-99)
--- NOTE | 2025-05-02 13:01 | W.PN.HOSP.TC ---
Today's Communication/Plan
-
Monitor vitals
see plan
Check CT abdomen/pelvis
Antiemetic
Continue with IV heparin
Echo
Assessment / Plan
Assessment / Plan
General: Comfortable and Other (frail appearing)
HEENT: NormoCephalic, Moist mucous membranes and Atraumatic
Respiratory: Clear
Cardiac: S1/S2 and Regular Rhythm; No Murmur or Rub
GI: Soft, Non Tender, Non Distended and Normal Bowel Sounds
Musculoskeletal: Edema, Left Upper Extremity, Edema, Right Upper Extremity, Edema, Left Lower Extremity and Edema, Right Lower Extremity
Neuro: Awake, Alert, Oriented, AO x 3, No Motor Deficits and Nonfocal/grossly intact
Psych: Calm
Elevated troponin
Suspect NSTEMI versus type II MS
trop noted
IV heparin
Cardiology following
Echo
low dose toprol
Nausea and vomiting
denies abdominal pain
denies previous symptoms
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
Check CT abdomen/pelvis with p.o. contrast if can tolerate
Dose of Tigan
Zofran
On PPI twice daily and Carafate
Hyponatremia -baseline sodium around 130. Suspect this is related to chronic low solute intake. She is not on any SSRI or diuretic
-Continue potassium supplementation
-Gentle hydration
-Free water restriction
-Continue midodrine
Leukopenia -patient with history of B-cell lymphoma of the stomach status post chemotherapy. According to family she has completed the course of chemotherapy and is felt to be in remission. No signs of acute infection
-She does not have neutropenia at this time and does not require any antibiotics
- There is mild pancytopenia which may be related to history of chemo, count follow-up with outpatient
Acute bilateral DVTs
on eliquis outpatient
currently on hep
History of hypertension
Midodrine
DVT
IV heparin
DVT prophylaxis�heparin
CODE STATUS�DNR
I spent a total of 52 minutes with the patient or on the floor. More than 50% of this time involved counseling and coordination of care.
Anticipated Discharge: > 48 hours
Subjective/Interval History
-
Date of Service: May 02, 2025
denies pain
Objective Data
-
Labs:
Laboratory Results
05/02/25 05/02/25
03:30 09:42
WBC 2.7 L
Hgb 9.0 L
Hct 28.0 L
Plt Count 131
APTT 97.6 H 103.8 H
Sodium 131 L
Potassium 3.5
Chloride 106
Carbon Dioxide 29
BUN 6 L
Creatinine 0.3 L
Glucose 109 H
Calcium 7.6 L
Total Bilirubin 0.2
AST 23
ALT 16
Alkaline Phosphatase 75
Vital Signs:
Vital Signs
Temp Pulse Resp BP Pulse Ox
97.1 F 57 20 138/73 100
05/02/25 11:28 05/02/25 04:03 05/02/25 11:28 05/02/25 03:21 05/02/25 11:28
I&O
05/01/25 05/02/25 05/03/25
06:59 06:59 06:59
Intake Total 1380 / 1380
Output Total 675 / 675
Balance 705 / 705
[2025-05-02] MEDS: OMNIPAQUE 50 ML PO (13:48)
[2025-05-02] MEDS: CARAFATE SUSPENSION PO (13:48)
--- NOTE | 2025-05-02 13:51 | PTCARENOTE ---
Ate lunch and vomited right after eating and taking oral medications. Assisted to the commode to move her bowels. Oral contrast started
--- NOTE | 2025-05-02 17:54 | PTCARENOTE ---
Patient able to tolerate some of the PO contrast. She was sent to CT on a stretcher. Persistent intermittent nausea and vomiting clear emesis. Poor PO intake. Zofran given. Right forearm IV leaking, removed. New IV placed. Heparin infusing, daughter
at bedside. Patient in chair, call robles in reach
[2025-05-02] MEDS: HEPARIN 25000 UNITS/250 ML IV (19:23)
[2025-05-02] MEDS: COLACE PO (19:25)
[2025-05-02] MEDS: TOPROL XL 12.5 MG PO (22:32)
[2025-05-03] VITALS (7 sets, daily range): BP systolic 102–137; BP diastolic 71–97; BMI 15.4; BMI 16.1
[2025-05-03] MEDS: D5/0.9% SODIUM CHLORIDE 1000 IV (00:50)
[2025-05-03] MEDS: COMPAZINE 5 MG IV ×3 (03:58→20:11)
[2025-05-03 04:19] LABS: Hematocrit 27.4 % (37.0-47.0); Hemoglobin 9.0 g/dL (12.0-16.0); Mean Corp Hgb Conc. 32.8 g/dL (33.0-37.0); Mean Corpuscular Volume 88.4 fL (81.0-99.0); Platelet Count 130 10^3/uL (130-400); Red Cell Dist. Width 15.0 % (11.5-14.5)
[2025-05-03 04:21] LABS: APTT 167.3 Sec (23.4-35.0)
[2025-05-03 04:27] LABS: ALT (SGPT) 15 U/L (0-35); AST (SGOT) 19 U/L (14-36); Albumin 1.7 g/dl (3.5-5.0); Alkaline Phosphatase 75 U/L (38-126); Blood Urea Nitrogen 5 mg/dl (7-17); Calcium 7.5 mg/dl (8.4-10.2); Carbon Dioxide 29 mmol/L (22-30); Chloride 109 mmol/L (98-107); Estimated Creatinine Clearance 45 ml/min; Glucose 105 mg/dl (70-99); Potassium 3.3 mmol/L (3.5-5.1); Sodium 133 mmol/L (135-145); Total Protein 3.4 g/dl (6.3-8.2); eGFR > 60.00
[2025-05-03 04:47] LABS: Troponin I 0.052 ng/ml
[2025-05-03 05:27] LABS: Absolute Neutrophils -Man Diff 0.9 10^3/uL (1.4-6.5); Platelets Checked Yes
[2025-05-03 05:28] LABS: Acanthocytes Slight; Normal RBC Morphology No; Ovalocytes Slight; Poikilocytosis Slight; Polychromasia Slight
[2025-05-03 05:29] LABS: Rouleaux Slight; Total Cells Counted 100
--- NOTE | 2025-05-03 08:00 | PTCARENOTE ---
received patient at change of shift from previous RN. pt resting in bed, arouses to voice, drowsy, orientedx3. denies pain at this time, denies nausea. generalized weakness noted. SR/SB on telemetry heart rate 50-60s. pulses palpable. trace edema.
pt on room air, lung sounds diminished in bases. active bowel sounds. pt incontinent of urine. pt updated on plan of care. see worklist for full nursing assessment.
[2025-05-03] MEDS: CARAFATE SUSPENSION 1 GM PO ×3 (08:43→22:21)
[2025-05-03] MEDS: COLACE 100 MG PO ×2 (08:43→21:05)
[2025-05-03] MEDS: PROTONIX 40 MG PO ×2 (08:43→20:11)
[2025-05-03] MEDS: FEOSOL 325 MG PO (08:43)
[2025-05-03] MEDS: MAGNESIUM OXIDE 800 MG PO (08:44)
[2025-05-03] MEDS: IMDUR (EXTENDED RELEASE) 15 MG PO (08:44)
[2025-05-03] MEDS: KCL PO ×2 (08:44→14:08)
[2025-05-03] MEDS: PEPCID 20 MG PO (08:44)
[2025-05-03] MEDS: VITAMIN B-12 1000 MCG PO (08:44)
[2025-05-03] MEDS: FOLVITE 1 MG PO (08:44)
[2025-05-03] MEDS: MIRALAX 17 GRAMS PO (08:45)
--- NOTE | 2025-05-03 09:44 | W.PN.CD ---
Today's Communication / Plan
-
tolerating current medicalt therapy
continue medical therapy for CAD
transition fom heparin back to Eliqusi when ok with primary team
Impression / Plan
-
Chest pain/NSTEMI:
- Suspect NSTEMI (vs type II [place] given anemia, lymphoma) troponin peak 0.18
- CP Associated with nausea an vomiting
- Episode was noted in the afternoon on 04/30/2025.
- After N/V this AM had 5 min of lower sternal pain 05/01/2025
- Added low dose BB and low dose nitrates => continue
- antiplatelet med not added to chronic Eliquis as her frail state risks > benefits in my mind. No ASA
- LDL with no statin <55 LDL 13 => NO STATIN
- As Per Dr Olivia note. Pt declines consideration for cath, and I do not favor cath. No Cardaic cath
N/V
- Likely from a GI process
- Less likely from ischemia
- Has been on BID PPI an sucralfate
Anemia, prior GI bleed
DVT:
- US 03/23/25 DVT bilat LE R > L
- On Eliquis
Gastric large cell lymphoma:
- Hospitalist following
-Seen by Dr. Diego for cardio oncology evaluation. At that time was receiving Adriamycin containing chemotherapy. Plan for follow-up in July with echo with strain
-prior history of GI bleed with lymphoma
Hypotension:
-has prn midodrine at home. Daughter states she has not been using it.
CODE STATUS: DNR
Subjective: no cp or sob
- Echocardiogram from October 29, 2024 with normal EF, mild AR, mild to moderate TR
Physical Exam
Vital Signs/Labs
Vital Signs
Temp Pulse Resp BP Pulse Ox
97.2 F 60 16 137/87 99
05/03/25 07:52 05/03/25 09:00 05/03/25 07:52 05/03/25 07:54 05/03/25 07:52
05/02/25 05/03/25 05/04/25
06:59 06:59 06:59
Actual Weight 41.3 kg
05/03/25 03:48
05/03/25 03:48
APTT 167.3 Sec (23.4-35.0) H* 05/03/25 03:48
Triglycerides 53 mg/dl (10-149) 05/02/25 03:30
LDL Cholesterol, Calc 13 mg/dl 05/02/25 03:30
VLDL Cholesterol, Calc 10 mg/dl (0-30) 05/02/25 03:30
HDL Cholesterol 68 mg/dl 05/02/25 03:30
LAB Results
04/30/25 04/30/25 05/01/25
18:40 22:15 04:18
Troponin I 0.038 H* 0.042 H* 0.140 H* D
05/01/25 05/01/25 05/01/25
06:42 10:00 16:29
Troponin I Cancelled 0.182 H* D 0.138 H*
05/02/25 05/02/25 05/02/25
03:30 14:00 22:00
Troponin I 0.077 H* Cancelled Cancelled
05/03/25
03:48
Troponin I 0.052 H*
Physical Exam
Constitutional: No acute distress
Respiratory: Respiratory effort normal
GI: Soft
Neuro/Psych: Alert
Data Reviewed
-
Date of Service: May 03, 2025
[2025-05-03 12:14] LABS: APTT 77.2 Sec (23.4-35.0)
[2025-05-03] MEDS: CARAFATE SUSPENSION PO (12:36)
--- NOTE | 2025-05-03 13:27 | W.PN.HOSP.TC ---
Today's Communication/Plan
-
Monitor vitals
See plan
GI evaluation
Hematology evaluation
Will continue with IV heparin in case GI does any intervention
Monitor nausea and vomiting
Antiemetic
cw PPI, carafate
Discussed with daughter
Assessment / Plan
Assessment / Plan
General: Comfortable and Other (frail appearing)
HEENT: NormoCephalic, Moist mucous membranes and Atraumatic
Respiratory: Clear
Cardiac: S1/S2 and Regular Rhythm; No Murmur or Rub
GI: Soft, Non Tender, Non Distended and Normal Bowel Sounds
Musculoskeletal: Edema, Left Upper Extremity, Edema, Right Upper Extremity, Edema, Left Lower Extremity and Edema, Right Lower Extremity
Neuro: Awake, Alert, Oriented, AO x 3, No Motor Deficits and Nonfocal/grossly intact
Psych: Calm
Elevated troponin
Suspect NSTEMI versus type II [place]
trop noted
cw IV heparin
Cardiology following
Echo
low dose toprol
Nausea and vomiting
denies abdominal pain
denies previous symptoms
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
CT abdomen/pelvis with new moderate gastric distention with mild gastric wall thickening. Patient has persistent nausea and vomiting. GI consulted
cw compazine
On PPI twice daily and Carafate
was scheduled for EGD per daughter this month
Would not start Eliquis and will keep IV heparin if GI needs to perform any intervention
Hyponatremia -baseline sodium around 130. Suspect this is related to chronic low solute intake. She is not on any SSRI or diuretic
-Continue potassium supplementation
-Gentle hydration
-Free water restriction
-Continue midodrine
Leukopenia -patient with history of B-cell lymphoma of the stomach status post chemotherapy. According to family she has completed the course of chemotherapy and is felt to be in remission. No signs of acute infection
-ANC now 900; consider abx if doesnt improve. might need neulasta
hematology consulted, follows up with Dr Toney outpatient
Acute bilateral DVTs
on eliquis outpatient
currently on hep
History of hypertension
Midodrine
DVT
IV heparin
DVT prophylaxis�heparin
CODE STATUS�DNR
I spent a total of 51 minutes with the patient or on the floor. More than 50% of this time involved counseling and coordination of care.
Anticipated Discharge: 24 - 48 hours
Subjective/Interval History
-
Date of Service: May 03, 2025
Has some nausea and vomiting
Objective Data
-
Labs:
Laboratory Results
05/03/25 05/03/25 05/03/25
03:48 11:48 18:00
WBC 2.2 L*
Hgb 9.0 L
Hct 27.4 L
Plt Count 130
APTT 167.3 H* 77.2 H Pending
Sodium 133 L
Potassium 3.3 L
Chloride 109 H
Carbon Dioxide 29
BUN 5 L
Creatinine 0.3 L
Glucose 105 H
Calcium 7.5 L
Total Bilirubin 0.2
AST 19
ALT 15
Alkaline Phosphatase 75
Vital Signs:
Vital Signs
Temp Pulse Resp BP Pulse Ox
97.1 F 76 16 112/80 96
05/03/25 12:24 05/03/25 12:24 05/03/25 12:24 05/03/25 12:24 05/03/25 12:24
I&O
05/02/25 05/03/25 05/04/25
06:59 06:59 06:59
Intake Total 1380 / 1380 1085 / 1085
Output Total 675 / 675 400 / 400
Balance 705 / 705 685 / 685
--- NOTE | 2025-05-03 14:00 | PTCARENOTE ---
pt vomited after eating/ taking pills. unable to take potassium PO- dr adams notified, order received to start IVF with potassium
[2025-05-03] MEDS: D5/0.9% with KCL 40 MEQ 1000 IV (15:46)
[2025-05-03 18:44] LABS: APTT 79.2 Sec (23.4-35.0)
[2025-05-03] MEDS: KCL 20 MEQ PO (21:05)
[2025-05-03] MEDS: TOPROL XL 12.5 MG PO (21:06)
[2025-05-04] VITALS (9 sets, daily range): BP systolic 100–134; BP diastolic 63–77; BMI 17.1
[2025-05-04 03:51] LABS: Hematocrit 28.0 % (37.0-47.0); Hemoglobin 9.1 g/dL (12.0-16.0); Mean Corp Hgb Conc. 32.5 g/dL (33.0-37.0); Mean Corpuscular Volume 89.7 fL (81.0-99.0); Platelet Count 131 10^3/uL (130-400); Red Cell Dist. Width 14.8 % (11.5-14.5)
[2025-05-04 03:56] LABS: APTT 52.8 Sec (23.4-35.0)
--- NOTE | 2025-05-04 03:56 | PTCARENOTE ---
Pt. complaining of nausea at beginning of shift. Medicated with Compazine which was effective; pt. able to take PO meds later in evening without any further nausea and/or vomiting. No complaints of chest pain/discomfort, NSR on the monitor. Pt.
sleeping most of night.
[2025-05-04 04:23] LABS: ALT (SGPT) 15 U/L (0-35); AST (SGOT) 19 U/L (14-36); Albumin 1.8 g/dl (3.5-5.0); Alkaline Phosphatase 79 U/L (38-126); Blood Urea Nitrogen 5 mg/dl (7-17); Calcium 7.7 mg/dl (8.4-10.2); Carbon Dioxide 27 mmol/L (22-30); Chloride 108 mmol/L (98-107); Estimated Creatinine Clearance 43 ml/min; Glucose 97 mg/dl (70-99); Potassium 4.4 mmol/L (3.5-5.1); Sodium 132 mmol/L (135-145); Total Protein 3.5 g/dl (6.3-8.2); eGFR > 60.00
[2025-05-04 06:30] LABS: Absolute Neutrophils -Man Diff 0.8 10^3/uL (1.4-6.5); Normal RBC Morphology Yes; Platelets Checked Yes
[2025-05-04 06:31] LABS: Total Cells Counted 100
[2025-05-04] MEDS: D5/0.9% with KCL 40 MEQ 1000 IV (07:37)
[2025-05-04] MEDS: COMPAZINE 5 MG IV ×2 (08:21→15:11)
[2025-05-04] MEDS: MIRALAX PO (08:27)
[2025-05-04] MEDS: PEPCID 20 MG PO (08:28)
[2025-05-04] MEDS: IMDUR (EXTENDED RELEASE) 15 MG PO (08:28)
[2025-05-04] MEDS: FEOSOL 325 MG PO (08:28)
[2025-05-04] MEDS: CARAFATE SUSPENSION 1 GM PO ×4 (08:29→23:28)
[2025-05-04] MEDS: PROTONIX 40 MG PO ×2 (08:29→20:13)
[2025-05-04] MEDS: MAGNESIUM OXIDE 800 MG PO (08:29)
[2025-05-04] MEDS: KCL PO ×3 (08:29→20:16)
[2025-05-04] MEDS: COLACE 100 MG PO (08:29)
[2025-05-04] MEDS: FOLVITE 1 MG PO (08:29)
[2025-05-04] MEDS: VITAMIN B-12 1000 MCG PO (08:29)
--- NOTE | 2025-05-04 09:01 | W.PN.CD ---
Today's Communication / Plan
-
stable overnight. remains in sinus
continue with medical therapy for CAD
Echo today
reviewed with Dr Craig
Impression / Plan
-
Chest pain/NSTEMI:
- Suspect NSTEMI (vs type II [place] given anemia, lymphoma) troponin peak 0.18
- CP Associated with nausea an vomiting
- Episode was noted in the afternoon on 04/30/2025.
- After N/V this AM had 5 min of lower sternal pain 05/01/2025
- Added low dose BB and low dose nitrates => continue
- antiplatelet med not added to chronic Eliquis as her frail state risks > benefits in my mind. No ASA
- LDL with no statin <55 LDL 13 => NO STATIN
- As Per Dr Victor note. Plan to continue with medical therapy with no plan for cathat this time.cath. No Cardaic cath
N/V
- Likely from a GI process
- Less likely from ischemia
- Has been on BID PPI an sucralfate
Anemia, prior GI bleed
DVT:
- US 03/23/25 DVT bilat LE R > L
- On Eliquis
Gastric large cell lymphoma:
- Hospitalist following
-Seen by Dr. Diego for cardio oncology evaluation. At that time was receiving Adriamycin containing chemotherapy. Plan for follow-up in July with echo with strain
-prior history of GI bleed with lymphoma
Hypotension:
-has prn midodrine at home. Daughter states she has not been using it.
CODE STATUS: DNR
Subjective: no cp or sob
- Echocardiogram from October 29, 2024 with normal EF, mild AR, mild to moderate TR
Physical Exam
Vital Signs/Labs
Vital Signs
Temp Pulse Resp BP Pulse Ox
97.4 F 61 14 116/63 90
05/04/25 07:06 05/04/25 07:06 05/04/25 07:06 05/04/25 02:45 05/04/25 07:06
05/03/25 05/04/25 05/05/25
06:59 06:59 06:59
Actual Weight 39.3 kg 43.7 kg
05/04/25 03:00
05/04/25 03:00
APTT 52.8 Sec (23.4-35.0) H 05/04/25 03:00
Triglycerides 53 mg/dl (10-149) 05/02/25 03:30
LDL Cholesterol, Calc 13 mg/dl 05/02/25 03:30
VLDL Cholesterol, Calc 10 mg/dl (0-30) 05/02/25 03:30
HDL Cholesterol 68 mg/dl 05/02/25 03:30
LAB Results
05/01/25 05/01/25 05/02/25
10:00 16:29 03:30
Troponin I 0.182 H* D 0.138 H* 0.077 H*
05/02/25 05/02/25 05/03/25
14:00 22:00 03:48
Troponin I Cancelled Cancelled 0.052 H*
Physical Exam
Constitutional: No acute distress and Other (frail. no distress)
Cardiovascular: Rhythm & rate is regular
Respiratory: Wheeze Absent and Rhonchi Absent
GI: Soft
Neuro/Psych: Alert
Data Reviewed
-
Date of Service: May 04, 2025
Medical Decision Making: Reviewed Test Results
EKG: Other (telemetry . nsr)
Medical Tests (PFT, Pathology etc): Report Reviewed by me
Labs: Labs Reviewed by me
--- NOTE | 2025-05-04 09:34 | CON.GI ---
Addendum entered and electronically signed by Mehdi Cali MD 05/04/25 12:49:
I personally performed a history and physical exam of the patient and discussed management with the resident. I reviewed the resident's note and agree with the documented findings and plan of care HPI/CC.
Ms. Harris is an 85-year-old female known to our practice with recent diagnosis of diffuse large B-cell lymphoma by Dr. Harper October 2024. Since then she is undergoing chemotherapy, also had DVT in March 2025, Eliquis. She was recently seen in our
office with PET scan showing improvement in the stomach FDG avidity although still present, and CT on admission showed gastric distention consistent with likely residual neoplasm or posttreatment effect/inflammation. She was admitted May 01 with
nausea and vomiting and chest pain and was found to have a non-STEMI which they thought was secondary to a GI process less likely from ischemia. The plan was to avoid cardiac cath. I discussed with patient's outpatient GI doctor and nurse
practitioner, oncology, hospitalist. I discussed with daughter and patient at bedside at length. We discussed upper endoscopy versus palliative care/hospice. At this time, they wish to focus on comfort and they do not want to be aggressive
measures which is reasonable. Therefore, we will hold off on upper endoscopy at this time. GI will sign off. Please call with any questions or issues or changes in clinical status.
Original Note:
Consultation
-
Date/Time Consultation Requested: 05/03/2025
Date/Time Consultation Performed: 05/04/2025
Requesting Provider: Fernando Neville
Performing Provider: Elisa Cali
Reason for Consultation: Nausea/Vomiting
Medical History
Chief Complaint / HPI
Chief Complaint: Chest Pain
History of Present Illness:
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
PET scan on 04/14/2025 showing mild wall thickening and FDG avidity throughout the stomach reflecting residual neoplasm vs. post treatment inflammatory changes. She initially presented with Chest pain, N/V, found to have NSTEMI, and n/v felt to be GI
process for which we were consulted.
Pt was in the middle of nursing team attempting to replace IV access when I met with her. Her skin is very thin, as is she. She is otherwise resting comfortably and has no acute complaints.
Past Medical History
Past Medical History: Cancer (DLBC Lymphoma of the Stomach) and HTN
Social History
Tobacco: Non-Smoker
Alcohol: None
Drug: None
Living: With Family
Family History
Family History: Reviewed & Not Pertinent
Allergies / Home Medications
Allergy/AdvReac Type Severity Reaction Status Date / Time
No Known Allergies Allergy Verified 05/01/25 12:47
�Medication �Instructions �Recorded
cyanocobalamin (vitamin B-12) 1,000 mcg PO DAILY 30 days #30 tabs 11/02/24
1,000 mcg tablet (Vitamin B-12)
ferrous sulfate 325 mg (65 mg 325 mg PO DAILY #30 tabs 11/02/24
iron) tablet
folic acid 1 mg tablet 1 mg PO DAILY 30 days #30 tabs 11/02/24
Tums 2 tab PO DAILYPRN PRN gerd 03/22/25
magnesium oxide 800 mg PO DAILY Stroke 03/22/25
midodrine 5 mg tablet 5 mg PO DAILYPRN PRN hypotension 03/22/25
pantoprazole 40 mg tablet,delayed 40 mg PO BID Gastrointestinal 03/27/25
release (Protonix) Issue #14 tabs
potassium chloride 20 mEq 20 meq PO BID #60 tabs 03/27/25
tablet,extended release(part/cryst)
sucralfate 100 mg/mL oral 10 ml PO ACHS 30 days #1,200 mL 03/27/25
suspension (Carafate)
apixaban 5 mg tablet (Eliquis) 5 mg PO BID Blood Clot 04/30/25
Prevention/Tx
Review of Systems
-
History Source: Patient and Family
All other systems: A 12 pt ROS was Negative except as stated above in HPI
Vital Signs
Temp Pulse Resp BP Pulse Ox
97.4 F 61 14 116/63 90
05/04/25 07:06 05/04/25 07:06 05/04/25 07:06 05/04/25 02:45 05/04/25 07:06
Physical Exam
Exam
General: No Apparent Distress, Comfortable and Other (Cachectic)
HEENT: Normocephalic, Anicteric, Moist Mucous Membranes and Atraumatic
Respiratory: Clear and Non Labored Respirations
Cardiac: S1/S2 and Regular Rhythm
Breast: Deferred by me
GI: Non Tender, Non Distended and Flat
Rectal: Deferred by Provider
Musculoskeletal: No Clubbing, No Cyanosis and No Edema
Skin: Warm, Dry and Other (scattered ecchymosis )
Neuro: AO x 3
Results
WBC 2.5 10^3/uL (4.8-10.8) L 05/04/25 03:00
Hgb 9.1 g/dL (12.0-16.0) L 05/04/25 03:00
Hct 28.0 % (37.0-47.0) L 05/04/25 03:00
MCV 89.7 fL (81.0-99.0) 05/04/25 03:00
Plt Count 131 10^3/uL (130-400) 05/04/25 03:00
Absolute Neuts (auto) 1.0 10^3/uL (1.4-6.5) L 05/02/25 03:30
APTT 52.8 Sec (23.4-35.0) H 05/04/25 03:00
Sodium 132 mmol/L (135-145) L 05/04/25 03:00
Potassium 4.4 mmol/L (3.5-5.1) D 05/04/25 03:00
Chloride 108 mmol/L (98-107) H 05/04/25 03:00
Carbon Dioxide 27 mmol/L (22-30) 05/04/25 03:00
BUN 5 mg/dl (7-17) L 05/04/25 03:00
Creatinine 0.4 mg/dL (0.6-1.0) L 05/04/25 03:00
Calcium 7.7 mg/dl (8.4-10.2) L 05/04/25 03:00
Total Bilirubin 0.2 mg/dl (0.2-1.3) 05/04/25 03:00
AST 19 U/L (14-36) 05/04/25 03:00
ALT 15 U/L (0-35) 05/04/25 03:00
Alkaline Phosphatase 79 U/L (38-126) 05/04/25 03:00
Diagnostic Image Results:
Prior GI Procedures:
EGD:
Colonoscopy:
Assessment / Plan
-
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
PET scan on 04/14/2025 showing mild wall thickening and FDG avidity throughout the stomach reflecting residual neoplasm vs. post treatment inflammatory changes. She initially presented with Chest pain, N/V, found to have NSTEMI, and n/v felt to be GI
process for which we were consulted.
ASSESSMENTS:
#NSTEMI
#Neutropenia
#Nausea/Vomiting
#Diffuse Large B-Cell Lymphoma of Stomach
#Hypertension
#Hyponatremia
#Acute BL LE DVTs (March 2025)
PLAN:
Discussed at length with patient and patient's daughter. She was scheduled for outpatient EGD on 05/13/2025 for follow up staging/visual evaluation after equivocal PET Scan showed residual neoplasm vs. inflammatory changes in gastric mucosa. After
speaking with the daughter, it seems that the pt does not want more chemo and they both feel that she would not tolerate radiation. The patient also does not want feeding tubes. Given her tenuous condition, current NSTEMI and frailty, it is not
unreasonable to hold off on EGD at this time, especially if the patient would not want aggressive treatment measures if the findings indicate residual neoplasia. Impending discussion on palliative care/hospice is appropriate.
-
-
Thank you for consultation and allowing me to participate in the patient's care. Please call the cloud operations engineer GI physician during the after hours with any questions or concerns.
--- NOTE | 2025-05-04 09:41 | W.PN.HOSP.TC ---
Today's Communication/Plan
-
Echo
GI and oncology to evaluate with consideration of repeat EGD.
IV heparin while off Eliquis.
PT evaluation
Goals of care discussion depends on above-mentioned workup.
Assessment / Plan
Assessment / Plan
85-year-old with history of large B-cell lymphoma of the stomach status post last chemotherapy on March 04 presenting to the emergency department with episode of nausea vomiting which has since was found to have elevated troponin to 0.042 in the
emergency department. He also had mild ST changes. She is currently chest pain-free and in no acute distress. She has not had any nausea or vomiting since this morning. Her labs shows leukopenia without neutropenia. She also has a sodium of 128.
Elevated troponin
Suspect NSTEMI versus type II [place]
trop noted
cw IV heparin
Cardiology following
Echo pending
low dose toprol
Nausea and vomiting
denies abdominal pain
denies previous symptoms
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
CT abdomen/pelvis with new moderate gastric distention with mild gastric wall thickening. Patient has persistent nausea and vomiting. GI consulted
cw compazine
On PPI twice daily and Carafate
was scheduled for EGD per daughter this month
Would not start Eliquis and will keep IV heparin if GI needs to perform any intervention
Hyponatremia -baseline sodium around 130. Suspect this is related to chronic low solute intake. She is not on any SSRI or diuretic
-Continue potassium supplementation
-Gentle hydration
-Free water restriction
-Continue midodrine
Leukopenia -patient with history of B-cell lymphoma of the stomach status post chemotherapy. According to family she has completed the course of chemotherapy and is felt to be in remission. No signs of acute infection
-ANC now 900; consider abx if doesnt improve. might need neulasta
hematology consulted, follows up with Dr Toney outpatient
Acute bilateral DVTs
on eliquis outpatient
currently on hep
History of hypertension
Midodrine
DVT
IV heparin
DVT prophylaxis�heparin
CODE STATUS�DNR
Anticipated Discharge: 24 - 48 hours
Subjective/Interval History
-
Date of Service: May 04, 2025
Objective Data
-
Labs:
Laboratory Results
05/04/25 05/04/25
03:00 10:50
WBC 2.5 L
Hgb 9.1 L
Hct 28.0 L
Plt Count 131
APTT 52.8 H Pending
Sodium 132 L
Potassium 4.4 D
Chloride 108 H
Carbon Dioxide 27
BUN 5 L
Creatinine 0.4 L
Glucose 97
Calcium 7.7 L
Total Bilirubin 0.2
AST 19
ALT 15
Alkaline Phosphatase 79
Vital Signs:
Vital Signs
Temp Pulse Resp BP Pulse Ox
97.4 F 61 14 116/63 90
05/04/25 07:06 05/04/25 07:06 05/04/25 07:06 05/04/25 02:45 05/04/25 07:06
I&O
05/03/25 05/04/25 05/05/25
06:59 06:59 06:59
Intake Total 1085 / 1085 1911
Output Total 400 / 400 400 / 400
Balance 685 / 685 1512 / 1512
Physical Exam
-
General: Well Developed, No Apparent Distress, Appears Chronically Ill and Cachectic
HEENT: Normocephalic, Atraumatic and Moist Mucous Membranes
Respiratory: Clear to Auscultation
Cardiac: Regular Rhythm and S1/S2; Negative Murmur, Rub or Gallop
GI: Soft, Nontender, Nondistended and Normal Bowel Sounds; Negative Organomegaly
Rectal: Deferred by Provider
Musculoskeletal: No Clubbing, No Cyanosis and No Edema
Skin: Negative Rash
Neuro: Nonfocal/Grossly Intact
--- NOTE | 2025-05-04 10:30 | WOUNDNOTE ---
GEORGI RN NOTE: Patient admitted with vomiting and elevated troponin, PMH reviewed in chart. Spoke to nurse Lucius who confirmed patient has a tiny stage 2 PI on sacrum, silicone foam in use and air mattress. Very fragile skin has reported scab on L arm
from a skin tear. Silicone foam in use on L arm, nurse said skin is paper thin and concerned skin will rip with removal. Nurse willing to remove dressing, adhesive remover, adaptic, gauze and fatmata given for next dressing if needed. Can cancel
consult, goals of care being discussed with family by Dr. Craig.
[2025-05-04] MEDS: HEPARIN 25000 UNITS/250 ML IV (11:12)
[2025-05-04 11:43] LABS: APTT 41.8 Sec (23.4-35.0)
--- NOTE | 2025-05-04 14:02 | CON.ONC ---
Documented by User: Sylvia Dang DO, Resident 05/04/25 14:15
Consultation
-
Date Consultation Requested: 05/03/25
Date Consultation Performed: 05/04/25
Requesting Provider: Fernando Neville MD
Performing Provider: Dr. Martinez
Reason for Consultation: Large B-Cell Lymphoma
Impression
Impression
This is an 85 y/o female with pmhx of gastric large B-cell lymphoma who presented on the hospital on 04/30/2025 with nausea, vomiting and chest pain found to have an NSTEMI
Plan
Plan
Gastric Large B-Cell Lymphoma
-Extensive conversation with patient and her daughter about goals of care moving forward
-Discussed option of outpatient hospice program with advice that patient's decision to enroll in hospice is not binding, and she can decide to pursue treatment or stop treatment at any time.
-At this point in time, both patient and her daughter are interested in avoiding excessive testing and treatments as they do not feel that she is strong enough to tolerate them.
-Will monitor
Patient History
History of Present Illness
This is an 85 y/o female who presented on the hospital on 04/30/2025 with nausea, vomiting and chest pain. She was recently diagnosed with gastric large B-cell lymphoma in 10/2024. She underwent mini-R-CHOP x 6 cycles which was completed on 03/03/2025.
Recent PET scan from 04/14/2025 showed mild wall thickening and FDG avidity throughout the stomach, markedly improved from prior PET on 11/18/2024 and may reflect residual neoplasm and or post-treatment inflammation.
In the ED on 04/30, she was found to have NSTEMI with a troponin peak of 0.18, possibly secondary to GI process. Her WBC was low at 2.2, her hemoglobin was low at 9.9, her hematocrit was low at 30.5, and her RDW was elevated at 15.2. Chest/Abdomen
X-ray showed no acute infiltrates. CT scan showed moderate gastric distention with stable mild gastric wall thickening about the gastric antrum, as well as. volume overload or third spacing (severe and progressed).
Cardiology and Gastroenterology were consulted and she was admitted to the hospital. She was ultimately not interested in cardiac catheterization or stent placement, and has been closely monitored until today.
Patient reports feeling better today than when she came in, though does state she is �not doing so hot�. She most recently saw outpatient oncology 2-3 weeks ago, and [place] the [place]. She only began to feel nausea, vomiting, abdominal
discomfort starting on Saturday right before her hospitalization according to her daughter. Patient reports she is still belching frequently and has some abdominal discomfort without pain. Her last bowel movement was yesterday.
Prior to her diagnosis of large B-Cell lymphoma, she was able to ambulate independently without a walker. She suddenly gained fluid weight just prior to her diagnosis, at which point her weight was 145lbs. Following her first round of chemotherapy,
she dropped to 119lbs. Her daughter states that she has never gained weight back following chemo, and that even before chemotherapy her mother did not eat very much.
Past-Medical/Surgical History
Gastric Large B-Cell Lymphoma (Diagnosed in 10/2024, s/p chemotherapy)
Osteoarthritis
Essential Hypertension
GERD
Patient Medication
�Medication �Instructions �Recorded �Confirmed �Last Taken �Type
cyanocobalamin (vitamin B-12) 1,000 mcg PO DAILY 30 days #30 tabs 11/02/24 05/01/25 03/22/25 Rx
1,000 mcg tablet (Vitamin B-12)
ferrous sulfate 325 mg (65 mg 325 mg PO DAILY #30 tabs 11/02/24 05/01/25 03/22/25 Rx
iron) tablet
folic acid 1 mg tablet 1 mg PO DAILY 30 days #30 tabs 11/02/24 05/01/25 03/22/25 Rx
Tums 2 tab PO DAILYPRN PRN gerd 03/22/25 05/01/25 3 Days Ago History
~03/19/25
magnesium oxide 800 mg PO DAILY Stroke 03/22/25 05/01/2503/22/25 History
midodrine 5 mg tablet 5 mg PO DAILYPRN PRN hypotension 03/22/25 05/01/25 3 Days Ago History
~03/19/25
pantoprazole 40 mg tablet,delayed 40 mg PO BID Gastrointestinal 03/27/25 05/01/25 03/22/25 Rx
release (Protonix) Issue #14 tabs
potassium chloride 20 mEq 20 meq PO BID #60 tabs 03/27/25 05/01/25 Unknown Rx
tablet,extended release(part/cryst)
sucralfate 100 mg/mL oral 10 ml PO ACHS 30 days #1,200 mL 03/27/25 05/01/25 Unknown Rx
suspension (Carafate)
apixaban 5 mg tablet (Eliquis) 5 mg PO BID Blood Clot 04/30/25 05/01/25 Unknown History
Prevention/Tx
Active Medications
Generic Name Dose Route Start Last Admin
Trade Name Freq PRN Reason Stop Dose Admin
Calcium Carbonate 500 mg 05/01/25 03:51
Calcium Carbonate 500 Mg Tablet PO 05/29/25 03:50
DAILYPRN PRN
gerd
Cyanocobalamin 1,000 mcg 05/01/25 08:00 05/04/25 08:29
Cyanocobalamin (Vitamin B-12) 500 Mcg Tablet PO 05/29/25 07:59 1,000 mcg
DAILY CHA Administration
Dextrose 12.5 grams 05/01/25 05:14
Dextrose 50% (0.5 Grams/Ml) 50 Ml Syringe IV 05/29/25 05:13
[id number] PRN
hypoglycemia
Docusate Sodium 100 mg 05/02/25 20:00 05/04/25 08:29
Docusate Sodium 100 Mg Capsule PO 05/30/25 19:59 100 mg
BID CHA Administration
Famotidine 20 mg 05/02/25 08:00 05/04/25 08:28
Famotidine 20 Mg Tablet PO 05/30/25 07:59 20 mg
DAILY CHA Administration
Ferrous Sulfate 325 mg 05/01/25 08:00 05/04/25 08:28
Ferrous Sulfate 325 Mg Tablet PO 05/29/25 07:59 325 mg
DAILY CHA Administration
Folic Acid 1 mg 05/01/25 08:00 05/04/25 08:29
Folic Acid 1 Mg Tablet PO 05/29/25 07:59 1 mg
DAILY CHA Administration
Heparin Sodium 25,000 units in 250 mls @ 0 mls/hr 05/01/25 06:00 05/04/25 11:12
Heparin 62392 Units/250 Ml IV 250 mls
PER PROTOCOL CHA Administration
Protocol
Per Protocol
Potassium Chloride/Dextrose/Sod Cl 40 meq in 1,000 mls @ 60 mls/hr 05/03/25 15:00 05/04/25 07:37
D5/0.9% With Kcl 40 Meq IV 1,000 mls
.[id number] HCA Administration
Isosorbide Mononitrate 15 mg 05/02/25 08:00 05/04/25 08:28
Isosorbide Mononitrate 30 Mg Extended Release Tablet PO 05/30/25 07:59 15 mg
DAILY CHA Administration
Magnesium Oxide 800 mg 05/01/25 08:00 05/04/25 08:29
Magnesium Oxide 400 Mg Tablet PO 05/29/25 07:59 800 mg
DAILY CHA Administration
Metoprolol Succinate 12.5 mg 05/01/25 22:00 05/03/25 21:06
Metoprolol 12.5 Mg Extended Release Dose (1/2 Of 25 Mg Xl Tablet) PO 05/29/25 21:59 12.5 mg
HS CHA Administration
Midodrine 5 mg 05/01/25 03:42
Midodrine 5 Mg Tablet PO 05/29/25 03:41
DAILYPRN PRN
hypotension
Pantoprazole Sodium 40 mg 05/01/25 08:00 05/04/25 08:29
Pantoprazole 40 Mg Delayed Release Tablet PO 05/29/25 07:59 40 mg
BID CHA Administration
Polyethylene Glycol 17 grams 05/03/25 08:00 05/04/25 08:27
Polyethylene Glycol Powder 17 Grams Packet PO 05/31/25 07:59 Not Given
DAILY CHA
Potassium Chloride 20 meq 05/01/25 08:00 05/04/25 08:29
Potassium Chloride 20 Meq Extended Release Tablet PO 05/29/25 07:59 Not Given
BID CHA
Prochlorperazine Edisylate 5 mg 05/02/25 18:26 05/04/25 08:21
Prochlorperazine 10 Mg/2 Ml Vial IV 05/30/25 18:25 5 mg
Q6HPRN PRN Administration
nausea and vomiting
Sucralfate 1 gm 05/01/25 07:30 05/04/25 11:12
Sucralfate (Carafate) 1 Gm/10 Ml Cup PO 05/29/25 07:29 1 gm
ACHS CHA Administration
Review of Systems
-
History Source: Patient
Constitutional: Reports Weight Loss, No Appetite and Fatigue; Denies Weight Gain
GI: Reports Abdominal Pain, Nausea, Vomiting, Diarrhea, Anorexia, Bloated and Indigestion
Physical Exam
-
General: Comfortable, Appears Chronically Ill and Cachetic
Cardiology: Normal Sinus Rhythm, S1 and S2
GI: Soft
Skin: Warm and Dry
Psych: Calm
Labs
Lab Results
WBC 2.5 10^3/uL (4.8-10.8) L 05/04/25 03:00
RBC 3.12 10^6/uL (4.20-5.40) L 05/04/25 03:00
Hgb 9.1 g/dL (12.0-16.0) L 05/04/25 03:00
Hct 28.0 % (37.0-47.0) L 05/04/25 03:00
MCV 89.7 fL (81.0-99.0) 05/04/25 03:00
MCH 29.2 pg (27.0-31.0) 05/04/25 03:00
MCHC 32.5 g/dL (33.0-37.0) L 05/04/25 03:00
RDW 14.8 % (11.5-14.5) H 05/04/25 03:00
Plt Count 131 10^3/uL (130-400) 05/04/25 03:00
MPV 9.8 fL (7.4-10.4) 05/04/25 03:00
Abs Immat Gran (auto) 0.1 10^3/uL (0-0.05) H 05/02/25 03:30
Absolute Neuts (auto) 1.0 10^3/uL (1.4-6.5) L 05/02/25 03:30
Absolute Lymphs (auto) 1.2 10^3/uL (1.2-3.4) 05/02/25 03:30
Absolute Monos (auto) 0.3 10^3/uL (0.1-0.6) 05/02/25 03:30
Absolute Eos (auto) 0.0 10^3/uL (0-0.7) 05/02/25 03:30
Absolute Basos (auto) 0.0 10^3/uL (0-0.2) 05/02/25 03:30
Immature Gran % 5.3 % (0-0.5) H 05/02/25 03:30
Neutrophils % 38.3 % (42.2-75.2) L 05/02/25 03:30
Lymphocytes % 44.4 % (20.5-51.1) 05/02/25 03:30
Monocytes % 10.5 % (1.7-9.3) H 05/02/25 03:30
Eosinophils % 0.4 % (0-6) 05/02/25 03:30
Basophils % 1.1 % (0-2) 05/02/25 03:30
Creatinine 0.4 mg/dL (0.6-1.0) L 05/04/25 03:00
Vital Signs
Vital Signs
Temp Pulse Resp BP Pulse Ox
97.4 F 75 15 100/75 100
05/04/25 11:27 05/04/25 11:29 05/04/25 11:27 05/04/25 11:29 05/04/25 11:27

Documented by User: Tushar Martinez MD 05/04/25 15:20
Impression
Impression
Large B cell gastric lymphoma, markedly improved or perhaps in complete remission after recent chemotherapy
Continued weight loss and progressive weakness, possibly due to chemotherapy
Persistent leukopenia, possibly due to chemotherapy
Persistent upper GI symptoms, unclear etiology
Plan
Plan
Gastric Large B-Cell Lymphoma
-Extensive conversation with patient and her daughter about goals of care moving forward
-Discussed option of outpatient hospice program with advice that patient's decision to enroll in hospice is not binding, and she can decide to pursue treatment or stop treatment at any time.
-At this point in time, both patient and her daughter are interested in avoiding excessive testing and treatments as they do not feel that she is strong enough to tolerate them.
-Will monitor
Attending: Agree with plans as outlined by family practice resident. Certainly her overall medical condition is of great concern, unclear how much she may bounce back. It is a little disspriting our point of view that her cancer has done so well,
but she has not. I nevertheless reinforced with her and her daughter that if they wish to take a palliative/hospice approach, that I would support them in that. For the time being, we are going on a day-to-day basis. An EGD could be considered, I
am not certain that anything we see would have a treatment that she would tolerate.
--- NOTE | 2025-05-04 16:11 | CM ---
spoke to pt and daughter, they are interested in [facility], referral faxed.
[2025-05-04 18:44] LABS: APTT > 200 Sec (23.4-35.0)
--- NOTE | 2025-05-04 19:22 | PTCARENOTE ---
~[id number]: Handoff report received from nightshift RN. Pt AOx4 but quiet and withdrawn, SB on tele 50s, SBP 100s-120s, RA satting 100%. Pt denies pain at this time. Purewik from overnight removed and patient Ax2 with walker OOB to chair. R upper
chest SubQ port accessed and infusing [id number] infusing per order. Heparin infusing into R AC PIV. PIV site leaking, attempted two PIV sticks but unsuccessful, VAT team made aware and 24G placed. Heparin gtt restarted into new PIV site. PTT obtained
and heparin gtt adjusted per result. BL elbows +3 edema noted, BUE elevated on pillows. St 2 POA on sacrum, mepilex in place, CDI. L FA skin tear POA redressed with adaptic, gauze and kerlix, CDI. L upper back foam present for skin tear POA, CDI.
Weight obtained this AM, pt weight increased about 9lbs since yesterday, hospitalist made aware. GI in to see patient and daughter at bedside. ECHO completed. Compazine given prior to medication administration this AM for nausea. Patient did have
one episode of vomiting after swallowign medications, it was mucousy and contained no pills. Patient tolerated breakfast. Ax2 with walker back to bed. All needs met at this time,call robles within reach.
~[id number]: Patient resting in bed. BUE edema +3 pitting and weeping. BUE placed on pillows with blue chucks for weeping. LUE dressing changed. Pt denies pain at this time. VSS. Daughter at bedside. All needs met at this time, call robles within
reach.
~[phone]: PTT drawn and sent to lab. PTT resulted >200. Heparin gtt held per protocol. All needs met at this time, call robles within reach. Handoff report given to nightshift RN.
[2025-05-04] MEDS: COLACE PO (20:16)
[2025-05-04] MEDS: TOPROL XL 12.5 MG PO (23:28)
[2025-05-05] MEDS: NSS 500 IV (00:06)
--- NOTE | 2025-05-05 00:45 | PTCARENOTE ---
assumed care of patient at the change of shift. AAOx3. pleasant. denies any pain. SR on tele 60s. bp stable. edema noted b/l elbows/forearms, +3. weeping. no change from previous shift. heparin gtt restarted at 2100 per protocol. educated patient to
inform RN with any changes. comfort measures provided. t/r patient. call robles within reach. makes needs known.
orders needed for PRN heparin lock. updated Nash arrington [employer]. order placed for KVO NSS instead, see mar.
[2025-05-05 03:30] VITALS: BP 110/76
[2025-05-05 04:04] LABS: Hematocrit 27.9 % (37.0-47.0); Hemoglobin 9.0 g/dL (12.0-16.0); Mean Corp Hgb Conc. 32.3 g/dL (33.0-37.0); Mean Corpuscular Volume 89.1 fL (81.0-99.0); Platelet Count 130 10^3/uL (130-400); Red Cell Dist. Width 14.6 % (11.5-14.5)
[2025-05-05 04:12] LABS: APTT 57.3 Sec (23.4-35.0)
[2025-05-05 04:26] LABS: Blood Urea Nitrogen 5 mg/dl (7-17); Calcium 8.3 mg/dl (8.4-10.2); Carbon Dioxide 27 mmol/L (22-30); Chloride 109 mmol/L (98-107); Estimated Creatinine Clearance 47 ml/min; Glucose 75 mg/dl (70-99); Potassium 4.6 mmol/L (3.5-5.1); Sodium 133 mmol/L (135-145); eGFR > 60.00
[2025-05-05 05:46] VITALS: BMI 17.3
[2025-05-05 07:22] VITALS: BP 123/88
[2025-05-05] MEDS: COMPAZINE 5 MG IV (08:16)
--- NOTE | 2025-05-05 08:54 | W.PN.CD ---
Today's Communication / Plan
-
Patient has not had chest discomfort in the last 3 days. Appears to be feeling well today without nausea or abdominal pain. Suspect most of her presentation including chest symptoms related to GI issues.
Patient had some empiric adjustments in her medications and is currently maintained on low-dose isosorbide. Would continue current therapy
Patient is on Eliquis as an outpatient for history of DVT. Will transition from IV heparin back to Eliquis if okay with primary team. Would defer dosing of her Eliquis to hematology.
Please call if additional assistance required
Impression / Plan
-
Chest pain/NSTEMI:
- Suspect NSTEMI (vs type II GA given anemia, lymphoma) troponin peak 0.18
- CP Associated with nausea an vomiting
- Episode was noted in the afternoon on 04/30/2025.
- After N/V this AM had 5 min of lower sternal pain 05/01/2025
- Added low dose BB and low dose nitrates => continue
- antiplatelet med not added to chronic Eliquis as her frail state risks > benefits in my mind. No ASA
- LDL with no statin <55 LDL 13 => NO STATIN
- As Per Dr Victor note. Plan to continue with medical therapy with no plan for cathat this time.cath. No Cardaic cath
N/V
- Likely from a GI process and lymphoma
- Less likely from ischemia
- Treatment as directed by GI and hospitalist.
Anemia, prior GI bleed
DVT:
- US 03/23/25 DVT bilat LE R > L
- On Eliquis
Gastric large cell lymphoma:
- Hospitalist following
-Seen by Dr. Diego for cardio oncology evaluation. At that time was receiving Adriamycin containing chemotherapy. Plan for follow-up in July with echo with strain
-prior history of GI bleed with lymphoma
Hypotension:
-has prn midodrine at home. Daughter states she has not been using it.
CODE STATUS: DNR
Subjective: no cp or sob
- Echocardiogram from October 29, 2024 with normal EF, mild AR, mild to moderate TR
Physical Exam
Vital Signs/Labs
Vital Signs
Temp Pulse Resp BP Pulse Ox
97.3 F 73 20 123/88 95
05/05/25 07:23 05/05/25 08:00 05/05/25 07:23 05/05/25 07:22 05/05/25 07:23
05/04/25 05/05/25 05/06/25
06:59 06:59 06:59
Actual Weight 44.3 kg
05/05/25 03:42
05/05/25 03:42
APTT 57.3 Sec (23.4-35.0) H 05/05/25 03:42
Triglycerides 53 mg/dl (10-149) 05/02/25 03:30
LDL Cholesterol, Calc 13 mg/dl 05/02/25 03:30
VLDL Cholesterol, Calc 10 mg/dl (0-30) 05/02/25 03:30
HDL Cholesterol 68 mg/dl 05/02/25 03:30
LAB Results
05/02/25 05/02/25 05/03/25
14:00 22:00 03:48
Troponin I Cancelled Cancelled 0.052 H*
Physical Exam
Constitutional: No acute distress
Cardiovascular: Rhythm & rate is regular
Respiratory: Wheeze Absent and Rhonchi Absent
GI: Soft and Non tender
Neuro/Psych: Alert
Data Reviewed
-
Date of Service: May 05, 2025
Medical Decision Making: Reviewed Test Results
X-Ray/CT/US/MRI/NUC/PET: Report Reviewed by me
Medical Tests (PFT, Pathology etc): Report Reviewed by me
Labs: Labs Reviewed by me
--- NOTE | 2025-05-05 09:03 | W.PN.ONC2 ---
Today's Communication / Plan
-
.
Impression
Impression
Large B cell gastric lymphoma, markedly improved or perhaps in complete remission after recent chemotherapy
Continued weight loss and progressive weakness, possibly due to chemotherapy
Persistent leukopenia, possibly due to chemotherapy
Persistent upper GI symptoms, unclear etiology
Plan
Plan
Gastric Large B-Cell Lymphoma
-continue [facility] palliative vs comfort focused care
-consider EGD
Subjective/Objective
Subjective
no new complaints
denies pain or bleeding
Vital Signs:
Vital Signs
Temp Pulse Resp BP Pulse Ox
97.3 F 73 20 123/88 95
05/05/25 07:23 05/05/25 08:00 05/05/25 07:23 05/05/25 07:22 05/05/25 07:23
Lab Results:
Laboratory Data
WBC 2.6 10^3/uL (4.8-10.8) L 05/05/25 03:42
Hgb 9.0 g/dL (12.0-16.0) L 05/05/25 03:42
Plt Count 130 10^3/uL (130-400) 05/05/25 03:42
APTT 57.3 Sec (23.4-35.0) H 05/05/25 03:42
eGFR > 60.00 05/05/25 03:42
Physical Exam
thin/frail
scattered ecchymosis/purpura arms, legs, chest
HEENT: Moist Mucous Membranes; No Jaundice
Pulmonary: Other (unlabored)
GI: Soft
[2025-05-05] MEDS: MIRALAX PO (09:04)
[2025-05-05] MEDS: PEPCID 20 MG PO (09:04)
[2025-05-05] MEDS: CARAFATE SUSPENSION 1 GM PO (09:04)
[2025-05-05] MEDS: COLACE PO (09:04)
[2025-05-05] MEDS: PROTONIX 40 MG PO (09:05)
[2025-05-05] MEDS: IMDUR (EXTENDED RELEASE) 15 MG PO (09:07)
[2025-05-05 09:39] LABS: Absolute Neutrophils -Man Diff 1.1 10^3/uL (1.4-6.5); Normal RBC Morphology No; Platelets Checked Yes; Total Cells Counted 100
[2025-05-05 09:40] LABS: Anisocytosis 1+; Hypochromasia 2+; Rouleaux Moderate
[2025-05-05] MEDS: FOLVITE PO (09:45)
[2025-05-05] MEDS: MAGNESIUM OXIDE PO (09:45)
[2025-05-05] MEDS: FEOSOL PO (09:45)
[2025-05-05] MEDS: KCL PO (09:45)
[2025-05-05] MEDS: VITAMIN B-12 PO (09:46)
--- NOTE | 2025-05-05 10:00 | PTCARENOTE ---
Pt AAOx3 w/no c/o CP or SOB; Pt c/o nausea this AM. PRN Compazine IV administered as ordered about 30 mins before eating breakfast. Pt ate 75% of her breakfast & this RN administered a portion of pt's AM meds. Pt vomited approx 15 mins after taking
her Protonix, Imdur, & Famotidine. This RN assisted w/cleaning pt up. Pt refusing to take other PO meds this AM due to the N&V. Will advise .
[2025-05-05 11:16] VITALS: BP 113/79
--- NOTE | 2025-05-05 11:22 | W.DS.TRANS ---
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
-
Discharge Instructions:
Discharge Diagnosis/Procedures NSTEMI
Lymphoma
Diet Regular
Instructions:
Stand-Alone Forms:
Changes to Home Medications: Yes
Discharge Medications:
DC Medications w/original date entered in [employer]
cyanocobalamin (vitamin B-12) 1,000 mcg tablet (Vitamin B-12) 1,000 mcg PO DAILY 30 days #30 tabs 11/02/24
ferrous sulfate 325 mg (65 mg iron) tablet 325 mg PO DAILY #30 tabs 11/02/24
folic acid 1 mg tablet 1 mg PO DAILY 30 days #30 tabs 11/02/24
Tums 2 tab PO DAILYPRN PRN gerd 03/22/25
magnesium oxide 800 mg PO DAILY Stroke 03/22/25
midodrine 5 mg tablet 5 mg PO DAILYPRN PRN hypotension 03/22/25
pantoprazole 40 mg tablet,delayed release (Protonix) 40 mg PO BID Gastrointestinal Issue #14 tabs 03/27/25
potassium chloride 20 mEq tablet,extended release(part/cryst) 20 meq PO BID #60 tabs 03/27/25
sucralfate 100 mg/mL oral suspension (Carafate) 10 ml PO ACHS 30 days #1,200 mL 03/27/25
apixaban 5 mg tablet (Eliquis) 5 mg PO BID Blood Clot Prevention/Tx 04/30/25
isosorbide mononitrate 30 mg tablet,extended release 24 hr 15 mg (1/2 x 30 mg) PO DAILY #30 tabs 05/05/25
metoprolol succinate 25 mg tablet,extended release 24 hr 12.5 mg (1/2 x 25 mg) PO HS #30 tabs 05/05/25
Home Medication Changes
Imdur and Metorporolol started
Pending Results: No
--- NOTE | 2025-05-05 12:14 | PN.CDI ---
CDI
- -
CDI:
Physician Documentation Request
Admit Date: 05/04/25 09:17
Dear Doctor Rafa,
Please review the following and provide your response in the progress notes.
Clinical Indicators:
Pt admitted with chest pain NSTEMI vs Type 2 [place]
Documented per [facility] note 05/04, ' GEORGI RN NOTE: Patient admitted with vomiting and elevated troponin...confirmed patient has a tiny stage 2 PI on sacrum, silicone foam in use and air mattress....'
Physician documentation of the type and location of wounds is required for compliant documentation. Based on the above clinical findings and your assessment, please provide the following in your progress note:
1. Location of the ulcer/wound, including laterality.
2. Type (etiology) of ulcer/wound:
- Pressure (decubitus) ulcer
- Non-pressure ulcer
- Other ( please specify)
Use of terms such as suspected, likely, concern for, or probable (associated with a specific diagnosis that is being evaluated, monitored, or treated as if it exists) are acceptable and can be coded in the inpatient setting, when documented at the
time of discharge.
Thank you,
Enriqueta Collier RN
CDI Specialist
[employer]
Please use your independent medical judgment in providing your response.
*Source: National Pressure Ulcer Advisory Panel (NPUAP)
[2025-05-05] MEDS: CARAFATE SUSPENSION PO (12:36)
[2025-05-05 15:48] VITALS: BP 106/75
== END 2025-05-05 16:43 | disposition hospice, home (50) | DRG 840 ==
LOC: IVU 09:17
PROVIDERS: Emergency Medicine; Internal Medicine; Nurse Practitioner Family; ADMITTING PHYSICIAN Internal Medicine; ATTENDING PHYSICIAN Internal Medicine; CONSULT PHYSICIAN Internal Medicine Cardiovascular Disease; EMERGENCY PHYSICIAN Emergency Medicine; FAMILY PHYSICIAN Family Medicine; OTHER PHYSICIAN Internal Medicine Gastroenterology; OTHER PHYSICIAN Internal Medicine Hematology & Oncology
DX: C83.398 Diffuse large B-cell lymphoma of other extranodal and solid organ sites (principal); D61.810 Antineoplastic chemotherapy induced pancytopenia; I21.4 Non-ST elevation (NSTEMI) myocardial infarction; E87.1 Hypo-osmolality and hyponatremia; L89.152 Pressure ulcer of sacral region, stage 2; D72.829 Elevated white blood cell count, unspecified; E87.70 Fluid overload, unspecified; D64.81 Anemia due to antineoplastic chemotherapy; T45.1X5A Adverse effect of antineoplastic and immunosuppressive drugs, initial encounter; Z66 Do not resuscitate; I95.9 Hypotension, unspecified; I10 Essential (primary) hypertension; K21.9 Gastro-esophageal reflux disease without esophagitis; M19.90 Unspecified osteoarthritis, unspecified site; Z51.5 Encounter for palliative care; Z79.01 Long term (current) use of anticoagulants; Z79.899 Other long term (current) drug therapy; Z92.3 Personal history of irradiation
CPT/HCPCS: 74022; 74176; 80048; 80053; 80061; 82533; 82962; 83935; 84300; 84443; 84484; 85025; 85027; 85730; 93005; 93306; 96361; 96365; 96366; 96367; 96375; 97163; 97530; 99285